=== PATIENT | female | born 1945 | race Caucasian/White ===

== ENCOUNTER 2023-12-11 10:04 | Emergency (ER) | payer OTHER, SELFPAY ==
--- NOTE | ~2023-12-11 | US_ITS ---
EXAMINATION: US ABDOMEN LIMITED CLINICAL INFORMATION: Right upper quadrant pain. COMPARISON: None available. TECHNIQUE: Real-time imaging of the gallbladder and common bile duct only. FINDINGS: GALLBLADDER: Multiple small layering stones are present in the gallbladder. The gallbladder is physiologically distended without wall thickening or pericholecystic fluid. Ramey's sign is positive. COMMON BILE DUCT: Not seen with absolute certainty but could measures 0.3 cm in diameter. US/US abdomen limited IMPRESSION: Cholelithiasis with positive Ramey's sign. No other evidence of cholecystitis is seen.
--- NOTE | ~2023-12-11 | CT_ITS ---
EXAMINATION: CT ABDOMEN AND PELVIS WITH CONTRAST CLINICAL INFORMATION: Right upper quadrant pain COMPARISON: Abdominal ultrasound on 12/11/2023 TECHNIQUE: Multidetector volumetric images were obtained from the superior aspect of the liver through the pubic symphysis following administration 85 mL of Omnipaque 350 intravenous contrast. Sagittal and coronal reformatted images were obtained on the technologist's workstation. Oral contrast: No This CT examination was performed using dose optimization techniques as appropriate, variously including the following: *Automated exposure control *Adjustment of mA and/or kV according to patient size (this includes techniques or standardized protocols for targeted exams where dose is matched to indication/reason for exam; i.e. extremities or head) *Use of iterative reconstruction technique DLP: 644 mGy-cm FINDINGS: LUNG BASES: The visualized lung bases are unremarkable. LIVER, GALLBLADDER, AND BILIARY TREE: The liver is normal in size, shape, and attenuation. No focal hepatic lesion or biliary ductal dilatation is present. The gallbladder is unremarkable with no evidence of gallbladder wall thickening, or obvious pericholecystic inflammatory changes. Cholelithiasis. PANCREAS: Unremarkable. SPLEEN: Unremarkable. ADRENAL GLANDS: Unremarkable. KIDNEYS AND URETERS: The kidneys are normal in size, shape, and attenuation. No hydronephrosis, hydroureter, or calculi seen. No perinephric stranding. BLADDER: Unremarkable. GASTROINTESTINAL TRACT: The small and large bowel are unremarkable. The appendix is unremarkable. ABDOMINAL WALL: No significant hernia is appreciated. LYMPH NODES: Normal. VASCULAR: Unremarkable. PELVIC VISCERA: Unremarkable. OSSEOUS STRUCTURES: Unremarkable. CT/CT abdomen pelvis w IV con IMPRESSION: Cholelithiasis. No evidence of acute cholecystitis. Fleischner guidelines were followed.
--- NOTE | 2023-12-11 10:14 | ECG_ITS ---
Test Reason : ABDOMINAL PAIN Blood Pressure : / mmHG Vent. Rate : 070 BPM Atrial Rate : 070 BPM P-R Int : 150 ms QRS Dur : 074 ms QT Int : 414 ms P-R-T Axes : 052 -32 027 degrees QTc Int : 447 ms Normal sinus rhythm Left axis deviation Cannot rule out Anterior infarct , age undetermined Abnormal ECG No previous ECGs available Referred By: Geetha Asif Electronically Signed By:AGATHA PEREZ
[2023-12-11 10:15] VITALS: BP 138/76; PULSE 70; PULSE 71; RESP 22; TEMP 36.6; O2SAT 100; O2SAT 98; BMI 41.1
--- NOTE | 2023-12-11 10:34 | ED_ITS ---
HPI - General Adult General Chief complaint: Abdominal Pain Stated complaint: RUQ PAIN FROM SNF PER EMS Time Seen by Provider: 12/11/23 10:13 Source: patient Mode of arrival: ambulatory Limitations: no limitations History of Present Illness ED Provider: Geetha Asif PA-C HPI narrative: This is a 78 yo female pmh COPD presenting via EMS from [facility] for RUQ pain radiating to midline and nausea starting last night and worsening this morning. Patient rates the pain a 10/10, constant, and states movement worsens the pain. Also reports mild SOB but states she has a hx of COPD. Patient last ate last night and last bowel movement was this morning. Patient denies fever chills, chest pain, vomiting, diarrhea, constipation, urinary symptoms, headache, weakness, numbness, tingling. No recent travel or sick contacts. Related Data Previous Rx's ?Medication ?Instructions ?Recorded acetaminophen 325 mg capsule 650 mg (2 x 325 mg) PO Q4H PRN 12/11/23 (Tylenol) pain #30 caps Allergies Allergy/AdvReac Type Severity Reaction Status Date / Time adalimumab [From Humira] Allergy Palpitation Verified 12/11/23 10:22 s etanercept [From Enbrel] Allergy Palpitation Verified 12/11/23 10:22 s Review of Systems 2 Review of Systems: Yes all other systems are reviewed and are negative [facility] Past Medical History Attestation statement: The following information was validated with the patient. Source: old records reviewed and nursing notes reviewed Social History Social History Smoked in Last 30 Days: No Use of substances other than those prescribed or required for medical reasons: No Advance Directives: No Physical Exam ED Vital Signs: Vital Signs - 24 hr 12/11/23 10:15 12/11/23 14:47 Temperature 97.9 F 97.2 F Pulse Rate 71 73 Respiratory Rate 22 H 18 Blood Pressure 138/76 121/62 Pulse Oximetry 98 98 Oxygen Delivery Method Room Air Room Air BMI result Body Mass Index 41.1 vss. Appearance: Alert.? Oriented X3.? No acute distress.?Appers uncomfortable on exam table. Head: Normocephalic, atraumatic, no step-offs or deformities Eyes: Pupils equal, round and reactive to light.? Neck: Normal inspection.? Neck supple.? CVS: Normal heart rate and rhythm.? Pulses normal.? Respiratory: No respiratory distress.? Breath sounds normal.? Abdomen: +Extremely tender to palpation in RUQ, +murphys sign, normo-active bowel sounds in all four quadrants? Skin: Skin warm and dry.? Normal skin color.? Normal skin turgor.? Extremities: No lower extremity edema.? No calf ttp. 5/5 strength to bilateral upper and lower extremities Neuro: Oriented X 3.? No motor deficit.? No sensory deficit. CN 2-12 intact Course Reevaluation(s) Reevaluation #1: CBC unremarkable. Chemistry w/ no electrolyte abnormalities needing intervention AST (110) and ALT (64) elevated. A this point, an obstructing stone is suspected. US results still pending. Patient still in pain dilauded ordered. Time: 12:00 Reevaluation #2: Abdominal ultrasound cholelithiasis with positive Ramey sign no other evidence of cholecystitis seen. Abdominal CT cholelithiasis no evidence of acute cholecystitis. Surgery did evaluate this patient who offered for her to stay overnight for observation however patient does not want to stay. Dr. Greenwood recommended she follow up outpatient and return with any new or worsening symptoms. At this time patient to be discharged with Tylenol. Educated patient on diagnosis and treatment plan, answered all question, patient verbalizes understanding. At this time patient will be discharged home, advised to return with new or worsening symptoms. Educated on worrisome signs and symptoms and when to return. At this time I feel comfortable discharge home. She is well-appearing and tolerating p.o. at time of discharge Time: 16:30 Medications Administered Discontinued Medications Generic Name Dose Route Start Last Admin Trade Name Jorge PRN Reason Stop Dose Admin Hydromorphone HCl 0.5 mg 12/11/23 11:52 12/11/23 12:09 Hydromorphone Hcl 0.5 Mg/0.5 Ml Syringe IVPUSH 12/11/23 11:53 0.5 mg ONCE ONE Administration Protocol Iohexol 100 ml 12/11/23 14:27 12/11/23 14:28 Iohexol 350 Mg/Ml 100 Ml Infus..Btl IV 12/11/23 14:28 85 ml ONCE ONE Administration Morphine Sulfate 4 mg 12/11/23 10:32 12/11/23 10:41 Morphine Sulfate 4 Mg/Ml Cartridge IVPUSH 12/11/23 10:33 4 mg ONCE ONE Administration Protocol Medical Decision Making Medical Decision Making [facility] Narrative: 1030 78 yo female pmh COPD presenting via EMS with RUQ abdominal pain and nausea since last night, worsening this morning. PE: Abdomen: +Extremely tender to palpation in RUQ, +murphys sign, normo-active bowel sounds in all four quadrants? Differential: Cholecystitis vs cholelithiasis vs pancreatitis. Unlikely cholangitis, acute abdomen, malignancy, appendicitis, sepsis. Will rule out electrolye abnormalities. No signs of trauma to the area. No bruising. Unlikely shinges. Plan: Labs. imaging, pain control Differential Diagnosis Differential Diagnoses: The differential diagnosis associated with the presentation includes Cholecystitis vs cholelithiasis vs pancreatitis. Unlikely cholangitis, acute abdomen, malignancy, appendicitis, sepsis. Will rule out electrolye abnormalities. No signs of trauma to the area. No bruising. Unlikely shinges. Admission/Observation Consideration of admission/observation: Escalation of care including admission/observation considered possible Lab Data [facility] Lab Attestation statement: I reviewed the patient's lab results. 12/11/23 11:23 12/11/23 11:23 Labs: Lab Results 12/11/23 12/11/23 Range/Units 11:23 11:55 WBC 6.7 (4.8-10.8) X10*3/uL RBC 4.68 (4.20-5.50) X10*6/uL Hgb 13.2 (12.0-16.0) g/dl Hct 38.9 (37.0-47.0) % MCV 83.1 (80.0-98.0) fL MCH 28.2 (27.0-33.0) pg MCHC 33.9 (31.0-35.0) g/dl RDW 15.3 (11.0-16.0) % Plt Count 188 (160-400) X10*3/uL MPV 10.2 (9.4-12.3) fL Immature Gran % (Auto) 0.3 (0.0-0.4) % Neut % (Auto) 67.1 (45-73) % Lymph % (Auto) 21.3 (20-40) % [place] % (Auto) 8.0 (2-11) % Eos % (Auto) 2.4 (0-4) % Baso % (Auto) 0.9 (0-2) % Lymph # (Auto) 1.4 (1.2-4.9) X10*3/uL [place] # (Auto) 0.5 (0.1-1.2) X10*3/uL Eos # (Auto) 0.2 (0.0-0.4) X10*3/uL Baso # (Auto) 0.1 (0.0-0.2) X10*3/uL Abs Immat Gran (auto) 0.02 (0.00-0.03) X10*3/uL Absolute Neuts (auto) 4.5 (2.0-8.3) x10*3/uL Absolute Nucleated RBC 0.000 (0.0-0.012) X10*3/uL Nucleated RBC % (auto) 0.0 (0.0-0.2) /100WBC Sodium 138 (135-145) mmol/L Potassium 3.7 (3.3-5.1) mmol/L Chloride 102 (96-108) mmol/L Carbon Dioxide 27 (22-29) mmol/L Anion Gap 13 (12-20) BUN 20 H (9-16) mg/dL Creatinine 0.97 (0.5-1.4) mg/dL Estim Creat Clear Calc 44.9 Estimated GFR 56 Random Glucose 96 (60-115) mg/dL Calcium 10.0 (8.4-10.2) mg/dL Magnesium 2.3 (1.6-2.6) mg/dL Total Bilirubin 1.0 (0.0-1.0) mg/dL AST 110 H (5-31) U/L ALT 64 H (0-31) U/L Alkaline Phosphatase 96 (39-117) U/L Troponin I High Sens < 2.7 (<3.5-17.0) ng/L Total Protein 7.4 (6.5-8.0) g/dL Albumin 4.0 (3.5-5.0) g/dL Lipase 69 (8-78) U/L Urine Color Yellow Urine Appearance Clear Urine pH >= 9.0 (5.0-9.0) Ur Specific [place] <= 1.005 (1.005-1.025) Urine Protein Negative (Neg-Trace) mg/dL Urine Glucose (UA) Negative (Negative) mg/dL Urine Ketones Negative (Negative) mg/dL Urine Blood Negative (Negative) Urine Nitrite Negative (Negative) Ur Leukocyte Esterase Negative (Negative) Independent Interpretation I performed an independent interpretation of an: EKG (Vent. Rate : 070 BPM Atrial Rate : 070 BPM P-R Int : 150 ms QRS Dur : 074 ms QT Int : 414 ms P-R-T Axes : 052 -32 027 degrees QTc Int : 447 ms Normal sinus rhythm Left axis deviation Cannot rule out Anterior infarct , age undetermined Abnormal ECG No previous ECGs avai) and Ultrasound Radiology Impression Discussion of test interpretation with radiology: I have reviewed the radiologist's reading. Prescription Management I considered prescription management with: Pain Medication (Morphine) Chronic Conditions Patient?s care impacted by: Other (COPD) Critical Care Time Critical Care Time Critical Care Time: Yes Total Critical Care Time: 35 Attestation: I attest to this time spent taking care of the patient, obtaining history, physical, reviewing labs, imaging, speaking to my attending, specialist or hospitalist. Discharge Plan Discharge Clinical Impression: Abdominal pain, RUQ, Gallstones Patient Disposition: Home, Self-Care Instructions: Gallstones (ED), Abdominal Pain (ED) Additional Instructions: Take your medications as prescribed. If you were prescribed antibiotics today, it is important that you take your medication to their entirety, do not skip any doses, do not finish them early. Follow-up with your primary care provider this week. Return to the emergency department with new or worsening symptoms. Such as fevers, chills, chest pain, shortness of breath, nausea, vomiting, dizziness, headache, vision changes, lethargy In case of emergency call 911 Please follow-up with general surgery as soon as possible. Call Saturday to schedule an appointment. Please come back to the emergency department if symptoms worsen or if you develop fever, changes in skin color, nausea, vomiting or inability to tolerate food. CT/CT abdomen pelvis w IV con IMPRESSION: Cholelithiasis. No evidence of acute cholecystitis. Fleischner guidelines were followed. US/US abdomen limited IMPRESSION: Cholelithiasis with positive Ramey's sign. No other evidence of cholecystitis is seen. Prescriptions: New acetaminophen [Tylenol] 325 mg capsule 650 mg PO Q4H PRN (Reason: pain) Qty: 30 0RF Referrals: [facility] [place] [facility] Surgeons [Provider Group] - 1 day Print Language: Canadian
[2023-12-11] MEDS: Morphine Sulfate 4 MG/ML CARTRIDGE IVPUSH (10:41)
[2023-12-11 11:29] LABS: MANUAL DIFF FLAG NO
[2023-12-11 11:30] LABS: Basophils Absolute Auto 0.1 X10*3/uL (0.0-0.2); Basophils Percent Auto 0.9 % (0-2); Eosinophils Absolute Auto 0.2 X10*3/uL (0.0-0.4); Eosinophils Percent Auto 2.4 % (0-4); Hematocrit 38.9 % (37.0-47.0); Hemoglobin 13.2 g/dl (12.0-16.0); Imm Gran Abs Auto 0.02 X10*3/uL (0.00-0.03); Imm Gran Pct Auto 0.3 % (0.0-0.4); Lymphocytes Absolute Auto 1.4 X10*3/uL (1.2-4.9); Lymphocytes Percent Auto 21.3 % (20-40); Mean Corpuscular HGB Conc 33.9 g/dl (31.0-35.0); Mean Corpuscular Hemoglobin 28.2 pg (27.0-33.0); Mean Corpuscular Volume 83.1 fL (80.0-98.0); Mean Platelet Volume 10.2 fL (9.4-12.3); Monocytes Absolute Auto 0.5 X10*3/uL (0.1-1.2); Neutrophils Absolute Auto 4.5 x10*3/uL (2.0-8.3); Neutrophils Percent Auto 67.1 % (45-73); Platelet Count 188 X10*3/uL (160-400); Red Blood Count 4.68 X10*6/uL (4.20-5.50); Red Cell Distribution Width 15.3 % (11.0-16.0); White Blood Count 6.7 X10*3/uL (4.8-10.8)
[2023-12-11 11:47] LABS: Alanine Aminotransferase 64 U/L (0-31); Alkaline Phosphatase 96 U/L (39-117); Anion Gap 13 (12-20); Aspartate Amino Transferase 110 U/L (5-31); Blood Urea Nitrogen 20 mg/dL (9-16); Carbon Dioxide 27 mmol/L (22-29); Chloride 102 mmol/L (96-108); Creatinine Clr Calc Pharmacy 44.9; Estimated Glomerular Filt Rate 56; Glucose Random 96 mg/dL (60-115); Lipase 69 U/L (8-78); Magnesium 2.3 mg/dL (1.6-2.6); Potassium 3.7 mmol/L (3.3-5.1); Sodium 138 mmol/L (135-145); Total Protein 7.4 g/dL (6.5-8.0)
[2023-12-11 11:54] LABS: Troponin-I High Sensitivity < 2.7 ng/L (<3.5-17.0)
[2023-12-11 12:03] LABS: Appearance Urine Clear; Color Urine Yellow; Glucose Urine UA Negative (Negative); Leukocyte Esterase Urine Negative (Negative); Nitrite Urine Negative (Negative); PH >= 9.0 (5.0-9.0); Specific Gravity - Urine <= 1.005 (1.005-1.025); Urine Blood Negative (Negative); Urine Ketones Negative (Negative); Urine Protein Negative (Neg-Trace)
[2023-12-11] MEDS: HYDROmorphone HCl 0.5 MG/0.5 ML SYRINGE IVPUSH (12:09)
[2023-12-11] MEDS: iohexoL 350 MG/ML 100 ML INFUS..BTL IV (14:28)
[2023-12-11 14:47] VITALS: BP 121/62; PULSE 73; RESP 18; TEMP 36.2; O2SAT 98
[2023-12-11 17:11] VITALS: BP 121/62; PULSE 73; RESP 18; TEMP 36.2; O2SAT 98
== END 2023-12-11 17:12 | disposition home or self-care (01) ==
PROVIDERS: Physician Assistant; Emergency Provider Emergency Medicine Emergency Medical Services; PCP Internal Medicine
DX: K80.20 Calculus of gallbladder without cholecystitis without obstruction (principal); R10.11 Right upper quadrant pain; R11.0 Nausea; J44.9 Chronic obstructive pulmonary disease, unspecified
CPT/HCPCS: 36415; 74177; 76705; 80053; 81003; 83690; 83735; 84484; 85025; 93005; 96374; 96375; 99284; J1170; J2270; Q9967

== ENCOUNTER → 2023-12-11 10:14 | Outpatient (BNV) | payer OTHER, SELFPAY | PROVIDERS: Emergency Provider Emergency Medicine Emergency Medical Services; PCP Internal Medicine; Visit Provider Internal Medicine | DX: R10.9 Unspecified abdominal pain (principal); R94.31 Abnormal electrocardiogram [ECG] [EKG] | CPT/HCPCS: 93010 ==

== ENCOUNTER 2023-12-26 12:44 | Inpatient (IN) | payer OTHER, SELFPAY ==
--- NOTE | ~2023-12-26 | US_ITS ---
EXAMINATION: US ABDOMEN LIMITED CLINICAL INFORMATION: Right upper quadrant pain. COMPARISON: None available. TECHNIQUE: Real-time imaging of the right upper quadrant abdominal viscera. FINDINGS: GALLBLADDER: The gallbladder is distended. Multiple stones are seen in the gallbladder. The gallbladder wall is not thickened measuring 2 mm. Ramey's sign is positive no pericholecystic inflammatory change seen. COMMON BILE DUCT: Normal in caliber measuring 0.4 cm in diameter. US/US abdomen limited IMPRESSION: Cholelithiasis with positive Ramey's sign. No gallbladder wall thickening or pericholecystic inflammatory change is seen.
[2023-12-26 13:05] VITALS: BP 146/80; PULSE 75; PULSE 80; RESP 17; TEMP 36.7; O2SAT 98; BMI 31.8
--- NOTE | 2023-12-26 13:10 | ECG_ITS ---
Test Reason : ABDONIMAL PAIN Blood Pressure : / mmHG Vent. Rate : 076 BPM Atrial Rate : 076 BPM P-R Int : 142 ms QRS Dur : 068 ms QT Int : 428 ms P-R-T Axes : 083 -44 031 degrees QTc Int : 481 ms Normal sinus rhythm with sinus arrhythmia Left axis deviation Pulmonary disease pattern Abnormal ECG When compared with ECG of 11-DEC-2023 10:18, No significant change was found Referred By: Felipa Carlos Electronically Signed By:ABHILASH GARCIA MD
--- NOTE | 2023-12-26 13:19 | ED_ITS ---
HPI - Abdominal Pain General Chief Complaint: Abdominal Pain Stated Complaint: RUQ PAIN FROM [facility] PER EMS Time Seen by Provider: 12/26/23 13:00 Source: patient, EMS and old records reviewed Mode of arrival: EMS Limitations: no limitations History of Present Illness ED Provider: SANTIAGO FERRER narrative: 78 yo female with PMH of COPD, pulm HTN, HTN, CHF, VIVIANA, asthma, RA, depression, esophageal stenosis s/p dilations in past not on blood thinners just seen here 12/10 dx with gallstones and sent back to [facility] comes in today with c/o RUQ pain severe with nausea. She notes she didn't eat much for breakfast today but might have had ice cream last night. No fevers reported. MD elicited complaint: abdominal pain Pertinent past history: other (biliary colic) Onset (ago): hour(s) (few) Pain Consistency: constant Location: RUQ Severity: moderate Quality: aching Radiation: none Migration to: no migration Exacerbating factors: eating and movement Relieving factors: nothing Context: history of similar episodes Associated symptoms: nausea Related Data Home Medications ?Medication ?Instructions ?Recorded ?Confirmed acetaminophen 500 mg tablet 1,000 mg PO Q6H PRN Pain 12/26/23 12/26/23 albuterol sulfate 90 mcg/actuation 2 inh inhalation Q4H PRN cough or 12/26/23 12/26/23 aerosol inhaler wheezing dextromethorphan-guaifenesin 10 10 ml PO DAILY PRN Cough 12/26/23 12/26/23 mg-100 mg/5 mL oral syrup esomeprazole magnesium 40 mg 40 mg PO DAILY PRN Acid Reflux 12/26/23 12/26/23 capsule,delayed release fluticasone 500 mcg-salmeterol 50 1 inh inhalation BID 12/26/23 12/26/23 mcg/dose blistr powdr for inhalation hydroxyzine HCl 10 mg tablet 10 mg PO BID 12/26/23 12/26/23 ipratropium 0.5 mg-albuterol 3 mg 3 ml inhalation Q4H PRN SOB 12/26/23 12/26/23 (2.5 mg base)/3 mL nebulization soln magnesium hydroxide 400 mg/5 mL 30 ml PO DAILY PRN Constipation 12/26/23 12/26/23 oral suspension (Milk of Magnesia) multivitamin with folic acid 400 1 tab PO DAILY 12/26/23 12/26/23 mcg tablet (Tab-A-Anitha) naproxen 375 mg tablet 375 mg PO BID 12/26/23 12/26/23 spironolactone 50 mg tablet 50 mg PO DAILY 12/26/23 12/26/23 torsemide 20 mg tablet 100 mg PO DAILY 12/26/23 12/26/23 Allergies Allergy/AdvReac Type Severity Reaction Status Date / Time adalimumab [From Humira] Allergy Palpitation Verified 12/26/23 13:10 s etanercept [From Enbrel] Allergy Palpitation Verified 12/26/23 13:10 s Review of Systems Review of Systems Constitutional : No Weight loss, No Fever, No Chills ENT/Mouth : No sore throat, No Rhinorrhea Eyes: No Swelling, No Redness Cardiovascular : No Chest Pain, No SOB, NoEdema Respiratory : No Cough, No Sputum, No Wheezing Gastrointestinal : Positive Nausea, no Vomiting, no Diarrhea, positive abdominal Pain, No Hematochezia, No Melena Genitourinary : No Dysuria, No Urinary Frequency, No Hematuria, No Urgency Musculoskeletal : No joint pain, No Myalgias, No Joint Swelling Skin : No Skin Lesions, No rash Neuro : No Weakness, No Numbness, No Dizziness, No Headache Psych : No Anxiety/Panic, No Depression Heme/Lymph: No Bruising, No Lymphadenopathy Endocrine : No Polyuria, No Polydipsia All other systems reviewed and are negative. [facility] Past Medical History Attestation statement: The following information was validated with the patient. Source: old records reviewed Medical History Paroxysmal A-fib Lymphedema Rheumatoid arthritis Diastolic CHF Pulmonary HTN COPD (chronic obstructive pulmonary disease) HTN (hypertension) Social History Social History (Updated 12/26/23 @ 13:27 by Felipa Carlos DO) Patient Tobacco Use Status: Never used Tobacco Advance Directives: Yes Advance Directives Information Provided: Yes Advance Directives on File: No Physical Exam ED Vital Signs: Vital Signs - 24 hr 12/26/23 13:05 12/26/23 14:00 Temperature 98.0 F 97.8 F Pulse Rate 80 69 Respiratory Rate 17 12 Blood Pressure 124/46 L Pulse Oximetry 98 94 Oxygen Delivery Method Room Air Room Air BMI result Body Mass Index 31.8 Appearance: Alert. Oriented X3. No acute distress. Eyes: Pupils equal, round and reactive to light. ENT: Pharynx normal. Neck: Normal inspection. Neck supple. CVS: Normal heart rate and rhythm. Pulses normal. Respiratory: No respiratory distress. Breath sounds normal. Abdomen: Soft and moderate RUQ vol guarding no rebound + humphrey's sign. Skin: Skin warm and dry. Normal skin color. Normal skin turgor. Extremities: bilateral nonpitting lower extremity edema. No calf ttp Neuro: Oriented X 3. No motor deficit. No sensory deficit. Medical Decision Making Medical Decision Making [facility] Narrative: 78 yo female with PMH of COPD, pulm HTN, HTN, CHF, VIVIANA, asthma, RA, depression, esophageal stenosis s/p dilations here with c/o recurrent RUQ pain just seen for biliary colic at this time will need basic labs, US to evaluate gallbladder, IV morphine for pain. Possible cholelithiasis, choledocholithiasis, biliary colic Differential Diagnosis Differential Diagnoses: The differential diagnosis associated with the presentation includes biliary colic, cholelithiasis, choledocholithiasis. Admission/Observation Consideration of admission/observation: Escalation of care including admission/observation considered repeat IV pain medications, will consult surgery Consult Healthcare Provider Management of the patient was discussed with: Timber Management Technician (Dr. Greenwood notified) Lab Data [facility] Lab Attestation statement: I reviewed the patient's lab results. 12/26/23 13:28 12/26/23 13:28 Labs: Lab Results 12/26/23 Range/Units 13:28 WBC 8.0 (4.8-10.8) X10*3/uL RBC 4.40 (4.20-5.50) X10*6/uL Hgb 12.5 (12.0-16.0) g/dl Hct 36.5 L (37.0-47.0) % MCV 83.0 (80.0-98.0) fL MCH 28.4 (27.0-33.0) pg MCHC 34.2 (31.0-35.0) g/dl RDW 15.3 (11.0-16.0) % Plt Count 217 (160-400) X10*3/uL MPV 9.8 (9.4-12.3) fL Immature Gran % (Auto) 0.4 (0.0-0.4) % Neut % (Auto) 64.3 (45-73) % Lymph % (Auto) 23.6 (20-40) % [place] % (Auto) 8.3 (2-11) % Eos % (Auto) 2.4 (0-4) % Baso % (Auto) 1.0 (0-2) % Lymph # (Auto) 1.9 (1.2-4.9) X10*3/uL [place] # (Auto) 0.7 (0.1-1.2) X10*3/uL Eos # (Auto) 0.2 (0.0-0.4) X10*3/uL Baso # (Auto) 0.1 (0.0-0.2) X10*3/uL Abs Immat Gran (auto) 0.03 (0.00-0.03) X10*3/uL Absolute Neuts (auto) 5.1 (2.0-8.3) x10*3/uL Absolute Nucleated RBC 0.000 (0.0-0.012) X10*3/uL Nucleated RBC % (auto) 0.0 (0.0-0.2) /100WBC Sodium 138 (135-145) mmol/L Potassium 3.7 (3.3-5.1) mmol/L Chloride 97 (96-108) mmol/L Carbon Dioxide 28 (22-29) mmol/L Anion Gap 17 (12-20) BUN 21 H (9-16) mg/dL Creatinine 1.09 (0.5-1.4) mg/dL Estim Creat Clear Calc 44.4 Estimated GFR 49 Random Glucose 103 (60-115) mg/dL Lactic Acid 1.3 (0.5-2.0) mmol/L Calcium 10.2 (8.4-10.2) mg/dL Magnesium 2.4 (1.6-2.6) mg/dL Total Bilirubin 1.1 H (0.0-1.0) mg/dL Direct Bilirubin 0.7 H (0.0-0.5) mg/dL AST 89 H (5-31) U/L ALT 63 H (0-31) U/L Alkaline Phosphatase 119 H (39-117) U/L Troponin I High Sens < 2.7 (<3.5-17.0) ng/L Total Protein 8.1 H (6.5-8.0) g/dL Albumin 4.3 (3.5-5.0) g/dL Lipase 51 (8-78) U/L Independent Interpretation I performed an independent interpretation of an: EKG and Ultrasound (biliary colic) Interpretation: Rate: 76 Rhythm: NSR [place]: left Normal P waves. Normal [place]. Normal QRS complex. ST T wave : inverted t waves V1 and V2, no KATTY qTC: 481 prior studies: no acute ischemia The study has been interpreted contemporaneously by me. . Radiology Impression Discussion of test interpretation with radiology: I have reviewed the radiologist's reading. Independent Historian Clinical information obtained from an independent historian. History obtained from or confirmed by: EMS External Record Review External record reviewed: Inpatient record and Outpatient record Medications Administered Discontinued Medications Generic Name Dose Route Start Last Admin Trade Name Freq PRN Reason Stop Dose Admin Morphine Sulfate 4 mg 12/26/23 13:10 12/26/23 13:51 Morphine Sulfate 4 Mg/Ml Cartridge IVPUSH 12/26/23 13:11 4 mg ONCE ONE Administration Protocol Ondansetron HCl 4 mg 12/26/23 13:10 12/26/23 13:51 Ondansetron Hcl 4 Mg/2 Ml Vial IVPUSH 12/26/23 13:11 4 mg ONCE ONE Administration Critical Care Time Critical Care Time Critical Care Time: Yes Total Critical Care Time: 45 Attestation: review of records, repeat IV pain medications with some relief, medical consult I attest to this time spent taking care of the patient Discharge Plan Discharge Clinical Impression: Abdominal pain, Biliary colic Patient Disposition: Admitted As Inpatient Prescriptions: No Action naproxen 375 mg tablet 375 mg PO BID ipratropium-albuterol 0.5 mg-3 mg(2.5 mg base)/3 mL solution for nebulization 3 ml inhalation Q4H PRN (Reason: SOB) torsemide 20 mg tablet 100 mg PO DAILY dextromethorphan-guaifenesin 10-100 mg/5 mL syrup 10 ml PO DAILY PRN (Reason: Cough) acetaminophen 500 mg Tablet 1,000 mg PO Q6H PRN (Reason: Pain) magnesium hydroxide [Milk of Magnesia] 400 mg/5 mL Suspension 30 ml PO DAILY PRN (Reason: Constipation) esomeprazole magnesium 40 mg capsule,delayed release(DR/EC) 40 mg PO DAILY PRN (Reason: Acid Reflux) fluticasone propion-salmeterol 500-50 mcg/dose blister with device 1 inh INHALATION BID albuterol sulfate 90 mcg/actuation HFA aerosol inhaler 2 inh inhalation Q4H PRN (Reason: cough or wheezing) hydroxyzine HCl 10 mg tablet 10 mg PO BID spironolactone 50 mg tablet 50 mg PO DAILY multivitamin with folic acid [Tab-A-Anitha] 400 mcg tablet 1 tab PO DAILY Print Language: Divehi
[2023-12-26] MEDS: Morphine Sulfate 4 MG/ML CARTRIDGE IVPUSH ×2 (13:51→20:05)
[2023-12-26] MEDS: ondansetron HCL 4 MG/2 ML VIAL IVPUSH (13:51)
[2023-12-26 13:56] LABS: MANUAL DIFF FLAG NO
[2023-12-26 13:57] LABS: Basophils Absolute Auto 0.1 X10*3/uL (0.0-0.2); Eosinophils Absolute Auto 0.2 X10*3/uL (0.0-0.4); Eosinophils Percent Auto 2.4 % (0-4); Hematocrit 36.5 % (37.0-47.0); Hemoglobin 12.5 g/dl (12.0-16.0); Imm Gran Abs Auto 0.03 X10*3/uL (0.00-0.03); Imm Gran Pct Auto 0.4 % (0.0-0.4); Lymphocytes Absolute Auto 1.9 X10*3/uL (1.2-4.9); Lymphocytes Percent Auto 23.6 % (20-40); Mean Corpuscular HGB Conc 34.2 g/dl (31.0-35.0); Mean Corpuscular Hemoglobin 28.4 pg (27.0-33.0); Mean Platelet Volume 9.8 fL (9.4-12.3); Monocytes Absolute Auto 0.7 X10*3/uL (0.1-1.2); Monocytes Percent Auto 8.3 % (2-11); Neutrophils Absolute Auto 5.1 x10*3/uL (2.0-8.3); Neutrophils Percent Auto 64.3 % (45-73); Platelet Count 217 X10*3/uL (160-400); Red Cell Distribution Width 15.3 % (11.0-16.0)
[2023-12-26 14:00] VITALS: BP 124/46; PULSE 69; RESP 12; TEMP 36.6; O2SAT 94
[2023-12-26 14:04] LABS: Lactic Acid 1.3 mmol/L (0.5-2.0)
--- NOTE | 2023-12-26 14:11 | PHA.MEDREC ---
Pharmacy Consult ? Medication Reconciliation Pharmacy has completed the medication reconciliation, pt came in with list from [facility], list matched all claims hx.
[2023-12-26 14:20] LABS: Troponin-I High Sensitivity < 2.7 ng/L (<3.5-17.0)
[2023-12-26 15:12] LABS: Alanine Aminotransferase 63 U/L (0-31); Albumin Level 4.3 g/dL (3.5-5.0); Alkaline Phosphatase 119 U/L (39-117); Anion Gap 17 (12-20); Aspartate Amino Transferase 89 U/L (5-31); Bilirubin Direct 0.7 mg/dL (0.0-0.5); Bilirubin Total 1.1 mg/dL (0.0-1.0); Blood Urea Nitrogen 21 mg/dL (9-16); Calcium 10.2 mg/dL (8.4-10.2); Carbon Dioxide 28 mmol/L (22-29); Chloride 97 mmol/L (96-108); Creatinine Clr Calc Pharmacy 44.4; Estimated Glomerular Filt Rate 49; Glucose Random 103 mg/dL (60-115); Lipase 51 U/L (8-78); Magnesium 2.4 mg/dL (1.6-2.6); Potassium 3.7 mmol/L (3.3-5.1); Sodium 138 mmol/L (135-145); Total Protein 8.1 g/dL (6.5-8.0)
[2023-12-26] MEDS: HYDROmorphone HCl 0.5 MG/0.5 ML SYRINGE IVPUSH (15:50)
--- NOTE | 2023-12-26 16:20 | PM.HPGS ---
History of Present Illness History of Present Illness Date of Service: 12/26/23 Chief complaint: Acute cholecystitis Narrative: Radha Johns is a 78 year old female presenting with complaints of abdominal pain in the right upper quadrant starting this morning. Her appetite has been poor and diet restricted prior to this and she had prior visits to the ED for similar complaints. She was diagnosed with symptomatic cholelithaisis and was due to see a surgeon next week. Workup today revealed a slight bump in her LFTs and ultrasound confirms stones within the gallbladder without wall thickening or pericholecystic fluid. She is admitted to the surgical service for management of the acute cholecystitis. Review of Systems Review of Systems: Yes Unobtainable due to mental condition PMFSH Past Medical History Medical History Paroxysmal A-fib Lymphedema Rheumatoid arthritis Diastolic CHF Pulmonary HTN COPD (chronic obstructive pulmonary disease) HTN (hypertension) Social History Social History (Updated 12/26/23 @ 13:27 by Felipa Carlos DO) Patient Tobacco Use Status: Never used Tobacco Advance Directives: Yes Advance Directives Information Provided: Yes Advance Directives on File: No Meds Allergies Allergy/AdvReac Type Severity Reaction Status Date / Time adalimumab [From Humira] Allergy Palpitation Verified 12/26/23 13:10 s etanercept [From Enbrel] Allergy Palpitation Verified 12/26/23 13:10 s Active Medications: Current Medications Calcium Carbonate (Calcium Carbonate 750 Mg Tab.Chew) 750 mg PO Q4H PRN PRN Reason: Heartburn Lactated Ringer's (Lr) 1,000 mls @ 100 mls/hr IVCONT .Q10H [facility] Magnesium Hydroxide (Milk Of Magnesia 30 Ml Oral.Susp) 30 ml PO DAILY PRN PRN Reason: Constipation Melatonin (Melatonin 3 Mg Tablet) 6 mg PO BEDTIME PRN PRN Reason: Insomnia Morphine Sulfate (Morphine Sulfate 4 Mg/Ml Cartridge) 4 mg IVPUSH Q4H PRN; Protocol PRN Reason: Pain, Severe (Pain Scale 7-10) Ondansetron HCl (Ondansetron Hcl 4 Mg/2 Ml Vial) 4 mg IVPUSH QID PRN PRN Reason: Nausea Sodium Chloride (0.9 % Sodium Chloride Flush 3 Ml Syringe) 3 ml IVFLUSH QSHIFT [facility] Home Medications ?Medication ?Instructions ?Recorded ?Confirmed ?Last Taken ?Type acetaminophen 500 mg tablet 1,000 mg PO Q6H PRN Pain 12/26/23 12/26/23 Unknown History albuterol sulfate 90 mcg/actuation 2 inh inhalation Q4H PRN cough or 12/26/23 12/26/23 Unknown History aerosol inhaler wheezing dextromethorphan-guaifenesin 10 10 ml PO DAILY PRN Cough 12/26/23 12/26/23 Unknown History mg-100 mg/5 mL oral syrup esomeprazole magnesium 40 mg 40 mg PO DAILY PRN Acid Reflux 12/26/23 12/26/23 Unknown History capsule,delayed release fluticasone 500 mcg-salmeterol 50 1 inh inhalation BID 12/26/23 12/26/23 Unknown History mcg/dose blistr powdr for inhalation hydroxyzine HCl 10 mg tablet 10 mg PO BID 12/26/23 12/26/23 Unknown History ipratropium 0.5 mg-albuterol 3 mg 3 ml inhalation Q4H PRN SOB 12/26/23 12/26/23 Unknown History (2.5 mg base)/3 mL nebulization soln magnesium hydroxide 400 mg/5 mL 30 ml PO DAILY PRN Constipation 12/26/23 12/26/23 Unknown History oral suspension (Milk of Magnesia) multivitamin with folic acid 400 1 tab PO DAILY 12/26/23 12/26/23 Unknown History mcg tablet (Tab-A-Anitha) naproxen 375 mg tablet 375 mg PO BID 12/26/23 12/26/23 Unknown History spironolactone 50 mg tablet 50 mg PO DAILY 12/26/23 12/26/23 Unknown History torsemide 20 mg tablet 100 mg PO DAILY 12/26/23 12/26/23 Unknown History Physical Exam Vital Signs: Vital Signs: Last Vital Signs Temp 97.8 F 12/26/23 14:00 Pulse 69 12/26/23 14:00 Resp 12 12/26/23 14:00 BP 124/46 L 12/26/23 14:00 Pulse Ox 94 12/26/23 14:00 O2 Del Method Room Air 12/26/23 14:00 BMI result Body Mass Index 31.8 Const: General: cooperative and no acute distress Nutritional Appearance: well nourished Orientation/consciousness: patient oriented x3 Limitations: no limitations HEENT: Head: Yes normocephalic and Yes atraumatic Ears: hearing grossly normal bilaterally Resp: Effort & Inspection: normal respiratory effort, no audible wheezes, no cough and no respiratory distress Cardio: Jugular venous distension: no JVD GI: Inspection: Yes normal to inspection Palpation (GI): Soft to palpation, Tenderness to palpation present (GI) in the RUQ and Ramey's sign positive; with no rebound tenderness and no masses Percussion: Yes normal to percussion Auscultation: normal bowel sounds Rectal Exam - Female: deferred Skin: Other: Warm, dry, no rash Neuro: General: patient oriented x3 Extrem: General: Yes no clubbing, cyanosis or edema Results Results Labs: Short CBC 12/26/23 Range/Units 13:28 WBC 8.0 (4.8-10.8) X10*3/uL Hgb 12.5 (12.0-16.0) g/dl Hct 36.5 L (37.0-47.0) % Plt Count 217 (160-400) X10*3/uL BMP 12/26/23 13:28 Sodium 138 Potassium 3.7 Chloride 97 Carbon Dioxide 28 BUN 21 H Creatinine 1.09 Calcium 10.2 Liver Function 12/26/23 Range/Units 13:28 Total Bilirubin 1.1 H (0.0-1.0) mg/dL Direct Bilirubin 0.7 H (0.0-0.5) mg/dL AST 89 H (5-31) U/L ALT 63 H (0-31) U/L Alkaline Phosphatase 119 H (39-117) U/L Albumin 4.3 (3.5-5.0) g/dL Assessment and Plan (1) Acute cholecystitis due to biliary calculus: Status: Acute Plan Admit to surgery for lap or possible open cholecystectomy Hospitalist consultation for preop eval Zosyn IV Pain management I discussed admission and laparoscopic cholecystectomy/possible open with the patient's son (Wilfrido) and he agrees to the admission and surgery. Quality Stroke Does the patient have a stroke diagnosis?: No VTE Prior VTE?: No VTE Risk Level:: Surgical - moderate VTE Device Contraindication: N/A - Device Ordered VTE Drug Contraindication: Treatment Not Indicated Procedures Date of Service Date of Service: 12/26/23
[2023-12-26] MEDS: Lactated Ringers 1,000 ML 100 ML IVCONT (17:21)
[2023-12-26] MEDS: Piperacillin Sodium/Tazobactam 3.375 GM in 0.9 % Sodium Chloride 50 ML IV ×2 (18:05→23:26)
--- NOTE | 2023-12-26 18:24 | P.CONHOSP_ITS ---
History of Present Illness Data of Consult Service Date: 12/26/23 Primary Care Provider: Jeo Smith MD [facility] Reason for consult: Pre-op risk assessment Patient is a 78-year-old female with a PMH significant for HTN, CHF, COPD, pulmonary hypertension, VIVIANA, asthma, RA, CAD with PA s/p stenting, and esophageal stenosis s/p dilations who presented to the ED from [facility] complaining of RUQ abdominal pain since this morning. Workup in the ED showed elevated LFTs and ultrasound showed cholelithiasis with positive Ramey's sign. Patient was admitted to general surgery services for management of acute cholecystitis with likely cholecystectomy in the morning. Hospitalist consult for pre-op risk assessment. Pt reports abdominal pain well controlled with current analgesic regimine. Currently no nausea and last vomiting earlier in the day. Chronic SOB around baseline. Pt otherwise has not acute medical complaints. Pt does report a significant cardiac past medical history, including PA s/p stenting 2-3 years ago and CHF last hospitalized around a year ago. Pt also has had an abdominal blood clot and esophageal stenosis with last dilation 1.5 years ago. Review of Systems 2 Review of Systems: RUQ abdominal pain N/V earlier in the day Chronic SOB around baseline No chest pain or pressure Denies lower leg edema No fever, chills PMFSH Medical History Paroxysmal A-fib Lymphedema Rheumatoid arthritis Diastolic CHF Pulmonary HTN COPD (chronic obstructive pulmonary disease) HTN (hypertension) Social History Household Members: None Patient Tobacco Use Status: Never used Tobacco Advance Directives Date on File: 12/26/23 Meds Allergies Allergy/AdvReac Type Severity Reaction Status Date / Time adalimumab [From Humira] Allergy Palpitation Verified 12/26/23 13:10 s etanercept [From Enbrel] Allergy Palpitation Verified 12/26/23 13:10 s Active Medications: Current Medications Calcium Carbonate (Calcium Carbonate 750 Mg Tab.Chew) 750 mg PO Q4H PRN PRN Reason: Heartburn Lactated Ringer's (Lr) 1,000 mls @ 100 mls/hr IVCONT .Q10H [facility] Last Admin: 12/26/23 17:21 Dose: 100 mls/hr Piperacillin Sod/Tazobactam (Sod 3.375 gm/ Sodium Chloride) 50 mls @ 100 mls/hr IV Q6H [facility] Last Admin: 12/26/23 18:05 Dose: 100 mls/hr Magnesium Hydroxide (Milk Of Magnesia 30 Ml Oral.Susp) 30 ml PO DAILY PRN PRN Reason: Constipation Melatonin (Melatonin 3 Mg Tablet) 6 mg PO BEDTIME PRN PRN Reason: Insomnia Morphine Sulfate (Morphine Sulfate 4 Mg/Ml Cartridge) 4 mg IVPUSH Q4H PRN; Protocol PRN Reason: Pain, Severe (Pain Scale 7-10) Ondansetron HCl (Ondansetron Hcl 4 Mg/2 Ml Vial) 4 mg IVPUSH QID PRN PRN Reason: Nausea Sodium Chloride (0.9 % Sodium Chloride Flush 3 Ml Syringe) 3 ml IVFLUSH QSHIFT [facility] Home Medications ?Medication ?Instructions ?Recorded ?Confirmed ?Last Taken ?Type acetaminophen 500 mg tablet 1,000 mg PO Q6H PRN Pain 12/26/23 12/26/23 Unknown History albuterol sulfate 90 mcg/actuation 2 inh inhalation Q4H PRN cough or 12/26/23 12/26/23 Unknown History aerosol inhaler wheezing dextromethorphan-guaifenesin 10 10 ml PO DAILY PRN Cough 12/26/23 12/26/23 Unknown History mg-100 mg/5 mL oral syrup esomeprazole magnesium 40 mg 40 mg PO DAILY PRN Acid Reflux 12/26/23 12/26/23 Unknown History capsule,delayed release fluticasone 500 mcg-salmeterol 50 1 inh inhalation BID 12/26/23 12/26/23 Unknown History mcg/dose blistr powdr for inhalation hydroxyzine HCl 10 mg tablet 10 mg PO BID 12/26/23 12/26/23 Unknown History ipratropium 0.5 mg-albuterol 3 mg 3 ml inhalation Q4H PRN SOB 12/26/23 12/26/23 Unknown History (2.5 mg base)/3 mL nebulization soln magnesium hydroxide 400 mg/5 mL 30 ml PO DAILY PRN Constipation 12/26/23 12/26/23 Unknown History oral suspension (Milk of Magnesia) multivitamin with folic acid 400 1 tab PO DAILY 12/26/23 12/26/23 Unknown History mcg tablet (Tab-A-Anitha) naproxen 375 mg tablet 375 mg PO BIDWM 12/26/23 12/26/23 Unknown History spironolactone 50 mg tablet 50 mg PO DAILY 12/26/23 12/26/23 Unknown History torsemide 20 mg tablet 100 mg PO DAILY 12/26/23 12/26/23 Unknown History Physical Exam 2 Vital Signs and Narrative: Vital Signs: Last Vital Signs Temp 97.8 F 12/26/23 14:00 Pulse 69 12/26/23 14:00 Resp 12 12/26/23 14:00 BP 124/46 L 12/26/23 14:00 Pulse Ox 94 12/26/23 14:00 O2 Del Method Room Air 12/26/23 14:00 BMI result Body Mass Index 31.8 Results Labs 12/26/23 13:28 12/26/23 13:28 Labs: Laboratory Results - last 24 hr 12/26/23 13:28 MCV 83.0 MCH 28.4 MCHC 34.2 RDW 15.3 Plt Count 217 MPV 9.8 Immature Gran % (Auto) 0.4 Neut % (Auto) 64.3 Lymph % (Auto) 23.6 [place] % (Auto) 8.3 Eos % (Auto) 2.4 Baso % (Auto) 1.0 Lymph # (Auto) 1.9 [place] # (Auto) 0.7 Eos # (Auto) 0.2 Baso # (Auto) 0.1 Abs Immat Gran (auto) 0.03 Absolute Neuts (auto) 5.1 Absolute Nucleated RBC 0.000 Nucleated RBC % (auto) 0.0 Anion Gap 17 Estim Creat Clear Calc 44.4 Estimated GFR 49 Random Glucose 103 Lactic Acid 1.3 Calcium 10.2 Magnesium 2.4 Total Bilirubin 1.1 H Direct Bilirubin 0.7 H AST 89 H ALT 63 H Alkaline Phosphatase 119 H Troponin I High Sens < 2.7 Total Protein 8.1 H Albumin 4.3 Lipase 51 Imaging Radiologist's Impressions: Impressions Abdomen Ultrasound 12/26/23 14:10 IMPRESSION: Cholelithiasis with positive Ramey's sign. No gallbladder wall thickening or pericholecystic inflammatory change is seen. Assessment and Plan (1) Acute cholecystitis: Status: Acute Plan Patient is a 78-year-old female with a PMH significant for HTN, CHF, COPD, pulmonary hypertension, VIVIANA, asthma, RA, CAD with PA s/p stenting, and esophageal stenosis s/p dilations who presented to the ED from [facility] complaining of RUQ abdominal pain since this morning. Workup in the ED showed elevated LFTs and ultrasound showed cholelithiasis with positive Ramey's sign. Patient was admitted to general surgery services for management of acute cholecystitis with likely cholecystectomy in the morning. Hospitalist consult for pre-op risk assessment. Acute cholecystitis Plan as per general surgery Pre-op risk assessment Pt with significant cardiac history, including CHF, PA/CAD s/p stenting Given pt's history and comorbidities, she will be a high risk patient: RCRI score of 3, class IV risk However, currently asymptomatic and at baseline for SOB BNP mildly elevated at 119, no pleural effusions on CT EKG without significant ischemic changes No further cardiac workup indicated at this time CHF Unspecified, though likely diastolic given hx of pulmonary hypertension Not in acute exacerabtion Hold diuretics due to soft BP Resume as indicated Hx of esophageal stenosis Last dilation around 1 year ago Pt should have a ground/mechanically altered diet once diet advanced COPD Not in acute exacerbation Continue home inhalers VIVIANA On 2L NC at night Thank you for allowing us to participate in the care of this patient. Will continue following along with you for now.
[2023-12-26 19:18] LABS: B Type Natriuretic Peptide 119 pg/mL (<100)
[2023-12-26 19:35] VITALS: BMI 31.6
[2023-12-26 20:00] VITALS: BP 97/58; PULSE 80; RESP 18; TEMP 36.3; O2SAT 99
[2023-12-27] VITALS (23 sets, daily range): BP systolic 101–138; BP diastolic 52–69; PULSE 60–75; RESP 12–21; TEMP 36.1–37.2; O2SAT 94–100
[2023-12-27] MEDS: Lactated Ringers 1,000 ML 100 ML IVCONT (02:49)
[2023-12-27] MEDS: Morphine Sulfate 4 MG/ML CARTRIDGE IVPUSH (05:40)
[2023-12-27] MEDS: Piperacillin Sodium/Tazobactam 3.375 GM in 0.9 % Sodium Chloride 50 ML IV ×3 (05:46→19:15)
[2023-12-27] MEDS: hydrOXYzine HCL 10 MG TABLET PO ×2 (08:02→20:39)
--- NOTE | 2023-12-27 08:42 | PM.PNGS ---
Subjective Subjective Date of Service: 12/27/23 Interval history: Patient continues to report abdominal pain mainly in the right upper quadrant. She denies any nausea or vomiting. She is ready for surgery today. Physical Exam Vital Signs: Vital Signs: Last Vital Signs Temp 96.9 F 12/27/23 08:00 Pulse 72 12/27/23 08:00 Resp 18 12/27/23 08:00 BP 128/67 12/27/23 08:00 Pulse Ox 99 12/27/23 08:00 O2 Del Method Room Air 12/27/23 08:00 BMI result Body Mass Index 31.6 Const: General: no acute distress Nutritional Appearance: well nourished Resp: Effort & Inspection: normal respiratory effort GI: Palpation (GI): Soft to palpation, Tenderness to palpation present (GI) in the RUQ and Ramey's sign positive, no guarding and not rigid Percussion: Yes normal to percussion Auscultation: normal bowel sounds Rectal Exam - Female: deferred Skin: General skin exam: no rashes or lesions noted Objective Data Active Medications Albuterol Sulfate (Albuterol Sulfate 90 Mcg 8 Gm Inhaler) 2 puff INHALE Q4H PRN PRN Reason: cough or wheezing Albuterol/Ipratropium (Albuterol/Iprat 2.5/0.5mg 3 Ml Ampul.Neb) 3 ml INHALE Q4H PRN PRN Reason: Shortness of Breath Calcium Carbonate (Calcium Carbonate 750 Mg Tab.Chew) 750 mg PO Q4H PRN PRN Reason: Heartburn Fluticasone/Vilanterol (Fluticasone/Vilanterol 200/25 Blst.W.Dev) 1 puff INHALE DAILY [facility] Guaifenesin/Dextromethorphan (Guaifenesin Dm 100/10/5 Ml 5 Ml Syrup) 10 ml PO DAILY PRN PRN Reason: Cough Hydroxyzine HCl (Hydroxyzine Hcl 10 Mg Tablet) 10 mg PO BID [facility] Last Admin: 12/27/23 08:02 Dose: 10 mg Documented By: SALINAS Lactated Ringer's (Lr) 1,000 mls @ 100 mls/hr IVCONT .Q10H [facility] Last Admin: 12/27/23 02:49 Dose: 100 mls/hr Documented By: GIOVANNA Piperacillin Sod/Tazobactam (Sod 3.375 gm/ Sodium Chloride) 50 mls @ 100 mls/hr IV Q6H [facility] Last Infusion: 12/27/23 06:21 Dose: Infused Documented By: GIOVANNA Magnesium Hydroxide (Milk Of Magnesia 30 Ml Oral.Susp) 30 ml PO DAILY PRN PRN Reason: Constipation Melatonin (Melatonin 3 Mg Tablet) 6 mg PO BEDTIME PRN PRN Reason: Insomnia Morphine Sulfate (Morphine Sulfate 4 Mg/Ml Cartridge) 4 mg IVPUSH Q4H PRN; Protocol PRN Reason: Pain, Severe (Pain Scale 7-10) Last Admin: 12/27/23 05:40 Dose: 4 mg Documented By: GIOVANNA Multivitamins/Vitamin C (Multivitamin Tablet) 1 tab PO DAILY [facility] Last Admin: 12/27/23 08:02 Dose: Not Given Documented By: SALINAS Non-Admin Reason: NPO Omeprazole (Omeprazole 20 Mg Capsule.Dr) 20 mg PO DAILY PRN PRN Reason: Acid Reflux Ondansetron HCl (Ondansetron Hcl 4 Mg/2 Ml Vial) 4 mg IVPUSH QID PRN PRN Reason: Nausea Sodium Chloride (0.9 % Sodium Chloride Flush 3 Ml Syringe) 3 ml IVFLUSH QSHIFT [facility] Last Admin: 12/27/23 08:02 Dose: Not Given Documented By: SALINAS Non-Admin Reason: Headache Labs 12/26/23 13:28 12/26/23 13:28 Labs: Laboratory Results - last 24 hr 12/26/23 12/26/23 13:28 18:51 MCV 83.0 MCH 28.4 MCHC 34.2 RDW 15.3 Plt Count 217 MPV 9.8 Immature Gran % (Auto) 0.4 Neut % (Auto) 64.3 Lymph % (Auto) 23.6 [place]ayer % (Auto) 8.3 Eos % (Auto) 2.4 Baso % (Auto) 1.0 Lymph # (Auto) 1.9 [place]ayer # (Auto) 0.7 Eos # (Auto) 0.2 Baso # (Auto) 0.1 Abs Immat Gran (auto) 0.03 Absolute Neuts (auto) 5.1 Absolute Nucleated RBC 0.000 Nucleated RBC % (auto) 0.0 Anion Gap 17 Estim Creat Clear Calc 44.4 Estimated GFR 49 Random Glucose 103 Lactic Acid 1.3 Calcium 10.2 Magnesium 2.4 Total Bilirubin 1.1 H Direct Bilirubin 0.7 H AST 89 H ALT 63 H Alkaline Phosphatase 119 H Troponin I High Sens < 2.7 B-Natriuretic Peptide 119 H Total Protein 8.1 H Albumin 4.3 Lipase 51 Procedures Date of Service Date of Service: 12/27/23 Progress Note: A&P Assessment and plan (1) Acute cholecystitis due to biliary calculus: Status: Acute Plan 78-year-old female patient with complaints of right upper quadrant abdominal pain found to have cholecystitis with cholelithiasis. Patient on schedule for today for laparoscopic or possible open cholecystectomy. Discussed the procedure with the patient and her son (Wilfrido), and they consent to laparoscopic or possible open cholecystectomy. Time Spent With Patient Time: Total time managing care of this patient today ____ minutes. Quality Stroke Does the patient have a stroke diagnosis?: No VTE Prior VTE?: No VTE Risk Level:: Surgical - moderate VTE Device Contraindication: N/A - Device Ordered VTE Drug Contraindication: Treatment Not Indicated
--- NOTE | 2023-12-27 09:34 | MHC.CM.PN ---
This assembly instructions writer met with patient for CM assessment. A&O x3 able to answer all questions. IMM delivered. Lives @ [facility] for about 1 year. Has nursing services via [facility]. PCP verified. Reports having HCP- this assembly instructions writer requested copy from [facility]. Patient goal for d/c is to return to [facility]. [facility] to transport.
[2023-12-27] MEDS: oxyCODONE HCl Immed Release 5 MG TABLET PO ×2 (09:55→17:56)
[2023-12-27] MEDS: Fluticasone/Vilanterol 200/25 BLST.W.DEV 1 PUFF INHALE (09:56)
[2023-12-27] MEDS: Lactated Ringers 1,000 ML 80 ML IVCONT ×2 (12:21→20:33)
--- NOTE | 2023-12-27 12:51 | MHC.SHP ---
Pre-Procedural Eval Section A - 24 Hr Update-Section A only Date of Service: 12/27/23 The patient is an INPATIENT: Yes Changes since office visit: No Cold of Flu in the past 2 weeks, No New Medical Problems, No Changes in Medication and No Patient answered all questions The patient has been examined within 24 hours of the surgical procedure. The History & Physical has been completed within 30 days and I have reviewed it.: Yes Section B - Complete if H&P > 30 days Chief Complaint: Acute cholecystitis Allergies: Allergies Allergy/AdvReac Type Severity Reaction Status Date / Time adalimumab [From Humira] Allergy Palpitation Verified 12/26/23 13:10 s etanercept [From Enbrel] Allergy Palpitation Verified 12/26/23 13:10 s Plan I have reviewed the history and physical and performed a pertinent physical examination on my patient. No changes have occurred unless specified. Time Spent With Patient Time: Total time managing care of this patient today ____ minutes.
--- NOTE | 2023-12-27 14:00 | P.CONAN_ITS ---
[facility] Active Problems Active Problems: All Active Problems Acute cholecystitis (Acute) Acute cholecystitis due to biliary calculus (Acute) Biliary colic (Acute) Abdominal pain (Acute) Past Medical History Medical History Paroxysmal A-fib Lymphedema Rheumatoid arthritis Diastolic CHF Pulmonary HTN COPD (chronic obstructive pulmonary disease) HTN (hypertension) Family History Family history of problems with anesthesia: No Surgical History History of Problems with Anesthesia: No Social History Social History Household Members: None Patient Tobacco Use Status: Never used Tobacco Second Hand Smoke Exposure: No Advance Directives Date on File: 12/26/23 service: No Meds Allergies Allergy/AdvReac Type Severity Reaction Status Date / Time adalimumab [From Humira] Allergy Palpitation Verified 12/26/23 13:10 s etanercept [From Enbrel] Allergy Palpitation Verified 12/26/23 13:10 s Active Medications: Current Medications Albuterol Sulfate (Albuterol Sulfate 90 Mcg 8 Gm Inhaler) 2 puff INHALE Q4H PRN PRN Reason: cough or wheezing Albuterol/Ipratropium (Albuterol/Iprat 2.5/0.5mg 3 Ml Ampul.Neb) 3 ml INHALE Q4H PRN PRN Reason: Shortness of Breath Calcium Carbonate (Calcium Carbonate 750 Mg Tab.Chew) 750 mg PO Q4H PRN PRN Reason: Heartburn Fluticasone/Vilanterol (Fluticasone/Vilanterol 200/25 Blst.W.Dev) 1 puff INHALE DAILY [facility] Last Admin: 12/27/23 09:56 Dose: 1 puff Guaifenesin/Dextromethorphan (Guaifenesin Dm 100/10/5 Ml 5 Ml Syrup) 10 ml PO DAILY PRN PRN Reason: Cough Hydroxyzine HCl (Hydroxyzine Hcl 10 Mg Tablet) 10 mg PO BID [facility] Last Admin: 12/27/23 08:02 Dose: 10 mg Lactated Ringer's (Lr) 1,000 mls @ 100 mls/hr IVCONT .Q10H [facility] Last Admin: 12/27/23 02:49 Dose: 100 mls/hr Piperacillin Sod/Tazobactam (Sod 3.375 gm/ Sodium Chloride) 50 mls @ 100 mls/hr IV Q6H [facility] Last Infusion: 12/27/23 12:28 Dose: Infused Lactated Ringer's (Lr) 1,000 mls @ 80 mls/hr IVCONT .[id number] [facility] Last Admin: 12/27/23 12:21 Dose: 80 mls/hr Magnesium Hydroxide (Milk Of Magnesia 30 Ml Oral.Susp) 30 ml PO DAILY PRN PRN Reason: Constipation Melatonin (Melatonin 3 Mg Tablet) 6 mg PO BEDTIME PRN PRN Reason: Insomnia Morphine Sulfate (Morphine Sulfate 4 Mg/Ml Cartridge) 4 mg IVPUSH Q4H PRN; Protocol PRN Reason: Pain, Severe (Pain Scale 7-10) Last Admin: 12/27/23 05:40 Dose: 4 mg Multivitamins/Vitamin C (Multivitamin Tablet) 1 tab PO DAILY [facility] Last Admin: 12/27/23 08:02 Dose: Not Given Omeprazole (Omeprazole 20 Mg Capsule.Dr) 20 mg PO DAILY PRN PRN Reason: Acid Reflux Ondansetron HCl (Ondansetron Hcl 4 Mg/2 Ml Vial) 4 mg IVPUSH QID PRN PRN Reason: Nausea Oxycodone HCl (Oxycodone Hcl Immed Release 5 Mg Tablet) 5 mg PO Q4H PRN PRN Reason: Pain, Moderate(Pain Scale 4-6) Last Admin: 12/27/23 09:55 Dose: 5 mg Sodium Chloride (0.9 % Sodium Chloride Flush 3 Ml Syringe) 3 ml IVFLUSH QSHIFT [facility] Last Admin: 12/27/23 08:02 Dose: Not Given Home Medications ?Medication ?Instructions ?Recorded ?Confirmed ?Last Taken ?Type acetaminophen 500 mg tablet 1,000 mg PO Q6H PRN Pain 12/26/23 12/26/23 Unknown History albuterol sulfate 90 mcg/actuation 2 inh inhalation Q4H PRN cough or 12/26/23 12/26/23 Unknown History aerosol inhaler wheezing dextromethorphan-guaifenesin 10 10 ml PO DAILY PRN Cough 12/26/23 12/26/23 Unknown History mg-100 mg/5 mL oral syrup esomeprazole magnesium 40 mg 40 mg PO DAILY PRN Acid Reflux 12/26/23 12/26/23 Unknown History capsule,delayed release fluticasone 500 mcg-salmeterol 50 1 inh inhalation BID 12/26/23 12/26/23 Unknown History mcg/dose blistr powdr for inhalation hydroxyzine HCl 10 mg tablet 10 mg PO BID 12/26/23 12/26/23 Unknown History ipratropium 0.5 mg-albuterol 3 mg 3 ml inhalation Q4H PRN SOB 12/26/23 12/26/23 Unknown History (2.5 mg base)/3 mL nebulization soln magnesium hydroxide 400 mg/5 mL 30 ml PO DAILY PRN Constipation 12/26/23 12/26/23 Unknown History oral suspension (Milk of Magnesia) multivitamin with folic acid 400 1 tab PO DAILY 12/26/23 12/26/23 Unknown History mcg tablet (Tab-A-Anitha) naproxen 375 mg tablet 375 mg PO BIDWM 12/26/23 12/26/23 Unknown History spironolactone 50 mg tablet 50 mg PO DAILY 12/26/23 12/26/23 Unknown History torsemide 20 mg tablet 100 mg PO DAILY 12/26/23 12/26/23 Unknown History Exam Height,Weight and Vital Signs: Height 5 ft 3 in Weight 80.9 kg Last Vital Signs Temp 98.2 F 12/27/23 12:15 Pulse 71 12/27/23 12:15 Resp 16 12/27/23 12:15 BP 103/54 L 12/27/23 12:15 Pulse Ox 95 12/27/23 12:15 O2 Del Method Room Air 12/27/23 12:15 Pertinent Lab Results Pertinent Lab Results: Laboratory Tests 12/26/23 12/26/23 13:28 18:51 WBC 8.0 RBC 4.40 Hgb 12.5 Hct 36.5 L MCV 83.0 MCH 28.4 MCHC 34.2 RDW 15.3 Plt Count 217 MPV 9.8 Immature Gran % (Auto) 0.4 Neut % (Auto) 64.3 Lymph % (Auto) 23.6 [place] % (Auto) 8.3 Eos % (Auto) 2.4 Baso % (Auto) 1.0 Lymph # (Auto) 1.9 [place] # (Auto) 0.7 Eos # (Auto) 0.2 Baso # (Auto) 0.1 Abs Immat Gran (auto) 0.03 Absolute Neuts (auto) 5.1 Absolute Nucleated RBC 0.000 Nucleated RBC % (auto) 0.0 Sodium 138 Potassium 3.7 Chloride 97 Carbon Dioxide 28 Anion Gap 17 BUN 21 H Creatinine 1.09 Estim Creat Clear Calc 44.4 Estimated GFR 49 Random Glucose 103 Lactic Acid 1.3 Calcium 10.2 Magnesium 2.4 Total Bilirubin 1.1 H Direct Bilirubin 0.7 H AST 89 H ALT 63 H Alkaline Phosphatase 119 H Troponin I High Sens < 2.7 B-Natriuretic Peptide 119 H Total Protein 8.1 H Albumin 4.3 Lipase 51 Airway Mallampati Class: III TM Dist: >3cm Neck ROM: Limited Loose/Missing/Broken Teeth: Lower Assessment and Plan Assessment Anesthesia Assessment: Anesthesia Plan Discussed and Chart Reviewed Final Anesthetic Review Family History of Problems with Anesthesia: No History of Problems with Anesthesia: No NPO: Yes ASA Class: III and Emergency Final Preanesthetic Review: No Changes in Pt Med Stat, Meds/Allgs Chart Reviewed, Consent Obtained/Reviewed and Anes Risks/Benef Reviewed Patient Risk: Intermediate Procedure Risk: Intermediate Anesthetic Plan Anesthetic Plan: GA Disposition: Standard PACU
--- NOTE | 2023-12-27 16:05 | HO.PM.IMPN ---
Subjective Subjective Date of Service: 12/27/23 Interval History: seen and evaluated pain better controlled no overnight events Review of Systems Review of Systems: Yes all other systems are reviewed and are negative Physical Exam Vital Signs: Vital Signs: Last Vital Signs Temp 98.2 F 12/27/23 12:15 Pulse 71 12/27/23 12:15 Resp 16 12/27/23 12:15 BP 103/54 L 12/27/23 12:15 Pulse Ox 95 12/27/23 12:15 O2 Del Method Room Air 12/27/23 12:15 BMI result Body Mass Index 31.6 Const: Other: Constitutional : Awake, interactive, not in distress Neck : Normal inspection, Supple Cardiovascular : RRR, no JVP, no lower extremity edema Respiratory : good bilateral air entry, no crackles, wheezes or rhonchi Gastrointestinal: soft, lax, Normal bowel sounds, RUQ mild tenderness Skin : Warm, Dry Neurological : Alert & oriented x3, No focal deficit Objective Data Active Medications Albuterol Sulfate (Albuterol Sulfate 90 Mcg 8 Gm Inhaler) 2 puff INHALE Q4H PRN PRN Reason: cough or wheezing Albuterol/Ipratropium (Albuterol/Iprat 2.5/0.5mg 3 Ml Ampul.Neb) 3 ml INHALE Q4H PRN PRN Reason: Shortness of Breath Calcium Carbonate (Calcium Carbonate 750 Mg Tab.Chew) 750 mg PO Q4H PRN PRN Reason: Heartburn Fentanyl (Fentanyl Citrate/Pf 100 Mcg/2 Ml Vial) 50 mcg IVPUSH Q5M PRN PRN Reason: Pain, Severe (Pain Scale 7-10) Stop: 12/27/23 20:02 Fluticasone/Vilanterol (Fluticasone/Vilanterol 200/25 Blst.W.Dev) 1 puff INHALE DAILY [facility] Last Admin: 12/27/23 09:56 Dose: 1 puff Documented By: SALINAS Guaifenesin/Dextromethorphan (Guaifenesin Dm 100/10/5 Ml 5 Ml Syrup) 10 ml PO DAILY PRN PRN Reason: Cough Hydroxyzine HCl (Hydroxyzine Hcl 10 Mg Tablet) 10 mg PO BID [facility] Last Admin: 12/27/23 08:02 Dose: 10 mg Documented By: SALINAS Lactated Ringer's (Lr) 1,000 mls @ 100 mls/hr IVCONT .Q10H [facility] Last Admin: 12/27/23 02:49 Dose: 100 mls/hr Documented By: GIOVANNA Piperacillin Sod/Tazobactam (Sod 3.375 gm/ Sodium Chloride) 50 mls @ 100 mls/hr IV Q6H [facility] Last Infusion: 12/27/23 12:28 Dose: Infused Documented By: SALINAS Lactated Ringer's (Lr) 1,000 mls @ 80 mls/hr IVCONT .[id number] [facility] Last Admin: 12/27/23 12:21 Dose: 80 mls/hr Documented By: JASPER Magnesium Hydroxide (Milk Of Magnesia 30 Ml Oral.Susp) 30 ml PO DAILY PRN PRN Reason: Constipation Melatonin (Melatonin 3 Mg Tablet) 6 mg PO BEDTIME PRN PRN Reason: Insomnia Morphine Sulfate (Morphine Sulfate 4 Mg/Ml Cartridge) 4 mg IVPUSH Q4H PRN; Protocol PRN Reason: Pain, Severe (Pain Scale 7-10) Last Admin: 12/27/23 05:40 Dose: 4 mg Documented By: GIOVANNA Multivitamins/Vitamin C (Multivitamin Tablet) 1 tab PO DAILY [facility] Last Admin: 12/27/23 08:02 Dose: Not Given Documented By: SALINAS Non-Admin Reason: NPO Omeprazole (Omeprazole 20 Mg Capsule.Dr) 20 mg PO DAILY PRN PRN Reason: Acid Reflux Ondansetron HCl (Ondansetron Hcl 4 Mg/2 Ml Vial) 4 mg IVPUSH QID PRN PRN Reason: Nausea Ondansetron HCl (Ondansetron Hcl 4 Mg/2 Ml Vial) 4 mg IVPUSH ONCE PRN PRN Reason: Nausea and Vomiting Stop: 12/27/23 20:02 Oxycodone HCl (Oxycodone Hcl Immed Release 5 Mg Tablet) 5 mg PO Q4H PRN PRN Reason: Pain, Moderate(Pain Scale 4-6) Last Admin: 12/27/23 09:55 Dose: 5 mg Documented By: SALINAS Sodium Chloride (0.9 % Sodium Chloride Flush 3 Ml Syringe) 3 ml IVFLUSH QSHIFT [facility] Last Admin: 12/27/23 08:02 Dose: Not Given Documented By: SALINAS Non-Admin Reason: Headache Labs 12/26/23 13:28 12/26/23 13:28 Labs: Laboratory Results - last 24 hr 12/26/23 18:51 B-Natriuretic Peptide 119 H Microbiology Microbiology Results: Microbiology 12/26/23 13:41 Blood Culture - Preliminary Blood - Venous No growth after 24 hours. 12/26/23 13:28 Blood Culture - Preliminary Blood - Venous No growth after 24 hours. Assessment and Plan (1) Acute cholecystitis: Status: Acute Plan Patient is a 78-year-old female with a PMH significant for HTN, CHF, COPD, pulmonary hypertension, VIVIANA, asthma, RA, CAD with NM s/p stenting, and esophageal stenosis s/p dilations who presented to the ED from [facility] complaining of RUQ abdominal pain since this morning. Workup in the ED showed elevated LFTs and ultrasound showed cholelithiasis with positive Ramey's sign. Patient was admitted to general surgery services for management of acute cholecystitis with likely cholecystectomy in the morning. Hospitalist consult for pre-op risk assessment. Acute cholecystitis Plan for laprascopic CCY surgery following CHF, Unspecified Not in acute exacerabtion Hold BP meds and diuretics due to soft BP Hx of esophageal stenosis Last dilation around 1 year ago Pt should have a ground/mechanically altered diet once diet advanced COPD Not in acute exacerbation Continue home inhalers VIVIANA On 2L NC at night Thank you for allowing us to participate in the care of this patient. Will continue following along with you for now. Quality Stroke Does the patient have a stroke diagnosis?: No VTE Prior VTE?: No VTE Risk Level:: Surgical - moderate VTE Device Contraindication: N/A - Device Ordered VTE Drug Contraindication: Treatment Not Indicated
--- NOTE | 2023-12-27 16:59 | P.OP_ITS ---
Operative Note Operative Note Date of Service: 12/27/23 Narrative: Preoperative diagnosis: [] Acute cholecystitis Postop diagnosis: [] The same Procedure [] laparoscopic cholecystectomy Surgeon: [] Supa Coating Supervisor: [] Flaco Type of Anesthesia: [] General Indication for surgery: [] Markedly edematous turgid gallbladder with omental adhesions to it. Omental adhesions to the periumbilical area secondary to patient's prior lower abdominal surgery in the distant past Findings: [] Patient brought to the operating room, placed on operative table in supine position, after an adequate level of general anesthesia was induced, the patient's abdomen which was moderately corpulent was prepped and draped in usual sterile fashion. Using a supraumbilical curvilinear incision, Romeo technique was used to insufflate abdominal cavity to 15 mm of CO2. Upper midline and right subcostal ports were placed under direct laparoscopic view, and the patient placed in reverse Trendelenburg position, and tilted to the left. Findings were as noted above. The markedly turgid gallbladder was decompressed with an aspirating device and then grasped using laparoscopic graspers, and retracted superiorly and laterally. Omental adhesions swept off the gallbladder with the hilum was approached. Common bile duct was identified and preserved throughout the procedure. Cystic artery and cystic duct were each identified, circumferentially skeletonized, traced directly into the gallb ladder, and critical view obtained. Each was clipped proximally x2, distally x1, and transected. Gallbladder which was moderately intrahepatic was then cauterized from the gallbladder fossa using Bovie. Specimen was placed in an Endo-Catch bag, a retrieved through the umbilical port. Abdominal cavity was copiously irrigated, and secured hemostasis. All ports removed under direct laparoscopic view. Wounds were closed in the following manner; umbilical wound is fascia reapproximated using interrupted 0 Vicryl sutures. Skin wounds were closed using subcuticular 4-0 Vicryl sutures followed by Steri-Strips and sterile dressings. Wounds were infiltrated 0.5% Marcaine at completion. Sponge, needle, and instrument counts reported correct. Patient tolerated the procedure well and emerged from anesthesia stable condition. EBL minimal
[2023-12-27] MEDS: fentaNYL citrate/PF 100 MCG/2 ML VIAL 50 MCG IVPUSH ×4 (17:10→17:55)
[2023-12-27] MEDS: Ketorolac Tromethamine 30 MG/ML VIAL IVPUSH (18:16)
[2023-12-27] MEDS: HYDROmorphone HCl 0.5 MG/0.5 ML SYRINGE IVPUSH (19:07)
[2023-12-27] MEDS: Melatonin 3 MG TABLET 6 MG PO (20:43)
[2023-12-27] MEDS: 0.9 % Sodium Chloride Flush 3 ML SYRINGE IVFLUSH (20:44)
[2023-12-28] VITALS (7 sets, daily range): BP systolic 104–113; BP diastolic 50–62; PULSE 66–84; RESP 14–18; TEMP 36–36.6; O2SAT 96–99
[2023-12-28 06:29] LABS: Hematocrit 34.2 % (37.0-47.0); Hemoglobin 11.3 g/dl (12.0-16.0); Mean Corpuscular Hemoglobin 28.6 pg (27.0-33.0); Mean Corpuscular Volume 86.6 fL (80.0-98.0); Mean Platelet Volume 9.8 fL (9.4-12.3); Platelet Count 186 X10*3/uL (160-400); Red Blood Count 3.95 X10*6/uL (4.20-5.50); Red Cell Distribution Width 15.7 % (11.0-16.0); White Blood Count 6.8 X10*3/uL (4.8-10.8)
[2023-12-28 06:40] LABS: Anion Gap 14 (12-20); Blood Urea Nitrogen 17 mg/dL (9-16); Calcium 9.1 mg/dL (8.4-10.2); Carbon Dioxide 27 mmol/L (22-29); Chloride 103 mmol/L (96-108); Creatinine Clr Calc Pharmacy 45.9; Estimated Glomerular Filt Rate 51; Glucose Random 114 mg/dL (60-115); Potassium 4.4 mmol/L (3.3-5.1); Sodium 140 mmol/L (135-145)
[2023-12-28] MEDS: Multivitamin TABLET 1 TAB PO (08:25)
[2023-12-28] MEDS: Torsemide 20 MG TABLET 40 MG PO (08:25)
[2023-12-28] MEDS: Spironolactone 25 MG TABLET PO (08:25)
[2023-12-28] MEDS: hydrOXYzine HCL 10 MG TABLET PO ×2 (08:25→20:33)
--- NOTE | 2023-12-28 09:57 | HO.POSTANES ---
Post Anesthesia Evaluation Post Anesthesia Evaluation Date of Service: 12/28/23 Vital Signs: Vital Signs Temp Pulse Resp BP Pulse Ox O2 Del Method O2 Flow Rate 12/28/23 08:25 108/57 L 12/28/23 08:25 108/57 L 12/28/23 07:07 96.8 F 66 16 113/53 L 98 Room Air 12/28/23 06:47 97 Room Air 12/28/23 03:34 97.6 F 69 16 113/62 99 Nasal Cannula 2.5 12/27/23 23:54 97.3 F 63 16 111/56 L 99 Nasal Cannula 2.5 Anesthesia: General Endotracheal-GETA Mental Status: Awake Pain Control: Satisfactory (tolerant to opioids) Nausea/Vomiting: None Hydration: Adequate Anesthesia-Related Issues: No Anes. Related Issues
--- NOTE | 2023-12-28 11:24 | P.PNIM_ITS ---
Subjective Subjective Date of Service: 12/28/23 Interval History: seen and evaluated pain better controlled post op tolerating diet no overnight events Physical Exam 2 Vital Signs: Vital Signs: Last Vital Signs Temp 96.8 F 12/28/23 07:07 Pulse 66 12/28/23 07:07 Resp 16 12/28/23 07:07 BP 108/57 L 12/28/23 08:25 Pulse Ox 98 12/28/23 07:07 O2 Del Method Room Air 12/28/23 07:07 O2 Flow Rate 2.5 12/28/23 03:34 BMI result Body Mass Index 31.6 Const: Other: Constitutional : Awake, interactive, not in distress Neck : Normal inspection, Supple Cardiovascular : RRR, no JVP, no lower extremity edema Respiratory : good bilateral air entry, no crackles, wheezes or rhonchi Gastrointestinal: soft, lax, Normal bowel sounds, n o tenderness Skin : Warm, Dry Neurological : Alert & oriented x3, No focal deficit Objective Data Active Medications Acetaminophen (Acetaminophen 325 Mg Tablet) 650 mg PO Q6H PRN PRN Reason: fever, pain Albuterol Sulfate (Albuterol Sulfate 90 Mcg 8 Gm Inhaler) 2 puff INHALE Q4H PRN PRN Reason: cough or wheezing Albuterol/Ipratropium (Albuterol/Iprat 2.5/0.5mg 3 Ml Ampul.Neb) 3 ml INHALE Q4H PRN PRN Reason: Shortness of Breath Calcium Carbonate (Calcium Carbonate 750 Mg Tab.Chew) 750 mg PO Q4H PRN PRN Reason: Heartburn Fluticasone/Vilanterol (Fluticasone/Vilanterol 200/25 Blst.W.Dev) 1 puff INHALE DAILY [facility] Last Admin: 12/28/23 10:39 Dose: Not Given Documented By: MARYAM Non-Admin Reason: not given respiratory. Guaifenesin/Dextromethorphan (Guaifenesin Dm 100/10/5 Ml 5 Ml Syrup) 10 ml PO DAILY PRN PRN Reason: Cough Hydroxyzine HCl (Hydroxyzine Hcl 10 Mg Tablet) 10 mg PO BID [facility] Last Admin: 12/28/23 08:25 Dose: 10 mg Documented By: MARYAM Magnesium Hydroxide (Milk Of Magnesia 30 Ml Oral.Susp) 30 ml PO DAILY PRN PRN Reason: Constipation Melatonin (Melatonin 3 Mg Tablet) 6 mg PO BEDTIME PRN PRN Reason: Insomnia Last Admin: 12/27/23 20:43 Dose: 6 mg Documented By: GIOVANNA Morphine Sulfate (Morphine Sulfate 4 Mg/Ml Cartridge) 4 mg IVPUSH Q4H PRN; Protocol PRN Reason: Pain, Severe (Pain Scale 7-10) Last Admin: 12/27/23 05:40 Dose: 4 mg Documented By: GIOVANNA Multivitamins/Vitamin C (Multivitamin Tablet) 1 tab PO DAILY [facility] Last Admin: 12/28/23 08:25 Dose: 1 tab Documented By: MARYAM Omeprazole (Omeprazole 20 Mg Capsule.Dr) 20 mg PO DAILY PRN PRN Reason: Acid Reflux Ondansetron HCl (Ondansetron Hcl 4 Mg/2 Ml Vial) 4 mg IVPUSH QID PRN PRN Reason: Nausea Oxycodone HCl (Oxycodone Hcl Immed Release 5 Mg Tablet) 5 mg PO Q4H PRN PRN Reason: Pain, Moderate(Pain Scale 4-6) Last Admin: 12/27/23 17:56 Dose: 5 mg Documented By: DANGELL Sodium Chloride (0.9 % Sodium Chloride Flush 3 Ml Syringe) [facility] Last Admin: 12/28/23 07:09 Dose: Not Given Documented By: MARYAM Non-Admin Reason: IV Running Spironolactone (Spironolactone 25 Mg Tablet) 25 mg PO DAILY [facility]; Protocol Last Admin: 12/28/23 08:25 Dose: 25 mg Documented By: MARYAM Torsemide (Torsemide 20 Mg Tablet) 40 mg PO DAILY [facility]; Protocol Last Admin: 12/28/23 08:25 Dose: 40 mg Documented By: MARYAM Labs 12/28/23 05:36 12/28/23 05:36 Labs: Laboratory Results - last 24 hr 12/28/23 05:36 MCV 86.6 MCH 28.6 MCHC 33.0 RDW 15.7 Plt Count 186 MPV 9.8 Absolute Nucleated RBC 0.000 Nucleated RBC % (auto) 0.0 Anion Gap 14 Estim Creat Clear Calc 45.9 Estimated GFR 51 Random Glucose 114 Calcium 9.1 D Microbiology Microbiology Results: Microbiology 12/26/23 13:41 Blood Culture - Preliminary Blood - Venous Prelim: GPC Gram Stain only 12/26/23 13:28 Blood Culture - Preliminary Blood - Venous No growth after 24 hours. Assessment and Plan (1) Diastolic CHF: Status: Acute Plan Patient is a 78-year-old female with a PMH significant for HTN, CHF, COPD, pulmonary hypertension, VIVIANA, asthma, RA, CAD with [place] s/p stenting, and esophageal stenosis s/p dilations who presented to the ED from [facility] complaining of RUQ abdominal pain since this morning. Workup in the ED showed elevated LFTs and ultrasound showed cholelithiasis with positive Ramey's sign. Patient was admitted to general surgery services for management of acute cholecystitis with likely cholecystectomy in the morning. Hospitalist consult for pre-op risk assessment. Acute cholecystitis POD 1 post laprascopic CCY surgery following CHF, Unspecified, not in acute exacerabtion restart Torsemide and Spironolactone for now Hx of esophageal stenosis Last dilation around 1 year ago ground/mechanically altered diet COPD Not in acute exacerbation Continue home inhalers VIVIANA On 2L NC at night Thank you for allowing us to participate in the care of this patient. Will continue following along with you for now. Quality Stroke Does the patient have a stroke diagnosis?: No VTE Prior VTE?: No VTE Risk Level:: Surgical - moderate VTE Device Contraindication: N/A - Device Ordered VTE Drug Contraindication: Treatment Not Indicated
--- NOTE | 2023-12-28 14:34 | PM.PNGS ---
Subjective Subjective Date of Service: 12/28/23 Interval history: Patient is doing very well. She has tolerating a diet. SHe is ambulating. She has minimal incisional discomfort. Patient wishes to be discharged home. Blood culture results noted Physical Exam Vital Signs: Vital Signs: Last Vital Signs Temp 97.2 F 12/28/23 12:00 Pulse 77 12/28/23 12:00 Resp 14 12/28/23 12:00 BP 111/53 L 12/28/23 12:00 Pulse Ox 97 12/28/23 12:00 O2 Del Method Room Air 12/28/23 12:00 O2 Flow Rate 2.5 12/28/23 03:34 BMI result Body Mass Index 31.6 GI: Other: Abdomen is soft, moderately corpulent. All dressings clean dry and intact Objective Data Active Medications Acetaminophen (Acetaminophen 325 Mg Tablet) 650 mg PO Q6H PRN PRN Reason: fever, pain Albuterol Sulfate (Albuterol Sulfate 90 Mcg 8 Gm Inhaler) 2 puff INHALE Q4H PRN PRN Reason: cough or wheezing Albuterol/Ipratropium (Albuterol/Iprat 2.5/0.5mg 3 Ml Ampul.Neb) 3 ml INHALE Q4H PRN PRN Reason: Shortness of Breath Calcium Carbonate (Calcium Carbonate 750 Mg Tab.Chew) 750 mg PO Q4H PRN PRN Reason: Heartburn Fluticasone/Vilanterol (Fluticasone/Vilanterol 200/25 Blst.W.Dev) 1 puff INHALE DAILY [facility] Last Admin: 12/28/23 10:39 Dose: Not Given Documented By: MARYAM Non-Admin Reason: not given respiratory. Guaifenesin/Dextromethorphan (Guaifenesin Dm 100/10/5 Ml 5 Ml Syrup) 10 ml PO DAILY PRN PRN Reason: Cough Hydroxyzine HCl (Hydroxyzine Hcl 10 Mg Tablet) 10 mg PO BID [facility] Last Admin: 12/28/23 08:25 Dose: 10 mg Documented By: MARYAM Magnesium Hydroxide (Milk Of Magnesia 30 Ml Oral.Susp) 30 ml PO DAILY PRN PRN Reason: Constipation Melatonin (Melatonin 3 Mg Tablet) 6 mg PO BEDTIME PRN PRN Reason: Insomnia Last Admin: 12/27/23 20:43 Dose: 6 mg Documented By: GIOVANNA Morphine Sulfate (Morphine Sulfate 4 Mg/Ml Cartridge) 4 mg IVPUSH Q4H PRN; Protocol PRN Reason: Pain, Severe (Pain Scale 7-10) Last Admin: 12/27/23 05:40 Dose: 4 mg Documented By: GIOVANNA Multivitamins/Vitamin C (Multivitamin Tablet) 1 tab PO DAILY [facility] Last Admin: 12/28/23 08:25 Dose: 1 tab Documented By: MARYAM Omeprazole (Omeprazole 20 Mg Capsule.Dr) 20 mg PO DAILY PRN PRN Reason: Acid Reflux Ondansetron HCl (Ondansetron Hcl 4 Mg/2 Ml Vial) 4 mg IVPUSH QID PRN PRN Reason: Nausea Oxycodone HCl (Oxycodone Hcl Immed Release 5 Mg Tablet) 5 mg PO Q4H PRN PRN Reason: Pain, Moderate(Pain Scale 4-6) Last Admin: 12/27/23 17:56 Dose: 5 mg Documented By: DANGELTaye Sodium Chloride (0.9 % Sodium Chloride Flush 3 Ml Syringe) [facility] Last Admin: 12/28/23 07:09 Dose: Not Given Documented By: MARYAM Non-Admin Reason: IV Running Spironolactone (Spironolactone 25 Mg Tablet) 25 mg PO DAILY [facility]; Protocol Last Admin: 12/28/23 08:25 Dose: 25 mg Documented By: MARYAM Torsemide (Torsemide 20 Mg Tablet) 40 mg PO DAILY [facility]; Protocol Last Admin: 12/28/23 08:25 Dose: 40 mg Documented By: MARYAM Labs 12/28/23 05:36 12/28/23 05:36 Labs: Laboratory Results - last 24 hr 12/28/23 05:36 MCV 86.6 MCH 28.6 MCHC 33.0 RDW 15.7 Plt Count 186 MPV 9.8 Absolute Nucleated RBC 0.000 Nucleated RBC % (auto) 0.0 Anion Gap 14 Estim Creat Clear Calc 45.9 Estimated GFR 51 Random Glucose 114 Calcium 9.1 D Microbiology Microbiology Results: Microbiology 12/26/23 13:41 Blood Culture - Preliminary Blood - Venous Prelim: GPC Gram Stain only 12/26/23 13:28 Blood Culture - Preliminary Blood - Venous No growth after 24 hours. Procedures Date of Service Date of Service: 12/28/23 Progress Note: A&P Assessment and plan (1) Postop check: Status: Acute Plan Patient's focus of infection has been excised (gallbladder) . She is doing very well. Patient wishes to be discharged to her ECF. Arrangements were made for this. All questions answered. Local wound care will be provided in discharge instructions addendum; I have just been informed that the patient can not return to her ECF until Saturday. We will hold discharge until then Time Spent With Patient Time: Total time managing care of this patient today ____ minutes. Quality Stroke Does the patient have a stroke diagnosis?: No VTE Prior VTE?: No VTE Risk Level:: Surgical - moderate VTE Device Contraindication: N/A - Device Ordered VTE Drug Contraindication: Treatment Not Indicated
[2023-12-28] MEDS: 0.9 % Sodium Chloride Flush 3 ML SYRINGE IVFLUSH ×2 (15:03→20:33)
[2023-12-28] MEDS: oxyCODONE HCl Immed Release 5 MG TABLET PO (20:35)
[2023-12-29 04:00] VITALS: BP 111/59; PULSE 73; RESP 16; TEMP 36.7; O2SAT 95
[2023-12-29] MEDS: oxyCODONE HCl Immed Release 5 MG TABLET PO ×3 (06:08→20:18)
[2023-12-29 07:07] VITALS: BP 118/60; PULSE 74; RESP 16; TEMP 36; O2SAT 98
[2023-12-29] MEDS: Torsemide 20 MG TABLET 40 MG PO (07:42)
[2023-12-29] MEDS: Spironolactone 25 MG TABLET PO (07:42)
[2023-12-29] MEDS: Multivitamin TABLET 1 TAB PO (07:42)
[2023-12-29] MEDS: hydrOXYzine HCL 10 MG TABLET PO ×2 (07:42→20:18)
[2023-12-29] MEDS: 0.9 % Sodium Chloride Flush 3 ML SYRINGE IVFLUSH ×3 (07:44→20:19)
[2023-12-29 12:00] VITALS: BP 122/67; PULSE 80; RESP 16; TEMP 36.2; O2SAT 96
--- NOTE | 2023-12-29 13:24 | P.PNGS_ITS ---
Subjective Subjective Date of Service: 12/29/23 Interval history: Patient was doing well. Tolerating a diet. Ambulating. Minimal incisional discomfort. Physical Exam 2 Vital Signs: Vital Signs: Last Vital Signs Temp 97.1 F 12/29/23 12:00 Pulse 80 12/29/23 12:00 Resp 16 12/29/23 12:00 BP 122/67 12/29/23 12:00 Pulse Ox 96 12/29/23 12:00 O2 Del Method Room Air 12/29/23 12:00 O2 Flow Rate 2.5 12/28/23 03:34 BMI result Body Mass Index 31.6 Eyes: Other: Anicteric GI: Other: Abdomen is soft. All wounds clean dry and intact Objective Data Active Medications Acetaminophen (Acetaminophen 325 Mg Tablet) 650 mg PO Q6H PRN PRN Reason: fever, pain Albuterol Sulfate (Albuterol Sulfate 90 Mcg 8 Gm Inhaler) 2 puff INHALE Q4H PRN PRN Reason: cough or wheezing Albuterol/Ipratropium (Albuterol/Iprat 2.5/0.5mg 3 Ml Ampul.Neb) 3 ml INHALE Q4H PRN PRN Reason: Shortness of Breath Calcium Carbonate (Calcium Carbonate 750 Mg Tab.Chew) 750 mg PO Q4H PRN PRN Reason: Heartburn Fluticasone/Vilanterol (Fluticasone/Vilanterol 200/25 Blst.W.Dev) 1 puff INHALE DAILY [facility] Last Admin: 12/29/23 09:50 Dose: Not Given Documented By: MARYAM Non-Admin Reason: not given by respiratory Guaifenesin/Dextromethorphan (Guaifenesin Dm 100/10/5 Ml 5 Ml Syrup) 10 ml PO DAILY PRN PRN Reason: Cough Hydroxyzine HCl (Hydroxyzine Hcl 10 Mg Tablet) 10 mg PO BID [facility] Last Admin: 12/29/23 07:42 Dose: 10 mg Documented By: MARYAM Magnesium Hydroxide (Milk Of Magnesia 30 Ml Oral.Susp) 30 ml PO DAILY PRN PRN Reason: Constipation Melatonin (Melatonin 3 Mg Tablet) 6 mg PO BEDTIME PRN PRN Reason: Insomnia Last Admin: 12/27/23 20:43 Dose: 6 mg Documented By: GIOVANNA Morphine Sulfate (Morphine Sulfate 4 Mg/Ml Cartridge) 4 mg IVPUSH Q4H PRN; Protocol PRN Reason: Pain, Severe (Pain Scale 7-10) Last Admin: 12/27/23 05:40 Dose: 4 mg Documented By: GIOVANNA Multivitamins/Vitamin C (Multivitamin Tablet) 1 tab PO DAILY [facility] Last Admin: 12/29/23 07:42 Dose: 1 tab Documented By: MARYAM Omeprazole (Omeprazole 20 Mg Capsule.Dr) 20 mg PO DAILY PRN PRN Reason: Acid Reflux Ondansetron HCl (Ondansetron Hcl 4 Mg/2 Ml Vial) 4 mg IVPUSH QID PRN PRN Reason: Nausea Oxycodone HCl (Oxycodone Hcl Immed Release 5 Mg Tablet) 5 mg PO Q4H PRN PRN Reason: Pain, Moderate(Pain Scale 4-6) Last Admin: 12/29/23 06:08 Dose: 5 mg Documented By: GIOVANNA Sodium Chloride (0.9 % Sodium Chloride Flush 3 Ml Syringe) [facility] Last Admin: 12/29/23 07:44 Dose: 3 ml Documented By: MARYAM Spironolactone (Spironolactone 25 Mg Tablet) 25 mg PO DAILY [facility]; Protocol Last Admin: 12/29/23 07:42 Dose: 25 mg Documented By: MARYAM Torsemide (Torsemide 20 Mg Tablet) 40 mg PO DAILY [facility]; Protocol Last Admin: 12/29/23 07:42 Dose: 40 mg Documented By: MARYAM Labs 12/28/23 05:36 12/28/23 05:36 Microbiology Microbiology Results: Microbiology 12/26/23 13:41 Blood Culture - Final Blood - Venous Coag negative Staphylococcus 12/26/23 13:28 Blood Culture - Preliminary Blood - Venous No growth after 48 hours. Procedures Date of Service Date of Service: 12/29/23 Progress Note: A&P Assessment and plan (1) Postop check: Status: Acute (2) Status post laparoscopic cholecystectomy: Status: Acute Plan Patient is doing well. Unfortunately, her ECF states that she can not return there until Saturday. Continue current plan. Time Spent With Patient Time: Total time managing care of this patient today ____ minutes. Quality Stroke Does the patient have a stroke diagnosis?: No VTE Prior VTE?: No VTE Risk Level:: Surgical - moderate VTE Device Contraindication: N/A - Device Ordered VTE Drug Contraindication: Treatment Not Indicated
[2023-12-29 15:09] VITALS: BP 130/57; PULSE 81; RESP 16; TEMP 36.2; O2SAT 98
[2023-12-29 19:04] VITALS: BP 102/60; PULSE 75; RESP 16; TEMP 36.3; O2SAT 96
[2023-12-30] VITALS: RESP 16
[2023-12-30 03:38] VITALS: BP 114/56; PULSE 75; RESP 16; TEMP 36.2; O2SAT 94
[2023-12-30] MEDS: oxyCODONE HCl Immed Release 5 MG TABLET PO ×2 (04:32→09:14)
[2023-12-30 08:00] VITALS: BP 118/58; PULSE 73; RESP 18; TEMP 36.2; O2SAT 93
[2023-12-30] MEDS: hydrOXYzine HCL 10 MG TABLET PO (08:40)
[2023-12-30] MEDS: Multivitamin TABLET 1 TAB PO (08:40)
[2023-12-30] MEDS: Torsemide 20 MG TABLET 40 MG PO (08:40)
[2023-12-30] MEDS: Spironolactone 25 MG TABLET PO (08:40)
[2023-12-30] MEDS: 0.9 % Sodium Chloride Flush 3 ML SYRINGE IVFLUSH (08:41)
--- NOTE | 2023-12-30 08:43 | MHC.CM.PN ---
Addendum entered by Marija Tavarez RN 12/30/23 09:10: [facility] nurse requesting that rx be sent to [facility]. Surg PA & RN aware. Original Note: EMR reviewed. Patient medically cleared to return to [facility]. No additional services. BLS scheduled for 929. RN aware. IMM delivered.
--- NOTE | 2023-12-30 09:17 | HO.PM.IMPN ---
Subjective Subjective Date of Service: 12/30/23 Interval History: seen and evaluated BP runs soft , drinking plenty of fluids and going all the time to the bathroom tolerating diet no overnight events Review of Systems Review of Systems: Yes all other systems are reviewed and are negative Physical Exam Vital Signs: Vital Signs: Last Vital Signs Temp 97.2 F 12/30/23 08:00 Pulse 73 12/30/23 08:00 Resp 18 12/30/23 08:00 BP 118/58 L 12/30/23 08:00 Pulse Ox 93 12/30/23 08:00 O2 Del Method Room Air 12/30/23 08:00 O2 Flow Rate 2.5 12/28/23 03:34 BMI result Body Mass Index 31.6 Const: Other: Constitutional : Awake, interactive, not in distress Neck : Normal inspection, Supple Cardiovascular : RRR, no JVP, no lower extremity edema Respiratory : good bilateral air entry, no crackles, wheezes or rhonchi Gastrointestinal: soft, lax, Normal bowel sounds, no tenderness Skin : Warm, Dry Neurological : Alert & oriented x3, No focal deficit Objective Data Active Medications Acetaminophen (Acetaminophen 325 Mg Tablet) 650 mg PO Q6H PRN PRN Reason: fever, pain Albuterol Sulfate (Albuterol Sulfate 90 Mcg 8 Gm Inhaler) 2 puff INHALE Q4H PRN PRN Reason: cough or wheezing Albuterol/Ipratropium (Albuterol/Iprat 2.5/0.5mg 3 Ml Ampul.Neb) 3 ml INHALE Q4H PRN PRN Reason: Shortness of Breath Calcium Carbonate (Calcium Carbonate 750 Mg Tab.Chew) 750 mg PO Q4H PRN PRN Reason: Heartburn Fluticasone/Vilanterol (Fluticasone/Vilanterol 200/25 Blst.W.Dev) 1 puff INHALE DAILY [facility] Last Admin: 12/29/23 09:50 Dose: Not Given Documented By: MARYAM Non-Admin Reason: not given by respiratory Guaifenesin/Dextromethorphan (Guaifenesin Dm 100/10/5 Ml 5 Ml Syrup) 10 ml PO DAILY PRN PRN Reason: Cough Hydroxyzine HCl (Hydroxyzine Hcl 10 Mg Tablet) 10 mg PO BID [facility] Last Admin: 12/30/23 08:40 Dose: 10 mg Documented By: MARQUEZ Magnesium Hydroxide (Milk Of Magnesia 30 Ml Oral.Susp) 30 ml PO DAILY PRN PRN Reason: Constipation Melatonin (Melatonin 3 Mg Tablet) 6 mg PO BEDTIME PRN PRN Reason: Insomnia Last Admin: 12/27/23 20:43 Dose: 6 mg Documented By: GIOVANNA Morphine Sulfate (Morphine Sulfate 4 Mg/Ml Cartridge) 4 mg IVPUSH Q4H PRN; Protocol PRN Reason: Pain, Severe (Pain Scale 7-10) Last Admin: 12/27/23 05:40 Dose: 4 mg Documented By: GIOVANNA Multivitamins/Vitamin C (Multivitamin Tablet) 1 tab PO DAILY [facility] Last Admin: 12/30/23 08:40 Dose: 1 tab Documented By: MARQUEZ Omeprazole (Omeprazole 20 Mg Capsule.Dr) 20 mg PO DAILY PRN PRN Reason: Acid Reflux Ondansetron HCl (Ondansetron Hcl 4 Mg/2 Ml Vial) 4 mg IVPUSH QID PRN PRN Reason: Nausea Oxycodone HCl (Oxycodone Hcl Immed Release 5 Mg Tablet) 5 mg PO Q4H PRN PRN Reason: Pain, Moderate(Pain Scale 4-6) Last Admin: 12/30/23 09:14 Dose: 5 mg Documented By: KENDRICK Sodium Chloride (0.9 % Sodium Chloride Flush 3 Ml Syringe) [facility] Last Admin: 12/30/23 08:41 Dose: 3 ml Documented By: MARQUEZ Spironolactone (Spironolactone 25 Mg Tablet) 25 mg PO DAILY [facility]; Protocol Last Admin: 12/30/23 08:40 Dose: 25 mg Documented By: MARQUEZ Torsemide (Torsemide 20 Mg Tablet) 40 mg PO DAILY [facility]; Protocol Last Admin: 12/30/23 08:40 Dose: 40 mg Documented By: MARQUEZ Labs 12/28/23 05:36 12/28/23 05:36 Microbiology Microbiology Results: Microbiology 12/26/23 13:41 Blood Culture - Final Blood - Venous Coag negative Staphylococcus Assessment and Plan (1) Diastolic CHF: Status: Acute Plan Patient is a 78-year-old female with a PMH significant for HTN, CHF, COPD, pulmonary hypertension, VIVIANA, asthma, RA, CAD with [place] s/p stenting, and esophageal stenosis s/p dilations who presented to the ED from [facility] complaining of RUQ abdominal pain since this morning. Workup in the ED showed elevated LFTs and ultrasound showed cholelithiasis with positive Ramey's sign. Patient was admitted to general surgery services for management of acute cholecystitis with likely cholecystectomy in the morning. Hospitalist consult for pre-op risk assessment. CHF, Unspecified, not in acute exacerabtion restart Torsemide 40 and Spironolactone 25 mg at lower doses on discharge. to follow with PCP after discharge. VIVIANA On 2L NC at night Thank you for allowing us to participate in the care of this patient. Will continue following along with you for now. Quality Stroke Does the patient have a stroke diagnosis?: No VTE Prior VTE?: No VTE Risk Level:: Surgical - moderate VTE Device Contraindication: N/A - Device Ordered VTE Drug Contraindication: Treatment Not Indicated
--- NOTE | 2023-12-30 09:43 | PM.DS ---
DS: Providers Provider Date of Service: 12/30/23 Date of admission: 12/26/23 16:14 Date of discharge: 12/30/23 Primary care physician: Joe Smith MD Attending physician on admission: Wilfrido Greenwood Consults: 12/26/23 16:17 Consult to Hospitalist Routine Comment: Consulting Provider: Hospitalist Reason For Exam: acute cholecystitis, preop risk evaluation Attending physician on discharge: Justice Cowart DS: Diagnosis Discharge Diagnosis (1) Diastolic CHF: Status: Acute DS: Summary Hospital Course Hospital Course: HPI AT ADMISSION: Radha Johns is a 78 year old female presenting with complaints of abdominal pain in the right upper quadrant starting this morning. Her appetite has been poor and diet restricted prior to this and she had prior visits to the ED for similar complaints. She was diagnosed with symptomatic cholelithaisis and was due to see a surgeon next week. Workup today revealed a slight bump in her LFTs and ultrasound confirms stones within the gallbladder without wall thickening or pericholecystic fluid. HOSPITAL COURSE: She is admitted to the surgical service for management of the acute cholecystitis. It was recommended to proceed with lap or possible open cholecystectomy. She was started on IV zosyn. Hospitalist consult was obtained for pre op evaluation. On 12/27/23, a laparoscopic cholecystectomy was performed by Dr. Cowart without complication. The patient tolerated the procedure well. She had an uncomplicated recovery course. On POD #1, she was tolerating a solid. Her pain was well controlled. She was ambulated. Her abdomen was benign with clean incisions. Her BP was soft post operatively and therefore torsemide and spironolactone were held. These were resumed at lower doses and can continue Torsemide 40 and Spironolactone 25 mg on discharge with follow up with PCP after discharge regarding further management. Her discharge was held until her LTC facility accepted her back on 12/30/23. She was transferred to back to [facility] on 12/30/23 in stable condition. She can follow up in the office in 1 week. Status at Discharge Overall status at discharge: patient is progressing back to baseline Time Attestation Discharge Coordination Time (in mins): 40 Quality: Safe Use of Opioids Does Pt have an Active Cancer Diagnosis on the Problem List?: No Quality: Stroke Does the patient have a stroke diagnosis?: No Physical Exam Vital Signs: Vital Signs: Last Vital Signs Temp 97.2 F 12/30/23 08:00 Pulse 73 12/30/23 08:00 Resp 18 12/30/23 08:00 BP 118/58 L 12/30/23 08:00 Pulse Ox 93 12/30/23 08:00 O2 Del Method Room Air 12/30/23 08:00 O2 Flow Rate 2.5 12/28/23 03:34 BMI result Body Mass Index 31.6 Const: General: comfortable, no acute distress and alert Resp: Effort & Inspection: normal respiratory effort GI: Inspection: No distended and Yes incision (clean, small amt of surrounding ecchymosis, steris intact) Palpation (GI): Soft to palpation, Tenderness to palpation present (GI) (mild incisional) and no guarding Skin: General skin exam: no rashes or lesions noted and no jaundice DS: Data Data Completed and Pending Pending studies at discharge: Pending at discharge 12/27/23 17:15 Surgical [PTH] Routine Labs on day of discharge: Preliminary micro results at discharge 12/26/23 13:28 Blood Culture - Preliminary Blood - Venous No growth after 48 hours. Discharge Plan Discharge Anticipated Discharge Date/Time: 12/28/23 14:36 Patient Disposition: Home, Self-Care Discharge Diagnosis: acute cholecystitis Referrals: Joe Smith MD [Primary Care Provider] - 1 Week Justice Cowart MD [Physician] - 1 Week Discharge Medications: New oxycodone 5 mg tablet 5 mg PO Q4H PRN (Reason: pain (scale score 7-10)) Qty: 20 0RF Rx Instructions: Partial Fill upon patient request. docusate sodium [Colace] 100 mg capsule 100 mg PO BID Qty: 30 0RF Continued naproxen 375 mg tablet 375 mg PO BIDWM ipratropium-albuterol 0.5 mg-3 mg(2.5 mg base)/3 mL solution for nebulization 3 ml inhalation Q4H PRN (Reason: SOB) dextromethorphan-guaifenesin 10-100 mg/5 mL syrup 10 ml PO DAILY PRN (Reason: Cough) acetaminophen 500 mg Tablet 1,000 mg PO Q6H PRN (Reason: Pain) magnesium hydroxide [Milk of Magnesia] 400 mg/5 mL Suspension 30 ml PO DAILY PRN (Reason: Constipation) esomeprazole magnesium 40 mg capsule,delayed release(DR/EC) 40 mg PO DAILY PRN (Reason: Acid Reflux) fluticasone propion-salmeterol 500-50 mcg/dose blister with device 1 inh INHALATION BID albuterol sulfate 90 mcg/actuation HFA aerosol inhaler 2 inh inhalation Q4H PRN (Reason: cough or wheezing) hydroxyzine HCl 10 mg tablet 10 mg PO BID multivitamin with folic acid [Tab-A-Anitha] 400 mcg tablet 1 tab PO DAILY Changed torsemide 20 mg tablet 40 mg PO DAILY Qty: 60 0RF spironolactone 50 mg tablet 25 mg PO DAILY Qty: 30 0RF Discharge Orders: Discharge Order (Routine); Ordered 12/30/23 Ordered By: Deneen Sam Diet: Advance to usual diet Activity on Discharge: No heavy lifting Stand Alone Forms: Patient Portal Discharge page Print Language: Mosotho Activity Restrictions/Additional Instructions: Apply an ice pack for short intervals (20 minutes on, followed by at least 20 minutes off) for the first 2 days. Do not apply heat. Do not use creams, lotions, or topical antibiotics. These can cause infection or allergic reaction. Ok to shower 48 hours after your surgery. Remove dressings in 2 days and replace as needed. You have steri strips (small white cloth strips) covering your incision- these will fall off ~1 week. Follow up in office with Dr. Cowart in 1 week. ([phone]) No heavy lifting (>10lbs) or strenuous activity! Call Your Doctor If: -Your temperature exceeds 101.5? F -You experience excessive pain or swelling -You have an unexpected reaction to medication -You have excessive bleeding -You experience continued vomiting/nausea -Your incision begins to separate -Your incision shows signs of infection such as increased redness, swelling, excessive pain, drainage (light blood or clear fluid is normal) or heat Care Plan Goals: Decrease Spironolactone to 25 mg daily Decrease Torsemide to 40 mg daily MOnitor weight at home and report to PCP in 1-2 weeks for further adjustment Return to baseline health and resume normal activities following recovery period. Health Concerns: acute cholecystitis Plan of Treatment: s/p laparoscopic cholecystitis f/u in office in 1 week Assessment: doing well post op Discharge Date/Time: 12/30/23 09:42
--- NOTE | 2023-12-30 09:45 | P.PNGS_ITS ---
Subjective Subjective Date of Service: 12/30/23 Interval history: No new complaints. Pain minimal. Tolerating solid diet. Feels ready for discharge. Physical Exam 2 Vital Signs: Vital Signs: Last Vital Signs Temp 97.2 F 12/30/23 08:00 Pulse 73 12/30/23 08:00 Resp 18 12/30/23 08:00 BP 118/58 L 12/30/23 08:00 Pulse Ox 93 12/30/23 08:00 O2 Del Method Room Air 12/30/23 08:00 O2 Flow Rate 2.5 12/28/23 03:34 BMI result Body Mass Index 31.6 Const: General: comfortable, no acute distress and alert Resp: Effort & Inspection: normal respiratory effort GI: Inspection: No distended and Yes incision (clean) Palpation (GI): Soft to palpation, Tenderness to palpation present (GI) (mild incisional) and no guarding Skin: General skin exam: no rashes or lesions noted Objective Data Labs 12/28/23 05:36 12/28/23 05:36 Microbiology Microbiology Results: Microbiology 12/26/23 13:41 Blood Culture - Final Blood - Venous Coag negative Staphylococcus Procedures Date of Service Date of Service: 12/30/23 Progress Note: A&P Assessment and plan (1) Acute cholecystitis: Status: Acute (2) Status post laparoscopic cholecystectomy: Status: Acute Plan Doing well post op. Tolerating solid diet, pain well controlled. Abd benign. Ready for transfer back to facility. F/u in office in 1 week. F/u with PCP regarding BP. Time Spent With Patient Time: Total time managing care of this patient today ____ minutes. Quality Stroke Does the patient have a stroke diagnosis?: No VTE Prior VTE?: No VTE Risk Level:: Surgical - moderate VTE Device Contraindication: N/A - Device Ordered VTE Drug Contraindication: Treatment Not Indicated
== END 2023-12-30 09:42 | disposition home or self-care (01) | DRG 418 ==
LOC: HO.ED 15:38 → HO.EDOVER 16:25 → HO.S3 17:12
PROVIDERS: Student in an Organized Health Care Education/Training Program; Surgery; Admitting Provider Surgery; Emergency Provider Emergency Medicine; PCP Internal Medicine; Visit Provider Surgery
PROC: 0FT44ZZ Resection of Gallbladder, Percutaneous Endoscopic Approach (ICD-10-PCS; CPT 47562; principal; 2023-12-27 14:00)
DX: K80.00 Calculus of gallbladder with acute cholecystitis without obstruction (principal); I50.32 Chronic diastolic (congestive) heart failure; J44.9 Chronic obstructive pulmonary disease, unspecified; K82.8 Other specified diseases of gallbladder; I11.0 Hypertensive heart disease with heart failure; M06.9 Rheumatoid arthritis, unspecified; G47.33 Obstructive sleep apnea (adult) (pediatric); I27.20 Pulmonary hypertension, unspecified; I25.10 Atherosclerotic heart disease of native coronary artery without angina pectoris; Z95.5 Presence of coronary angioplasty implant and graft; I25.2 Old myocardial infarction; Z79.51 Long term (current) use of inhaled steroids; Z79.899 Other long term (current) drug therapy
CPT/HCPCS: 36415; 76705; 80048; 80076; 83605; 83690; 83735; 83880; 84484; 85025; 85027; 87040; 87147; 87205; 88304; 93005; 99285; J0131; J1100; J1170; J1885; J2270; J2405; J2543; J2704; J2795; J3010; J7120

== ENCOUNTER → 2023-12-26 13:10 | Outpatient (BNV) | payer OTHER, SELFPAY | PROVIDERS: Admitting Provider Surgery; Emergency Provider Emergency Medicine; PCP Internal Medicine; Visit Provider Internal Medicine Cardiovascular Disease | DX: I49.9 Cardiac arrhythmia, unspecified (principal) | CPT/HCPCS: 93010 ==

== ENCOUNTER → 2023-12-26 16:14 | Outpatient (BNV) | payer OTHER, SELFPAY | PROVIDERS: Admitting Provider Surgery; Emergency Provider Emergency Medicine; PCP Internal Medicine; Visit Provider Surgery | DX: K81.0 Acute cholecystitis (principal); Z90.49 Acquired absence of other specified parts of digestive tract; I50.30 Unspecified diastolic (congestive) heart failure | CPT/HCPCS: 47562; 99024; 99222 ==

== ENCOUNTER → 2023-12-26 16:14 | Outpatient (BNV) | payer OTHER, SELFPAY | PROVIDERS: Admitting Provider Surgery; Emergency Provider Emergency Medicine; PCP Internal Medicine; Visit Provider Student in an Organized Health Care Education/Training Program | DX: I50.30 Unspecified diastolic (congestive) heart failure (principal) | CPT/HCPCS: 99222; 99231 ==

== ENCOUNTER 2024-01-07 09:22 | Outpatient (AMB) | payer OTHER, SELFPAY ==
--- NOTE | 2024-01-07 09:31 | MHC.OFFVIS ---
Intake Visit Reasons: s/p cholecystectomy Intake Note: Patient here s/p lap jalen. Reports incisions healing well. Patient c/o: no concerns. SX: 12-27-2023. Analytics Director Required: No Accompanied by: Self / Same As Patient Allergies adalimumab [From Humira] Allergy (Verified 01/07/24 09:31) Palpitations etanercept [From Enbrel] Allergy (Verified 01/07/24 09:31) Palpitations HPI Comments Details: Patient presents for follow-up. She is doing very well. She has tolerating a diet. She is having regular bowel habits although she did have a bout of constipation. She has minimal incisional discomfort. She is slowly but steadily increasing her activity level. [facility] Medical History Paroxysmal A-fib Lymphedema Rheumatoid arthritis Diastolic CHF Pulmonary HTN COPD (chronic obstructive pulmonary disease) HTN (hypertension) Surgical History History of laparoscopic cholecystectomy (12/27/23) Social History Household Members: None Patient Tobacco Use Status: Never used Tobacco Second Hand Smoke Exposure: No Advance Directives Date on File: 12/26/23 service: No Physical Exam Eyes Other: Anicteric GI Other: Abdomen is soft and benign. All wounds clean dry and intact. Some resolving ecchymosis at the umbilical site Assessment & Plan Assessment & Plan (1) Status post laparoscopic cholecystectomy: Code(s): Z90.49 - Acquired absence of other specified parts of digestive tract Category: Surgical (2) Postop check: Code(s): Z09 - Encounter for follow-up examination after completed treatment for conditions other than malignant neoplasm Category: Surgical Plan Patient and [facility] facility have been given local instructions, the patient otherwise follow-up p.r.n.. All questions answered. Medications: Discontinued oxycodone Partial Fill upon patient request. Discontinued Reason: Patient no longer taking 5 mg PO Q4H PRN 20 tabs 0RF pain (scale score 7-10) Coding Level of Care Code Global (53671) Diagnoses Status post laparoscopic cholecystectomy Z90.49 Postop check Z09
== END 2024-01-07 09:34 | disposition home or self-care (01) ==
PROVIDERS: PCP Internal Medicine; Visit Provider Surgery
DX: Z90.49 Acquired absence of other specified parts of digestive tract (principal); Z09 Encounter for follow-up examination after completed treatment for conditions other than malignant neoplasm
CPT/HCPCS: 99024

== ENCOUNTER → 2024-01-07 09:22 | Outpatient (BNVA) | payer OTHER, SELFPAY | PROVIDERS: PCP Internal Medicine; Visit Provider Surgery | DX: Z09 Encounter for follow-up examination after completed treatment for conditions other than malignant neoplasm (principal); Z90.49 Acquired absence of other specified parts of digestive tract | CPT/HCPCS: 99212 ==

== ENCOUNTER 2025-01-08 16:18 | Emergency (ER) | payer OTHER, SELFPAY ==
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
[2025-01-08 16:26] VITALS: BP 116/65; BP 172/54; PULSE 81; PULSE 88; RESP 16; TEMP 36.7; O2SAT 97; O2SAT 98; BMI 34.8
[2025-01-08 16:34] VITALS: BP 116/65; PULSE 81; RESP 16; TEMP 36.7; O2SAT 98
[2025-01-08 16:45] LABS: MANUAL DIFF FLAG NO
[2025-01-08 16:47] LABS: Hematocrit 33.7 % (37.0-47.0); Hemoglobin 12.2 g/dl (12.0-16.0); Imm Gran Abs Auto 0.02 X10*3/uL (0.00-0.03); Imm Gran Pct Auto 0.3 % (0.0-0.4); Lymphocytes Absolute Auto 1.9 X10*3/uL (1.2-4.9); Mean Corpuscular HGB Conc 36.2 g/dl (31.0-35.0); Mean Corpuscular Hemoglobin 30.8 pg (27.0-33.0); Mean Corpuscular Volume 85.1 fL (80.0-98.0); NRBC Abs Auto 0.000 X10*3/uL (0.0-0.012); NRBC Pct Auto 0.0 /100WBC (0.0-0.2); Platelet Count 180 X10*3/uL (160-400); Red Blood Count 3.96 X10*6/uL (4.20-5.50); White Blood Count 7.0 X10*3/uL (4.8-10.8)
[2025-01-08 17:01] LABS: Anion Gap 15 (12-20); Blood Urea Nitrogen 31 mg/dL (9-16); Calcium 9.2 mg/dL (8.4-10.2); Carbon Dioxide 25 mmol/L (22-29); Chloride 102 mmol/L (96-108); Creatinine Clr Calc Pharmacy 38.3; Estimated Glomerular Filt Rate 48; Magnesium 2.1 mg/dL (1.6-2.6); Potassium 3.2 mmol/L (3.3-5.1); Sodium 139 mmol/L (135-145)
[2025-01-08 17:58] LABS: Appearance Urine Clear; Glucose Urine UA Negative (Negative); PH 7.0 (5.0-9.0); Specific Gravity - Urine <= 1.005 (1.005-1.025)
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
[2025-01-08 18:37] VITALS: BP 110/56; PULSE 68; RESP 17; TEMP 36.8; O2SAT 99
[2025-01-08] MEDS: Potassium Chloride ER 20 MEQ TAB.ER.PRT 40 MEQ PO (18:37)
--- NOTE | 2025-01-08 18:49 | PC.NURSE ---
Patient stated My friend Jeana is coming to pick me up Patient needs to be seen by care team. Attempted to contact Jeana left voicemail to call back
[2025-01-08 19:02] LABS: Cannabinoid Screen Urine Not Detected (Not Detect)
[2025-01-08 19:07] LABS: Acetaminophen LAB < 3 mcg/mL (<30); Salicylate < 5.0 mg/dL (15-30)
--- NOTE | 2025-01-08 19:14 | PC.NURSE ---
patient changed over into ligature free attire d/t pending crisis eval. belongings placed in ashly port shelf #3. belongings list created/placed in pt's chart. albuterol inhaler noted to be in patient's dress pocket. inhaler obtained/brought to pharmacy. inventory count located in chart.
[2025-01-08 20:05] VITALS: BP 105/49; PULSE 66; TEMP 36.8; O2SAT 98
[2025-01-08 22:21] VITALS: BP 110/50; PULSE 65; TEMP 36.4; O2SAT 97
--- NOTE | 2025-01-08 23:08 | PC.NURSE ---
verified pts home medications with pt medication record sent by facility.
[2025-01-09] VITALS (7 sets, daily range): BP systolic 95–107; BP diastolic 45–55; PULSE 55–65; RESP 15–18; TEMP 36.4–36.8; O2SAT 95–98
--- NOTE | 2025-01-09 10:31 | PHA.MEDREC ---
Pharmacy Consult ? Medication Reconciliation Pharmacy has completed the medication reconciliation. Reviewed med rec done by nursing using list from snf. Found several errors. Provider notified and incident report will be filed.
[2025-01-09] MEDS: Albuterol/Iprat 2.5/0.5MG 3 ML AMPUL.NEB INHALE (21:23)
[2025-01-10] VITALS (8 sets, daily range): BP systolic 97–107; BP diastolic 38–54; PULSE 60–104; RESP 12–18; TEMP 36.6–37.3; O2SAT 96–99
[2025-01-10] MEDS: Albuterol/Iprat 2.5/0.5MG 3 ML AMPUL.NEB INHALE ×2 (07:38→20:49)
[2025-01-10] MEDS: Fluticasone/Vilanterol 200/25 BLST.W.DEV 1 PUFF INHALE (11:02)
--- NOTE | 2025-01-10 11:51 | PC.NURSE ---
pt calm, pleasant. no behavioral issues. ate breakfast well. uses call huerta appropriately, walks to the bathroom with cane and stand by for safety. walks well. agreeable to plan.
--- NOTE | 2025-01-10 12:35 | PC.NURSE ---
pt reported to the RN that she was having burning with urination. checked UA from 2 days ago and no signs of infection. new order placed and specimine sent to lab
[2025-01-10 12:39] LABS: Appearance Urine Clear; Glucose Urine UA Negative (Negative); PH 7.0 (5.0-9.0); Specific Gravity - Urine <= 1.005 (1.005-1.025)
--- NOTE | 2025-01-10 16:33 | PC.NURSE ---
This RN spoke with Paz from [facility], she is the site safety representative, update given about plan of care, and patients behavior while here. Paz cell # is [phone], she stated that staff can call her at anytime with questions or to discuss plan of care changes
--- NOTE | 2025-01-10 19:11 | PC.NURSE ---
assumed care of pt at this time. pt awake and alert doing a crossword puzzle in hospital bed. pt in no notable distress at this time. sitter in place. call huerta within reach, plan of care ongoing.
[2025-01-10] MEDS: guaiFENesin 100 MG/5 ML 5 ML LIQUID 10 ML PO (20:50)
[2025-01-10] MEDS: Albuterol Sulfate 90 MCG 8 GM INHALER 2 PUFF INHALE (22:32)
[2025-01-11 06:00] VITALS: BP 102/54; PULSE 72; RESP 16; TEMP 36.6; O2SAT 95
[2025-01-11] MEDS: Fluticasone/Vilanterol 200/25 BLST.W.DEV 1 PUFF INHALE (08:18)
[2025-01-11] MEDS: Albuterol/Iprat 2.5/0.5MG 3 ML AMPUL.NEB INHALE (08:18)
[2025-01-11 08:19] VITALS: PULSE 65; RESP 16; O2SAT 98
[2025-01-11 10:12] VITALS: BP 102/54
[2025-01-11 10:15] VITALS: BP 102/54
[2025-01-11] MEDS: Albuterol Sulfate 90 MCG 8 GM INHALER 2 PUFF INHALE (10:19)
--- NOTE | 2025-01-11 11:53 | ECG_ITS ---
Test Reason : check qtc Blood Pressure : */* mmHG Vent. Rate : 80 BPM Atrial Rate : 80 BPM P-R Int : 136 ms QRS Dur : 66 ms QT Int : 382 ms P-R-T Axes : 22 -33 12 degrees QTcB Int : 440 ms Sinus rhythm with occasional Premature ventricular complexes Left axis deviation Abnormal ECG When compared with ECG of 26-Dec-2023 13:37, No significant changes seen Referred By: Emmy Orozco Electronically Signed By: AGATHA PEREZ
--- NOTE | 2025-01-11 13:42 | PC.NURSE ---
Pt ambulated to and from BR twice on my shift so far, Tolerating po bkfst and lunch well. A&O X4 VSS NAD No complaints.
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
[2025-01-11 16:04] VITALS: BP 111/56; PULSE 84; RESP 18; TEMP 36.6; O2SAT 97
--- NOTE | 2025-01-11 16:23 | MHC.CARE ---
Patient reassessed by the CARE Team, she does not require an inpatient psychiatric admission at this time. Facility aware that she is returning and in agreement with plan.
[2025-01-11 18:10] VITALS: BP 111/56; PULSE 84; RESP 18; TEMP 36.6; O2SAT 97
--- NOTE | 2025-01-14 12:06 | MHC.CM.ED ---
Received telephone call from patient's [id number], Jeana. Jeana states she brought patient's glasses to her while patient was here and glasses did not return home with patient. Incident report completed.
== END 2025-01-11 18:11 | disposition home or self-care (01) ==
PROVIDERS: Physician Assistant Medical; Emergency Provider Emergency Medicine
DX: R45.1 Restlessness and agitation (principal); I11.0 Hypertensive heart disease with heart failure; I50.30 Unspecified diastolic (congestive) heart failure; J44.9 Chronic obstructive pulmonary disease, unspecified; I48.0 Paroxysmal atrial fibrillation; Z90.49 Acquired absence of other specified parts of digestive tract; Z79.899 Other long term (current) drug therapy
CPT/HCPCS: 36415; 80048; 80143; 80179; 80307; 81001; 81003; 83735; 85025; 93005; 94640; 99285; S9485

== ENCOUNTER → 2025-01-11 11:53 | Outpatient (BNV) | payer OTHER, SELFPAY | PROVIDERS: Emergency Provider Emergency Medicine; Visit Provider Internal Medicine | DX: R94.31 Abnormal electrocardiogram [ECG] [EKG] (principal) | CPT/HCPCS: 93010 ==

== ENCOUNTER 2025-05-10 11:38 | Inpatient (IN) | payer OTHER, SELFPAY ==
[2025-05-10] VITALS (11 sets, daily range): BP systolic 80–136; BP diastolic 41–82; PULSE 78–120; RESP 18–26; TEMP 36.5–36.7; O2SAT 97–100; BMI 32.5; BMI 31.2
--- NOTE | 2025-05-10 | ECG_ITS ---
Test Reason : rubble placer Blood Pressure : */* mmHG Vent. Rate : 79 BPM Atrial Rate : 79 BPM P-R Int : 146 ms QRS Dur : 68 ms QT Int : 394 ms P-R-T Axes : 54 -41 27 degrees QTcB Int : 451 ms Normal sinus rhythm Left axis deviation Abnormal ECG When compared with ECG of 10-May-2025 12:01, No significant change was found Referred By: Luisa Cross Electronically Signed By: ABHILASH GARCIA MD
--- NOTE | ~2025-05-10 | XR_ITS ---
CLINICAL HISTORY: Shorntess of breath 1 view chest x-ray Comparison: CR/SR - XR CHEST 1 VIEW - 05/10/25 12:22 EST Findings: The lungs are clear. Heart size is normal. No acute fracture. IMPRESSION: No acute cardiopulmonary abnormality. This document has been electronically signed by: Preet Rodriguez on 05/13/2025 05:43:42
--- NOTE | ~2025-05-10 | XR_ITS ---
EXAMINATION: XR HIP, RIGHT CLINICAL INFORMATION: Severe pain, R O fracture COMPARISON: None available. TECHNIQUE: Two views of the right hip. FINDINGS: Mild-moderate right hip arthritis. No visible acute fracture or dislocation. Mild-moderate left hip arthritis. There is bowel gas/stool projected over the pelvis, including the right pubic rami and symphysis pubis, limiting evaluation. In the nonobscured bones, no acute fracture is otherwise identified. Bilateral SI joint arthritis. There is tubing projected over the left femur, inferior to the pelvis. XR/XR hip RT w PEL1V IMPRESSION: * Mild-moderate bilateral hip arthritis. No evidence of acute fracture or dislocation. * Additional findings as above. Electronically signed by: Brent Howell MD 05/12/2025 09:12 AM [facility]
--- NOTE | ~2025-05-10 | XR_ITS ---
EXAMINATION: XR CHEST CLINICAL INFORMATION: SOB COMPARISON: None available. TECHNIQUE: Frontal view of the chest was obtained. FINDINGS: No significant abnormality is noted involving the heart, lungs, mediastinum, bony thorax or soft tissues. XR/XR chest 1V IMPRESSION: No acute disease. Electronically signed by: Eliseo Patel MD 05/10/2025 12:31 PM [facility]
--- NOTE | 2025-05-10 11:52 | ED.GENADULT ---
HPI - General Adult General Chief complaint: GI Bleed Stated complaint: BLOOD/BLACK STOOL,NO ABD [facility] PER EMS History of Present Illness ED Provider: Dr. Suh HPI narrative: 79 y/o F patient; PMH hypothyroidism, COPD, HTN, pulmonary HTN, rheumatoid arthritis, obesity, CHF, atrial fibrillation, cognitive impairment; presents via EMS from home with report of recent dark stools. The patient otherwise denies: fever or chills, cough/congestion, nausea/vomiting, abdominal pain, chest pain. She does report recent increase in shortness of breath with exertion. Related Data Home Medications ?Medication ?Instructions ?Recorded ?Confirmed acetaminophen 500 mg tablet 1,000 mg PO Q6H PRN Pain 12/26/23 01/08/25 albuterol sulfate 90 mcg/actuation 2 inh inhalation Q4H PRN cough or 12/26/23 01/08/25 aerosol inhaler wheezing esomeprazole magnesium 40 mg 40 mg PO DAILY PRN Acid Reflux 12/26/23 01/08/25 capsule,delayed release hydroxyzine HCl 10 mg tablet 10 mg PO BID Anxiety 12/26/23 01/08/25 ipratropium 0.5 mg-albuterol 3 mg 3 ml inhalation Q4H PRN SOB 12/26/23 01/08/25 (2.5 mg base)/3 mL nebulization soln fluticasone propionate 50 2 spray intranasal DAILY 01/09/25 01/09/25 mcg/actuation nasal spray,suspension guaifenesin 100 mg/5 mL oral liquid 200 mg PO DAILY PRN Cough 01/09/25 01/09/25 ipratropium 0.5 mg-albuterol 3 mg 3 ml inhalation BID 01/09/25 01/09/25 (2.5 mg base)/3 mL nebulization soln sertraline 50 mg tablet 50 mg PO DAILY 01/09/25 01/09/25 spironolactone 50 mg tablet 50 mg PO DAILY 01/09/25 01/09/25 torsemide 20 mg tablet 100 mg PO DAILY 01/09/25 01/09/25 apixaban 5 mg tablet (Eliquis) 5 mg PO BID 05/10/25 diltiazem HCl 180 mg 180 mg PO DAILY 05/10/25 capsule,extended release 24 hr fluticasone 500 mcg-salmeterol 50 1 inh inhalation BID 05/10/25 mcg/dose blistr powdr for inhalation (Wixela Inhub) multivitamin with folic acid 400 1 tab PO DAILY 05/10/25 mcg tablet (Daily-Anitha (with folic acid)) Previous Rx's ?Medication ?Instructions ?Recorded docusate sodium 100 mg capsule 100 mg PO BID #30 caps 12/30/23 (Colace) Allergies Allergy/AdvReac Type Severity Reaction Status Date / Time adalimumab (From Humira) Allergy Palpitation Verified 05/10/25 11:49 s etanercept (From Enbrel) Allergy Palpitation Verified 05/10/25 11:49 s Review of Systems Review of Systems: Yes all other systems are reviewed and are negative PMFSH Past Medical History Attestation statement: The following information was validated with the patient. Source: old records reviewed Medical History Paroxysmal A-fib Lymphedema Rheumatoid arthritis Diastolic CHF Pulmonary HTN COPD (chronic obstructive pulmonary disease) HTN (hypertension) Surgical History History of laparoscopic cholecystectomy (12/27/23) Social History Social History Household Members: None Patient Tobacco Use Status: Never used Tobacco Smoked in Last 30 Days: No Second Hand Smoke Exposure: No Use of substances other than those prescribed or required for medical reasons: No Advance Directives: Yes Advance Directives on File: Yes Advance Directives Date on File: 12/26/23 service: No Physical Exam ED Vital Signs: Vital Signs - 24 hr 05/10/25 11:42 05/10/25 11:59 05/10/25 12:17 Temperature 97.9 F Pulse Rate 84 85 78 Respiratory Rate 19 25 H 26 H Blood Pressure 85/41 L 91/46 L 80/47 L Pulse Oximetry 100 100 99 Oxygen Delivery Method Room Air Room Air Room Air 05/10/25 12:33 05/10/25 12:49 Temperature Pulse Rate 90 80 Respiratory Rate 20 24 H Blood Pressure 100/54 L 118/52 L Pulse Oximetry 99 Oxygen Delivery Method Room Air BMI result Body Mass Index 32.5 Patient is afebrile, hypotensive, tachycardic in an irregularly irregular rhythm. Const Other: Pale General: cooperative and no acute distress HENMT Head: Yes normal to inspection and Yes atraumatic Eyes Conjunctivae: other (Pale conjunctiva) Pupils: Equal, round and reactive pupils present EOM: EOMs intact bilaterally Neck Neck: Yes normal visual inspection, Yes supple and No tender Chest Chest palpation & inspection: normal inspection of the chest and normal palpation of entire chest wall Resp Effort & Inspection: normal respiratory effort, able to speak in complete sentences and no cough Auscultation: clear to auscultation bilaterally Cardio Other: 2+ bilateral lower extremity non-pitting edema Rate: regular rate Rhythm: regular rhythm Peripheral pulses: Peripheral pulses 2+ throughout GI Inspection: No Abdominal wall edema and No distended Palpation (GI): Soft to palpation, not firm, nontender, no guarding and not rigid Percussion: Yes normal to percussion Back/Spine/Pelvis Back: No back tenderness Neuro Cranial nerves: Yes Equal, round and reactive pupils present Course Course Course Narrative: Requested to see patient immediately due to high risk of life threatening deterioration in condition. Patient is hypotensive. She is also quite pale. She denies any complaints. Concern for hemorrhagic shock. Providing 1L IVF. Ordered for labs, EKG. Labs reviewed. Hgb 10.2, this is a 2 point drop from 12.2 in 12/2024. LA is 2.2. CXR is unremarkable. Rectal exam performed. Minimal stool in vault. What is present is dark black. Hypotension responsive to IVF. Will likely require GI consultation while admitted. Plan: Admit to medicine Conditon: Stable Medications Administered Discontinued Medications Generic Name Dose Route Start Last Admin Trade Name Biggq PRN Reason Stop Dose Admin Sodium Chloride 1,000 mls @ 999 mls/hr 05/10/25 12:15 05/10/25 13:21 Ns IV 05/10/25 13:15 Infused .Q1H1M ALVARO Infusion Medical Decision Making Lab Data 05/10/25 12:12 05/10/25 12:12 Labs: Lab Results 05/10/25 05/10/25 Range/Units 12:12 12:16 WBC 7.3 (4.8-10.8) X10*3/uL RBC 3.40 L (4.20-5.50) X10*6/uL Hgb 10.2 L (12.0-16.0) g/dl Hct 30.1 L (37.0-47.0) % MCV 88.5 (80.0-98.0) fL MCH 30.0 (27.0-33.0) pg MCHC 33.9 (31.0-35.0) g/dl RDW 12.4 (11.0-16.0) % Plt Count 182 (160-400) X10*3/uL MPV 10.5 (9.4-12.3) fL Immature Gran % (Auto) 0.6 H (0.0-0.4) % Neut % (Auto) 69.8 (45-73) % Lymph % (Auto) 22.5 (20-40) % [place] % (Auto) 5.7 (2-11) % Eos % (Auto) 0.4 (0-4) % Baso % (Auto) 1.0 (0-2) % Lymph # (Auto) 1.6 (1.2-4.9) X10*3/uL [place] # (Auto) 0.4 (0.1-1.2) X10*3/uL Eos # (Auto) 0.0 (0.0-0.4) X10*3/uL Baso # (Auto) 0.1 (0.0-0.2) X10*3/uL Abs Immat Gran (auto) 0.04 H (0.00-0.03) X10*3/uL Absolute Neuts (auto) 5.1 (2.0-8.3) x10*3/uL Absolute Nucleated RBC 0.000 (0.0-0.012) X10*3/uL Nucleated RBC % (auto) 0.0 (0.0-0.2) /100WBC Sodium 138 (135-145) mmol/L Potassium 3.8 (3.3-5.1) mmol/L Chloride 102 (96-108) mmol/L Carbon Dioxide 23 (22-29) mmol/L Anion Gap 17 (12-20) BUN 49 H (9-16) mg/dL Creatinine 1.02 (0.5-1.4) mg/dL Estim Creat Clear Calc 36.7 Estimated GFR 53 Random Glucose 89 (60-115) mg/dL Lactic Acid 2.2 H* (0.5-2.0) mmol/L Calcium 9.5 (8.4-10.2) mg/dL Total Bilirubin 0.3 (0.0-1.0) mg/dL Direct Bilirubin 0.1 (0.0-0.5) mg/dL AST 21 (5-31) U/L ALT 13 (0-31) U/L Alkaline Phosphatase 72 (39-117) U/L Troponin I High Sens < 2.7 (<3.5-17.0) ng/L Total Protein 7.2 (6.5-8.0) g/dL Albumin 4.1 (3.5-5.0) g/dL Lipase 21 (8-78) U/L Blood Type A Negative Antibody Screen NEGATIVE Independent Interpretation I performed an independent interpretation of an: EKG Interpretation: EKG independently interpreted by myself as NSR 77BPM without ischemic changes Radiology Impression Discussion of test interpretation with radiology: I have reviewed the radiologist's reading. Radiologist Impression: EXAMINATION: XR CHEST CLINICAL INFORMATION: SOB COMPARISON: None available. TECHNIQUE: Frontal view of the chest was obtained. FINDINGS: No significant abnormality is noted involving the heart, lungs, mediastinum, bony thorax or soft tissues. XR/XR chest 1V IMPRESSION: No acute disease. Electronically signed by: Eliseo Patel MD 05/10/2025 12:31 PM [facility] Discharge Plan Discharge Clinical Impression: Hemorrhagic shock, Melena Patient Disposition: Admitted As Inpatient
--- NOTE | 2025-05-10 12:01 | ECG_ITS ---
Test Reason : SOB/TACHY Blood Pressure : */* mmHG Vent. Rate : 77 BPM Atrial Rate : 77 BPM P-R Int : 144 ms QRS Dur : 72 ms QT Int : 380 ms P-R-T Axes : 35 -29 26 degrees QTcB Int : 430 ms Normal sinus rhythm Normal ECG When compared with ECG of 11-Jan-2025 11:57, Premature ventricular complexes are no longer Present Referred By: Cuca Suh Electronically Signed By: ABHILASH GARCIA MD
[2025-05-10 12:16] LABS: MANUAL DIFF FLAG NO
[2025-05-10 12:21] LABS: Hematocrit 30.1 % (37.0-47.0); Hemoglobin 10.2 g/dl (12.0-16.0); Imm Gran Abs Auto 0.04 X10*3/uL (0.00-0.03); Imm Gran Pct Auto 0.6 % (0.0-0.4); Lymphocytes Absolute Auto 1.6 X10*3/uL (1.2-4.9); Mean Corpuscular HGB Conc 33.9 g/dl (31.0-35.0); Mean Corpuscular Hemoglobin 30.0 pg (27.0-33.0); Mean Corpuscular Volume 88.5 fL (80.0-98.0); NRBC Abs Auto 0.000 X10*3/uL (0.0-0.012); NRBC Pct Auto 0.0 /100WBC (0.0-0.2); Platelet Count 182 X10*3/uL (160-400); Red Blood Count 3.40 X10*6/uL (4.20-5.50); White Blood Count 7.3 X10*3/uL (4.8-10.8)
[2025-05-10 12:35] LABS: Alanine Aminotransferase 13 U/L (0-31); Albumin Level 4.1 g/dL (3.5-5.0); Alkaline Phosphatase 72 U/L (39-117); Anion Gap 17 (12-20); Aspartate Amino Transferase 21 U/L (5-31); Blood Urea Nitrogen 49 mg/dL (9-16); Calcium 9.5 mg/dL (8.4-10.2); Carbon Dioxide 23 mmol/L (22-29); Chloride 102 mmol/L (96-108); Creatinine Clr Calc Pharmacy 36.7; Estimated Glomerular Filt Rate 53; Lipase 21 U/L (8-78); Potassium 3.8 mmol/L (3.3-5.1); Sodium 138 mmol/L (135-145); Total Protein 7.2 g/dL (6.5-8.0)
[2025-05-10 12:44] LABS: Troponin-I High Sensitivity < 2.7 ng/L (<3.5-17.0)
--- NOTE | 2025-05-10 13:05 | PM.IMHP ---
History of Present Illness Date of Service: 05/10/25 Attending physician on admission: Marian Holcomb Chief Complaint: Dark colored stools Pt is a 79-year-old female with a PMH significant forHTN, CHF, COPD, pulmonary hypertension, VIVIANA, asthma, RA, CAD with IL s/p stenting, and esophageal stenosis s/p dilations?who presents to the ED with?after reporting some black and dark bloody stools earlier this morning. Pt believes that this is due to eating strawberries as food often changes color of her stool. Pt initially seen and evaluated in the ED where she reported that she felt ?great? and had no acute medical complaints. Denied lightheadedness or dizziness. No nausea, vomiting, diarrhea, or abdominal pain. Pt does reports she has a hx of hemorrhoids and often uses hemorrhoidal cream. Denies shortness or breath or difficulty breathing. Of note, rapid response was called in the overflow when pt attempted to transfer herself to a hospital bed. pt became lightheaded, dizzy, and ashen colored. Pt did not syncopized or falls of the floor. Pt was placed back on her bed where she slowly felt better. Pt reports felt lightheaded and dizzy. No chest pain or pressure. We will get repeat labs including EKG, CBC, BNP, and orthostatics. Will bolus pt gently with 500 cc as she has a hx of CHF. Pt will be transferred to telemetry. In the ED pt's vitals were significant for tachypnea of 24 and hypotension as low as 80/47. Labs were significant for bedside stool being positive for occult blood, H&H 10.2/30.1 (previously 12.2/33.7) and lactic acid 2.2. Labs otherwise stable and WNL. CXR showing no acute disease. Pt was treated in the ED with IVF. Pt is admitted to the hospital for treatment and further evaluation of acute blood loss anemia concerning for upper GI bleed. Review of Systems Review of Systems: Yes all other systems are reviewed and are negative [facility] Medical History Paroxysmal A-fib Lymphedema Rheumatoid arthritis Diastolic CHF Pulmonary HTN COPD (chronic obstructive pulmonary disease) HTN (hypertension) Surgical History History of laparoscopic cholecystectomy (12/27/23) Social History Household Members: None Patient Tobacco Use Status: Never used Tobacco Smoked in Last 30 Days: No Second Hand Smoke Exposure: No Use of substances other than those prescribed or required for medical reasons: No Advance Directives: Yes Advance Directives on File: Yes Advance Directives Date on File: 12/26/23 service: No Meds Allergies Allergy/AdvReac Type Severity Reaction Status Date / Time adalimumab (From Humira) Allergy Palpitation Verified 05/10/25 11:49 s etanercept (From Enbrel) Allergy Palpitation Verified 05/10/25 11:49 s Active Medications: Current Medications Sodium Chloride (Ns) 1,000 mls @ 999 mls/hr IV .Q1H1M ALVARO Stop: 05/10/25 13:15 Last Admin: 05/10/25 12:17 Dose: 999 mls/hr Home Medications ?Medication ?Instructions ?Recorded ?Confirmed ?Last Taken ?Type acetaminophen 500 mg tablet 1,000 mg PO Q6H PRN Pain 12/26/23 01/08/25 Unknown History albuterol sulfate 90 mcg/actuation 2 inh inhalation Q4H PRN cough or 12/26/23 01/08/25 Unknown History aerosol inhaler wheezing esomeprazole magnesium 40 mg 40 mg PO DAILY PRN Acid Reflux 12/26/23 01/08/25 Unknown History capsule,delayed release hydroxyzine HCl 10 mg tablet 10 mg PO BID Anxiety 12/26/23 01/08/25 Unknown History ipratropium 0.5 mg-albuterol 3 mg 3 ml inhalation Q4H PRN SOB 12/26/23 01/08/25 Unknown History (2.5 mg base)/3 mL nebulization soln fluticasone propionate 50 2 spray intranasal DAILY 01/09/25 01/09/25 Unknown History mcg/actuation nasal spray,suspension guaifenesin 100 mg/5 mL oral liquid 200 mg PO DAILY PRN Cough 01/09/25 01/09/25 Unknown History ipratropium 0.5 mg-albuterol 3 mg 3 ml inhalation BID 01/09/25 01/09/25 Unknown History (2.5 mg base)/3 mL nebulization soln sertraline 50 mg tablet 50 mg PO DAILY 01/09/25 01/09/25 Unknown History spironolactone 50 mg tablet 50 mg PO DAILY 01/09/25 01/09/25 Unknown History torsemide 20 mg tablet 100 mg PO DAILY 01/09/25 01/09/25 Unknown History apixaban 5 mg tablet (Eliquis) 5 mg PO BID 05/10/25 Unknown History diltiazem HCl 180 mg 180 mg PO DAILY 05/10/25 Unknown History capsule,extended release 24 hr fluticasone 500 mcg-salmeterol 50 1 inh inhalation BID 05/10/25 Unknown History mcg/dose blistr powdr for inhalation (Wixela Inhub) multivitamin with folic acid 400 1 tab PO DAILY 05/10/25 Unknown History mcg tablet (Daily-Anitha (with folic acid)) Physical Exam Vital Signs and Narrative: Vital Signs: Last Vital Signs Temp 97.9 F 05/10/25 11:42 Pulse 80 05/10/25 12:49 Resp 24 H 05/10/25 12:49 BP 118/52 L 05/10/25 12:49 Pulse Ox 99 05/10/25 12:33 O2 Del Method Room Air 05/10/25 12:33 BMI result Body Mass Index 32.5 General: AOx3, no acute distress Resp: CTA bilaterally CVS: S1, S2, RRR GI: +BS, NT, no distention Skin: Warm, dry Neuro: Cranial nerves II-XII grossly intact bilaterally. Motor grossly intact bilaterally Extremities: No edema Psych: Appropriate affect Results Labs 05/10/25 12:12 05/10/25 12:12 Labs: Laboratory Results - last 24 hr 05/10/25 12:12 MCV 88.5 MCH 30.0 MCHC 33.9 RDW 12.4 Plt Count 182 MPV 10.5 Immature Gran % (Auto) 0.6 H Neut % (Auto) 69.8 Lymph % (Auto) 22.5 [place] % (Auto) 5.7 Eos % (Auto) 0.4 Baso % (Auto) 1.0 Lymph # (Auto) 1.6 [place] # (Auto) 0.4 Eos # (Auto) 0.0 Baso # (Auto) 0.1 Abs Immat Gran (auto) 0.04 H Absolute Neuts (auto) 5.1 Absolute Nucleated RBC 0.000 Nucleated RBC % (auto) 0.0 Anion Gap 17 Estim Creat Clear Calc 36.7 Estimated GFR 53 Random Glucose 89 Lactic Acid 2.2 H* Calcium 9.5 Total Bilirubin 0.3 Direct Bilirubin 0.1 AST 21 ALT 13 Alkaline Phosphatase 72 Troponin I High Sens < 2.7 Total Protein 7.2 Albumin 4.1 Lipase 21 Imaging Radiologist's Impressions: Impressions Chest X-Ray 05/10/25 12:22 IMPRESSION: No acute disease. Electronically signed by: Eliseo Patel MD 05/10/2025 12:31 PM EST RP Assessment and Plan (1) Pre-syncope: Status: Acute Plan Pt is a 79-year-old female with a PMH significant for CHF, COPD, pulmonary hypertension, VIVIANA, asthma, RA, CAD with IL s/p stenting, and esophageal stenosis s/p dilations?who presents to the ED with?after reporting some black and dark bloody stools earlier this morning. Pt is admitted to the hospital for treatment and further evaluation of acute blood loss anemia concerning for upper GI bleed. Dark colored stools Concerning for GIB Hgb 1.2-->10.2 Bedside stool heme+; will send labs Protonix IV b.i.d. Hold Eliquis GI consult Monitor H&H Presyncopal episode Patient's BP has been noted to be soft during stay, though pt has chronic low blood pressure Pt given 1 L IVF in the ED Will gently resuscitate with additional 500 cc as pt has hx of CHF Recheck labs: CBC and BNP Check EKG, orthostatics Monitor on telemetry Acute lactic acidosis Lactic acid 2.2 Secondary to hypovolemia, not sepsis Pt received IVF CHF unspecified Hold diuretics for now due to soft BP Monitor volume status she has received IVF Mood disorder Continue home meds ?hx of AFib Pt appears to be on Eliquis and diltiazem Hold Eliquis if on med rec Full Code Attending:?Dr. Holcomb DVT Prophylaxis: Pneumatic compression due to concerns for GIB Admitted under observation treatment and further evaluation of possible GI bleed, as well as syncopal episode of unclear etiology. Quality Stroke Does the patient have a stroke diagnosis?: No VTE Prior VTE?: No VTE Risk Level:: Medical - moderate - high VTE Device Contraindication: Treatment Not Indicated VTE Drug Contraindication: N/A - Med Ordered
--- NOTE | 2025-05-10 13:50 | PC.NURSE ---
Pt presents to ED via EMS from [facility]. Reporting two episodes of bloody dark stool this morning, reports this has happened in the past. Reported everytime I eat strawberries this happens and I ate strawberries for breakfast . Denying pain, ABD pain, CP, N/V, dizziness. Pt is alert and oriented, breathing noted to be elevated intermittently, pt reporting intermittent SOB. Skin pale. No pain at this time. BP hypotensive, provider aware. IV placed, orders followed. Purewick placed for urine.
[2025-05-10 14:15] LABS: Reflex Lactate? Lactic Acid Added
[2025-05-10 15:12] LABS: ~Lactic Acid-LAB USE ONLY 1.4 mmol/L (0.5-2.0)
--- OUTSIDE RECORDS SUMMARY | 2025-05-10 15:22 | XMS_ITS | Continuity of Care Document ---
Author Organization [facility] Address [address] [place] [address] [address] [place], [place] Phone [phone] Care Team Providers Care Synoptic Meteorologist Name Role Phone John Elizalde MD Care Team Information Neurology Nurse Unavailable Social History Type Date Description Comments Sex Female Sex Unknown
[2025-05-10 15:49] LABS: Cancel Lactic Acid Canceled
--- NOTE | 2025-05-10 16:42 | PC.NURSE ---
Pt arrive from main ED. A/Ox3. States i can walk great with my cane pt sat up on side of stretcher and asissted to standing by this RN and CLEANING SPECIALIST. Pt with syncopal episode upon standing became unresponsive and assisted to ground. Rapid response called and providers to bedside. Pt transferred to 475, report called to Danya
[2025-05-10] MEDS: Lactated Ringers 500 ML 999 ML IV (17:01)
[2025-05-10 17:12] LABS: Glucose, Whole Blood 119 mg/dL (60-115)
--- NOTE | 2025-05-10 18:18 | PM.EVENT ---
Event Note Date of Service: 05/10/25 Event Note: GI Consult-Full note dictated Imp: Apparent UGI bleed, despite the use of a PPI, based on the patient's history, ER rectal exam with black and tarry stool, decreased Hgb and increased BUN:Cr as compared to baseline in 12/2024, history of previous upper endoscopies for esophageal dilations for strictures, and risk factors of the apparent use of Eliquis and a low dose aspirin. She presently appears to be stable without any signs of active bleeding. Her abdominal exam is benign. Diff dx: PUD, esophagitis, gastritis Rec: IV PPI, monitor Hgb,try to obtain GI records from [facility] or [facility]. and EGD tomorrow. Full consent has been obtained from her for this, including risks of bleeding and perforation. I don't think she requires a colonoscopy based on her current history. D/W patient in detail and she is comfortable with this plan. Thanks Time Spent With Patient Time: Total time managing care of this patient today ____ minutes.
--- NOTE | 2025-05-10 18:24 | PHA.MEDREC ---
Pharmacy Consult ? Medication Reconciliation Pharmacy has completed the medication reconciliation.Med rec complete, utilized list from [facility], confirmed by calling facility that patient was still on diltiazem and apixaban even though they were not included on list that was sent
[2025-05-10 18:31] LABS: INTERNATIONAL NORM RATIO 2.1 (0.9-1.1); Prothrombin Time 24.8 SEC (11.2-13.5)
[2025-05-10 18:37] LABS: Anion Gap 12 (12-20); Blood Urea Nitrogen 58 mg/dL (9-16); Carbon Dioxide 25 mmol/L (22-29); Chloride 106 mmol/L (96-108); Creatinine Clr Calc Pharmacy 39.3; Estimated Glomerular Filt Rate 53; Potassium 3.1 mmol/L (3.3-5.1); Sodium 140 mmol/L (135-145)
[2025-05-10 18:42] LABS: Calcium 8.5 mg/dL (8.4-10.2)
[2025-05-10 19:09] LABS: Hematocrit 24.8 % (37.0-47.0); Hemoglobin 8.4 g/dl (12.0-16.0); Mean Corpuscular HGB Conc 33.9 g/dl (31.0-35.0); Mean Corpuscular Hemoglobin 30.7 pg (27.0-33.0); Mean Corpuscular Volume 90.5 fL (80.0-98.0); NRBC Abs Auto 0.000 X10*3/uL (0.0-0.012); NRBC Pct Auto 0.0 /100WBC (0.0-0.2); Platelet Count 161 X10*3/uL (160-400); Red Blood Count 2.74 X10*6/uL (4.20-5.50); White Blood Count 8.3 X10*3/uL (4.8-10.8)
[2025-05-10] MEDS: Potassium Chloride Packet 20 MEQ PACKET 40 MEQ PO (19:21)
[2025-05-10] MEDS: Albuterol/Iprat 2.5/0.5MG 3 ML AMPUL.NEB INHALE (20:23)
[2025-05-10] MEDS: 0.9 % Sodium Chloride Flush 3 ML SYRINGE IVFLUSH (20:29)
[2025-05-11] VITALS (12 sets, daily range): BP systolic 97–121; BP diastolic 46–60; PULSE 69–99; RESP 16–20; TEMP 36.1–38; O2SAT 96–100
--- NOTE | 2025-05-11 04:21 | CONS_ITS ---
DATE OF SERVICE: 05/10/2025 REASON FOR CONSULTATION: Report of melena and anemia. HISTORY OF PRESENT ILLNESS: This has been obtained from the patient, her nurse, and the medical record. The patient is a 79-year-old female transferred to the ER today from the [facility] for evaluation of some reported dark stool and weakness with associated syncope apparently. Her medication list includes Eliquis, esomeprazole, and 81 mg aspirin by her report. She describes some dark stools lately but not clear whether or not this represents actual melena. She describes a diminished appetite and some chronic dysphagia. She does have heartburn, which is presently controlled with her PPI. She does describe previous upper endoscopies for esophageal dilations and colonoscopy either at [facility] or at [facility]. Her presentation in the ER was notable for some hypotension and pallor. A rectal exam revealed some dark black stool. She did have a change in her hemoglobin from 12.2 in December to 10.2 today. Her BUN was also elevated at 49 today, compared to 31 back in December. She denies tobacco or alcohol use. She denies any chronic NSAIDs. MEDICATIONS: List includes acetaminophen, albuterol inhaler, esomeprazole, hydroxyzine, Flonase, guaifenesin, sertraline, spironolactone, torsemide, Eliquis, diltiazem, and vitamins. Her current medications here include IV pantoprazole 40 mg twice a day, Zofran, milk of magnesia, melatonin, Tums, and acetaminophen all p.r.n. PAST SURGICAL HISTORY: She describes surgeries including cholecystectomy, hysterectomy, appendectomy, bilateral hip and knee replacements. MEDICAL PROBLEMS: Include COPD, hypertension, sleep apnea, coronary artery disease with previous coronary artery stent, esophageal stricture with previous dilation and pulmonary hypertension. She denies any history of diabetes or stroke. SOCIAL HISTORY: She lives at the [facility]. She denies tobacco or alcohol use. FAMILY HISTORY: Noncontributory. REVIEW OF SYSTEMS: CONSTITUTIONAL: She has been feeling somewhat weak, which prompted her ER visit today as well. SKIN: No rash, no pruritus. CARDIAC: No chest pain. PULMONARY: No coughing or hemoptysis. GI: As above. URINARY: No dysuria, no hematuria. NEUROLOGIC: No headache or seizures. PHYSICAL EXAMINATION: GENERAL: The patient is a pleasant, alert, somewhat pale female, in no distress. SKIN: Warm and dry. Anicteric sclerae. Moist mucous membranes. NECK: Supple. CARDIAC: Normal S1, S2. ABDOMEN: Soft, nondistended, normal bowel sounds and nontender. LABORATORY DATA: As above. Normal electrolytes. BUN 49, creatinine 1.0. BUN was 31 with a creatinine of 1.1 back in December. Liver profile within normal limits. Lipase 21. White blood cell count 7.3, hemoglobin 10.2, MCV 89, platelets 182,000. Hemoglobin was 12.2 back in December. Chest x-ray on admission is described as negative and without any acute disease. IMPRESSION: Given the patient's clinical history of some weakness, decreased hemoglobin with elevated BUN, and the rectal exam description by the ER provider showing some dark black stool, I would be concerned about a possible upper GI bleed despite her already being on a PPI. She is on Eliquis and possibly low-dose aspirin, which could certainly predispose to this despite the PPI. This may represent ulcer disease or erosive gastritis. She does have a history of reported esophageal strictures and she may have some component of esophagitis as well. At this point, she appears stable. I would recommend continued following of her blood counts. I would check a PT with INR. I would recommend upper endoscopy while here in the hospital for further evaluation. Full consent has been obtained from her for this, including risks of bleeding and perforation. If she shows signs of active bleeding, she may need to be treated with the reversal agent for Eliquis as well, but at this point I would hold off on that since there does not appear to be any signs of active bleeding. Based on the clinical history does not sound like she needs a colonoscopy at this time. I will attempt to obtain records from her previous GI procedures at either [facility] or at [facility]. This has all been reviewed with the patient in detail and she is comfortable with that plan. Thank you for the consultation. MD ALEXA Hodges/ISRAEL / [phone]
[2025-05-11 07:04] LABS: Hematocrit 23.5 % (37.0-47.0); Hemoglobin 7.9 g/dl (12.0-16.0); Mean Corpuscular HGB Conc 33.6 g/dl (31.0-35.0); Mean Corpuscular Hemoglobin 30.9 pg (27.0-33.0); Mean Corpuscular Volume 91.8 fL (80.0-98.0); NRBC Abs Auto 0.000 X10*3/uL (0.0-0.012); NRBC Pct Auto 0.0 /100WBC (0.0-0.2); Platelet Count 144 X10*3/uL (160-400); Red Blood Count 2.56 X10*6/uL (4.20-5.50); White Blood Count 6.2 X10*3/uL (4.8-10.8)
[2025-05-11 07:09] LABS: INTERNATIONAL NORM RATIO 1.5 (0.9-1.1); Prothrombin Time 18.4 SEC (11.2-13.5)
[2025-05-11 07:16] LABS: Anion Gap 11 (12-20); Blood Urea Nitrogen 52 mg/dL (9-16); Calcium 8.5 mg/dL (8.4-10.2); Carbon Dioxide 25 mmol/L (22-29); Chloride 109 mmol/L (96-108); Creatinine Clr Calc Pharmacy 42.6; Estimated Glomerular Filt Rate 58; Potassium 3.2 mmol/L (3.3-5.1); Sodium 142 mmol/L (135-145)
--- NOTE | 2025-05-11 07:16 | HO.PM.IMPN ---
Subjective Subjective Date of Service: 05/11/25 Interval History: Patient underwent EGD- findings as below per GI note:EGD with biopsies 1. Nonbleeding approximately 2cm x 5mm gastric antral ulcer above pylorus with a clean base. Grossly benign, but biopsied margins of the ulcer, and then obtained separate antral biopsies 2. Hiatal hernia, no esophageal stricture. Review of Systems Review of Systems: Yes all other systems are reviewed and are negative Physical Exam Exam: Exam: GENERAL: The patient is a pleasant, alert, somewhat pale female, in no distress. SKIN: Warm and dry. Anicteric sclerae. Moist mucous membranes. NECK: Supple. CARDIAC: Normal S1, S2. ABDOMEN: Soft, nondistended, normal bowel sounds and nontender. Vital Signs: Vital Signs: Last Vital Signs Temp 96.9 F 05/11/25 03:36 Pulse 73 05/11/25 03:36 Resp 16 05/11/25 03:36 BP 100/51 L 05/11/25 03:36 Pulse Ox 96 05/11/25 03:36 O2 Del Method Room Air 05/11/25 03:36 BMI result Body Mass Index 31.2 Objective Data Active Medications Acetaminophen (Acetaminophen 325 Mg Tablet) 650 mg PO Q6H PRN PRN Reason: Pain, Mild 1-3,fever,headache Albuterol/Ipratropium (Albuterol/Iprat 2.5/0.5mg 3 Ml Ampul.Neb) 3 ml INHALE RBID [facility] Last Admin: 05/10/25 20:23 Dose: 3 ml Documented By: YAO Calcium Carbonate (Calcium Carbonate 750 Mg Tab.Chew) 750 mg PO Q4H PRN PRN Reason: Heartburn Docusate Sodium (Docusate Sodium 100 Mg Capsule) 100 mg PO BID [facility] Last Admin: 05/10/25 19:21 Dose: 100 mg Documented By: RIOSTEPHIE Fluticasone Propionate (Fluticasone Propionate Nasal 16 Gm [place]) 2 spray NOSTRIL-B DAILY [facility] Fluticasone/Vilanterol (Fluticasone/Vilanterol 200/25 Blst.W.Dev) 1 puff INHALE RDAILY [facility] Guaifenesin (Guaifenesin 200 Mg/10 Ml 10 Ml Liquid) 10 ml PO DAILY PRN PRN Reason: Cough Hydroxyzine HCl (Hydroxyzine Hcl 10 Mg Tablet) 10 mg PO BID PRN PRN Reason: Anxiety Last Admin: 05/10/25 19:21 Dose: 10 mg Documented By: KELLE Magnesium Hydroxide (Milk Of Magnesia 30 Ml Oral.Susp) 30 ml PO DAILY PRN PRN Reason: Constipation Melatonin (Melatonin 3 Mg Tablet) 6 mg PO BEDTIME PRN PRN Reason: Insomnia Multivitamins/Vitamin C (Multivitamin Tablet) 1 tab PO DAILY [facility] Ondansetron HCl (Ondansetron Hcl 4 Mg/2 Ml Vial) 4 mg IVPUSH Q8H PRN PRN Reason: Nausea and Vomiting Pantoprazole Sodium (Pantoprazole Sodium 40 Mg/10 Ml Vial) 40 mg IVPUSH BID@0630,1630 [facility] Last Admin: 05/11/25 05:40 Dose: 40 mg Documented By: HAKAN Sertraline HCl (Sertraline Hcl 50 Mg Tablet) 50 mg PO DAILY [facility] Sodium Chloride (0.9 % Sodium Chloride Flush 3 Ml Syringe) 3 ml IVFLUSH QSHIFT [facility] Last Admin: 05/10/25 20:29 Dose: 3 ml Documented By: HAKAN Labs 05/11/25 06:46 05/11/25 06:46 Labs: Laboratory Results - last 24 hr 05/10/25 05/10/25 05/10/25 12:12 12:16 14:43 MCV 88.5 MCH 30.0 MCHC 33.9 RDW 12.4 Plt Count 182 MPV 10.5 Immature Gran % (Auto) 0.6 H Neut % (Auto) 69.8 Lymph % (Auto) 22.5 [place] % (Auto) 5.7 Eos % (Auto) 0.4 Baso % (Auto) 1.0 Lymph # (Auto) 1.6 [place] # (Auto) 0.4 Eos # (Auto) 0.0 Baso # (Auto) 0.1 Abs Immat Gran (auto) 0.04 H Absolute Neuts (auto) 5.1 Absolute Nucleated RBC 0.000 Nucleated RBC % (auto) 0.0 PT INR Anion Gap 17 Estim Creat Clear Calc 36.7 Estimated GFR 53 POC Glucose Random Glucose 89 Lactic Acid 2.2 H* Lactic Acid F/U @ 2Hr 1.4 Calcium 9.5 Total Bilirubin 0.3 Direct Bilirubin 0.1 AST 21 ALT 13 Alkaline Phosphatase 72 Troponin I High Sens < 2.7 Total Protein 7.2 Albumin 4.1 Lipase 21 Blood Type A Negative Antibody Screen NEGATIVE 05/10/25 05/10/25 05/11/25 17:00 18:01 06:46 MCV 90.5 91.8 MCH 30.7 30.9 MCHC 33.9 33.6 RDW 12.5 12.8 Plt Count 161 144 L MPV 10.5 10.3 Immature Gran % (Auto) Neut % (Auto) Lymph % (Auto) [place] % (Auto) Eos % (Auto) Baso % (Auto) Lymph # (Auto) [place] # (Auto) Eos # (Auto) Baso # (Auto) Abs Immat Gran (auto) Absolute Neuts (auto) Absolute Nucleated RBC 0.000 0.000 Nucleated RBC % (auto) 0.0 0.0 PT 24.8 H INR 2.1 H Anion Gap 12 Estim Creat Clear Calc 39.3 Estimated GFR 53 POC Glucose 119 H Random Glucose 115 Lactic Acid Lactic Acid F/U @ 2Hr Calcium 8.5 D Total Bilirubin Direct Bilirubin AST ALT Alkaline Phosphatase Troponin I High Sens Total Protein Albumin Lipase Blood Type Antibody Screen Assessment and Plan (1) Diastolic CHF: Status: Acute Plan Pt is a 79-year-old female with a PMH significant for CHF, COPD, pulmonary hypertension, VIVIANA, asthma, RA, CAD with ID s/p stenting, and esophageal stenosis s/p dilations who presents to the ED with after reporting some black and dark bloody stools earlier this morning. Pt is admitted to the hospital for treatment and further evaluation of acute blood loss anemia concerning for upper GI bleed. Dark colored stools likely secondary to EGD proven Nonbleeding approximately 2cm x 5mm gastric antral ulcer above pylorus with a clean base Hiatal hernia without esophageal stricture Patient underwent EGD and was noted to have nonbleeding gastric antral ulcers, biopsies taken We will monitor H&H We will change to PPI b.i.d. Holding all blood thinners to 1-2 weeks high-risk as the patient needs aspirin and anticoagulation We will likely consult with Cardiology Her presyncopal episode on the day of admission was likely in the setting of vasovagal versus hypovolemic as she responded to fluids , we will check orthostatics in the a.m. Chronic hypotension-likely her baseline, however we will continue to hydrate her with NS at 75 cc ID s/p stenting-continue home meds, we will continue to hold aspirin and anticoagulation Acute lactic acidosis was likely in the setting of hypoperfusion as she responded to fluids , less likely secondary to sepsis. Hemodynamically stable afebrile without any further episodes of hypotension or lactic acidosis Patient less likely to have CHF-TTE done on 05/11/2025 suggestive of grade 1 mild diastolic dysfunction. Mood disorder Continue home meds ?hx of AFib Pt appears to be on Eliquis and diltiazem, however she appears to be in sinus rhythm Given risks versus benefits, we will hold Eliquis and consult Cardiology if she really needs to be on Eliquis Risks versus benefits explained to the patient and her son by GI physician Full Code DVT Prophylaxis: SCD boots given UGI be Patient we will likely need 1 more day of hospitalization to monitor her hemodynamic status prior to discharge. This is to ensure/prevent hemorrhagic shock in the setting of acute UGI be causing anemia Quality Stroke Does the patient have a stroke diagnosis?: No VTE Prior VTE?: No VTE Risk Level:: Medical - moderate - high VTE Device Contraindication: N/A - Device Ordered VTE Drug Contraindication: Treatment Not Indicated
[2025-05-11] MEDS: Fluticasone/Vilanterol 200/25 BLST.W.DEV 1 PUFF INHALE (07:39)
[2025-05-11] MEDS: Albuterol/Iprat 2.5/0.5MG 3 ML AMPUL.NEB INHALE ×2 (07:39→19:58)
[2025-05-11] MEDS: 0.9 % Sodium Chloride Flush 3 ML SYRINGE IVFLUSH ×3 (07:49→23:03)
--- NOTE | 2025-05-11 08:11 | P.CONAN_ITS ---
Documented by User: Susan Lee NP 05/11/25 14:47 HPI - Anesthesia Eval Consult details Narrative: 79 yr old female for EGD *INR 1.5; K+ 3.2 05/11/25 No recent illness, chronic intermittent congestion; no CP; + SOB at baseline; uses O2 at night time prn. Hypotension: pt reports BP runs low, arrived to ED with BPs 80s/50s, s/p fluid resuscitation. CAD: H/O NE, s/p stenting, follows [facility] cardiology Diastolic HF, pulmonary HTN: no recent echo obtained, requested stat echo COPD: albuterol use daily; no recent coughing or wheezing. PMFSH Active Problems Active Problems: All Active Problems Pre-syncope (Acute) Melena (Acute) Hemorrhagic shock (Acute) Depression (Acute) History of esophageal stricture (Acute) Hypothyroid (Acute) COPD (chronic obstructive pulmonary disease) (Acute) HTN (hypertension) (Acute) Pulmonary HTN (Acute) Rheumatoid arthritis (Acute) Oxygen dependent (Acute) Obesity (BMI 35.0-39.9 without comorbidity) (Acute) Status post laparoscopic cholecystectomy (Acute) Postop check (Acute) Diastolic CHF (Acute) Past Medical History Medical History Paroxysmal A-fib Lymphedema Rheumatoid arthritis Diastolic CHF Pulmonary HTN COPD (chronic obstructive pulmonary disease) HTN (hypertension) Family History Family history of problems with anesthesia: No Surgical History Surgical History History of laparoscopic cholecystectomy (12/27/23) History of Problems with Anesthesia: No Social History Social History Household Members: None Housing: Assisted Living Facility Do you presently have visiting nurse or other home services: Yes Patient Tobacco Use Status: Never used Tobacco Smoked in Last 30 Days: No Second Hand Smoke Exposure: No Use of substances other than those prescribed or required for medical reasons: No Currently Displaying Signs/Symptoms of Drug Intoxication Withdrawal: No Have you been hit, kicked, punched, or otherwise hurt by someone within the past year? If so, by whom?: No Do you feel safe in your current relationship?: No Current Relationship Is there a partner from a previous relationship who is making you feel unsafe now?: No Are you made to feel afraid or neglected: No Advance Directives: Yes Advance Directives on File: Yes Advance Directives Date on File: 12/26/23 Do you have a plan to hurt others: No Plan Recently lost weight without trying: No Eating poorly because of decreased appetite: No Nutrition Risks: No Nutritional Risk Patient : No : No Poor oral hygiene: No service: No Meds Allergies Allergy/AdvReac Type Severity Reaction Status Date / Time adalimumab (From Humira) Allergy Palpitation Verified 05/10/25 11:49 s etanercept (From Enbrel) Allergy Palpitation Verified 05/10/25 11:49 s Active Medications: Current Medications Acetaminophen (Acetaminophen 325 Mg Tablet) 650 mg PO Q6H PRN PRN Reason: Pain, Mild 1-3,fever,headache Albuterol/Ipratropium (Albuterol/Iprat 2.5/0.5mg 3 Ml Ampul.Neb) 3 ml INHALE RBID [facility] Last Admin: 05/11/25 07:39 Dose: 3 ml Calcium Carbonate (Calcium Carbonate 750 Mg Tab.Chew) 750 mg PO Q4H PRN PRN Reason: Heartburn Docusate Sodium (Docusate Sodium 100 Mg Capsule) 100 mg PO BID [facility] Last Admin: 05/11/25 07:49 Dose: 100 mg Fluticasone Propionate (Fluticasone Propionate Nasal 16 Gm [place]) 2 spray NOSTRIL-B DAILY [facility] Last Admin: 05/11/25 07:49 Dose: 2 spray Fluticasone/Vilanterol (Fluticasone/Vilanterol 200/25 Blst.W.Dev) 1 puff INHALE RDAILY [facility] Last Admin: 05/11/25 07:39 Dose: 1 puff Guaifenesin (Guaifenesin 200 Mg/10 Ml 10 Ml Liquid) 10 ml PO DAILY PRN PRN Reason: Cough Hydroxyzine HCl (Hydroxyzine Hcl 10 Mg Tablet) 10 mg PO BID PRN PRN Reason: Anxiety Last Admin: 05/10/25 19:21 Dose: 10 mg Magnesium Hydroxide (Milk Of Magnesia 30 Ml Oral.Susp) 30 ml PO DAILY PRN PRN Reason: Constipation Melatonin (Melatonin 3 Mg Tablet) 6 mg PO BEDTIME PRN PRN Reason: Insomnia Multivitamins/Vitamin C (Multivitamin Tablet) 1 tab PO DAILY [facility] Last Admin: 05/11/25 07:48 Dose: 1 tab Ondansetron HCl (Ondansetron Hcl 4 Mg/2 Ml Vial) 4 mg IVPUSH Q8H PRN PRN Reason: Nausea and Vomiting Pantoprazole Sodium (Pantoprazole Sodium 40 Mg/10 Ml Vial) 40 mg IVPUSH BID@0630,1630 [facility] Last Admin: 05/11/25 05:40 Dose: 40 mg Sertraline HCl (Sertraline Hcl 50 Mg Tablet) 50 mg PO DAILY [facility] Last Admin: 05/11/25 07:48 Dose: 50 mg Sodium Chloride (0.9 % Sodium Chloride Flush 3 Ml Syringe) 3 ml IVFLUSH QSHIFT [facility] Last Admin: 05/11/25 07:49 Dose: 3 ml Home Medications ?Medication ?Instructions ?Recorded ?Confirmed ?Last Taken ?Type acetaminophen 500 mg tablet 1,000 mg PO Q6H PRN Pain 0 12/26/23 05/10/25 Unknown History albuterol sulfate 90 mcg/actuation 2 inh inhalation Q4 H PRN cough or 12/26/23 05/10/25 Unknown History aerosol inhaler wheezing esomeprazole magnesium 40 mg 40 mg PO DAILY PRN Acid R eflux 12/26/23 05/10/25 Unknown History capsule,delayed release hydroxyzine HCl 10 mg tablet 10 mg PO BID PRN Anxiety 12/26/23 05/10/25 Unknown History ipratropium 0.5 mg-albuterol 3 mg 3 ml inhalation Q4H PRN SOB 12/26/23 05/10/25 Unknown History (2.5 mg base)/3 mL nebulization soln fluticasone propionate 50 2 spray intranasal DAILY 06/2405/10/25 Unknown History mcg/actuation nasal spray,suspension guaifenesin 100 mg/5 mL oral liquid 200 mg PO DAILY [facility] N Cough 01/09/25 05/10/25 Unknown History ipratropium 0.5 mg-albuterol 3 mg 3 ml inhalation BID 01/09/25 05/10/25 Unknown History (2.5 mg base)/3 mL nebulization soln sertraline 50 mg tablet 50 mg PO DAILY 01/09/2505/01 Unknown History spironolactone 50 mg tablet 50 mg PO DAILY 01/09/25 Unknown History torsemide 20 mg tablet 100 mg PO DAILY 01/09/2504/24 Unknown History apixaban 5 mg tablet (Eliquis) 5 mg PO BID 05/10/25 Unknown History diltiazem HCl 180 mg 180 mg PO DAILY 05/10/2504/24 Unknown History capsule,extended release 24 hr fluticasone 500 mcg-salmeterol 50 1 inh inhalation BID 05/10/25 05/10/25 Unknown History mcg/dose blistr powdr for inhalation (Wixela Inhub) multivitamin with folic acid 400 1 tab PO DAILY 05/10/25 Unknown History mcg tablet (Daily-Anitha (with folic acid)) naproxen 375 mg tablet 375 mg PO BID 05/10/2505/10 Unknown History Exam Height,Weight and Vital Signs: Height 4 ft 11 in Weight 70 kg Last Vital Signs Temp 97.4 F 05/11/25 07:18 Pulse 69 05/11/25 07:40 Resp 16 05/11/25 07:40 BP 104/53 L 05/11/25 07:18 Pulse Ox 100 05/11/25 07:18 O2 Del Method Room Air 05/11/25 07:18 Pertinent Lab Results Pertinent Lab Results: Laboratory Tests 05/10/25 05/10/25 05/10/25 12:12 12:16 14:43 WBC 7.3 RBC 3.40 L Hgb 10.2 L Hct 30.1 L MCV 88.5 MCH 30.0 MCHC 33.9 RDW 12.4 Plt Count 182 MPV 10.5 Immature Gran % (Auto) 0.6 H Neut % (Auto) 69.8 Lymph % (Auto) 22.5 [place] % (Auto) 5.7 Eos % (Auto) 0.4 Baso % (Auto) 1.0 Lymph # (Auto) 1.6 [place] # (Auto) 0.4 Eos # (Auto) 0.0 Baso # (Auto) 0.1 Abs Immat Gran (auto) 0.04 H Absolute Neuts (auto) 5.1 Absolute Nucleated RBC 0.000 Nucleated RBC % (auto) 0.0 PT INR Sodium 138 Potassium 3.8 Chloride 102 Carbon Dioxide 23 Anion Gap 17 BUN 49 H Creatinine 1.02 Estim Creat Clear Calc 36.7 Estimated GFR 53 POC Glucose Random Glucose 89 Lactic Acid 2.2 H* Lactic Acid F/U @ 2Hr 1.4 Calcium 9.5 Total Bilirubin 0.3 Direct Bilirubin 0.1 AST 21 ALT 13 Alkaline Phosphatase 72 Troponin I High Sens < 2.7 Total Protein 7.2 Albumin 4.1 Lipase 21 Blood Type A Negative Antibody Screen NEGATIVE 05/10/25 05/10/25 05/11/25 17:00 18:01 06:46 WBC 8.3 6.2 RBC 2.74 L 2.56 L Hgb 8.4 L 7.9 L Hct 24.8 L 23.5 L MCV 90.5 91.8 MCH 30.7 30.9 MCHC 33.9 33.6 RDW 12.5 12.8 Plt Count 161 144 L MPV 10.5 10.3 Immature Gran % (Auto) Neut % (Auto) Lymph % (Auto) [place] % (Auto) Eos % (Auto) Baso % (Auto) Lymph # (Auto) [place] # (Auto) Eos # (Auto) Baso # (Auto) Abs Immat Gran (auto) Absolute Neuts (auto) Absolute Nucleated RBC 0.000 0.000 Nucleated RBC % (auto) 0.0 0.0 PT 24.8 H INR 2.1 H Sodium 140 142 Potassium 3.1 L 3.2 L Chloride 106 109 H Carbon Dioxide 25 25 Anion Gap 12 11 L BUN 58 H 52 H Creatinine 1.02 0.94 Estim Creat Clear Calc 39.3 42.6 Estimated GFR 53 58 POC Glucose 119 H Random Glucose 115 112 Lactic Acid Lactic Acid F/U @ 2Hr Calcium 8.5 D 8.5 Total Bilirubin Direct Bilirubin AST ALT Alkaline Phosphatase Troponin I High Sens Total Protein Albumin Lipase Blood Type Antibody Screen Narrative Narrative: EKG 05/10/25 Vent. Rate : 77 BPM Atrial Rate : 77 BPM P-R Int : 144 ms QRS Dur : 72 ms QT Int : 380 ms P-R-T Axes : 35 -29 26 degrees QTcB Int : 430 ms Normal sinus rhythm Normal ECG When compared with ECG of 11-Jan-2025 11:57, Premature ventricular complexes are no longer Present Airway Mallampati Class: III TM Dist: >3cm Neck ROM: Limited Loose/Missing/Broken Teeth: Yes (poor dental hygiene), Upper and Lower Heart: RRR Lungs: CTAB Assessment and Plan Final Anesthetic Review Family History of Problems with Anesthesia: No History of Problems with Anesthesia: No Documented by User: Pamela Penn MD 05/11/25 16:58 PMFSH Past Medical History Medical History Paroxysmal A-fib Lymphedema Rheumatoid arthritis Diastolic CHF Pulmonary HTN COPD (chronic obstructive pulmonary disease) HTN (hypertension) Surgical History Surgical History History of laparoscopic cholecystectomy (12/27/23) Social History Social History Household Members: None Housing: Assisted Living Facility Do you presently have visiting nurse or other home services: Yes Patient Tobacco Use Status: Never used Tobacco Smoked in Last 30 Days: No Second Hand Smoke Exposure: No Use of substances other than those prescribed or required for medical reasons: No Currently Displaying Signs/Symptoms of Drug Intoxication Withdrawal: No Have you been hit, kicked, punched, or otherwise hurt by someone within the past year? If so, by whom?: No Do you feel safe in your current relationship?: No Current Relationship Is there a partner from a previous relationship who is making you feel unsafe now?: No Are you made to feel afraid or neglected: No Advance Directives: Yes Advance Directives on File: Yes Advance Directives Date on File: 12/26/23 Do you have a plan to hurt others: No Plan Recently lost weight without trying: No Eating poorly because of decreased appetite: No Nutrition Risks: No Nutritional Risk Patient : No : No Poor oral hygiene: No service: No Meds Allergies Allergy/AdvReac Type Severity Reaction Status Date / Time adalimumab (From Humira) Allergy Palpitation Verified 05/10/25 11:49 s etanercept (From Enbrel) Allergy Palpitation Verified 05/10/25 11:49 s Home Medications ?Medication ?Instructions ?Recorded ?Confirmed ?Last Taken ?Type acetaminophen 500 mg tablet 1,000 mg PO Q6H PRN Pain 0 12/26/23 05/10/25 Unknown History albuterol sulfate 90 mcg/actuation 2 inh inhalation Q4 H PRN cough or 12/26/23 05/10/25 Unknown History aerosol inhaler wheezing esomeprazole magnesium 40 mg 40 mg PO DAILY PRN Acid R eflux 12/26/23 05/10/25 Unknown History capsule,delayed release hydroxyzine HCl 10 mg tablet 10 mg PO BID PRN Anxiety 12/26/23 05/10/25 Unknown History ipratropium 0.5 mg-albuterol 3 mg 3 ml inhalation Q4H PRN SOB 12/26/23 05/10/25 Unknown History (2.5 mg base)/3 mL nebulization soln fluticasone propionate 50 2 spray intranasal DAILY 06/2405/10/25 Unknown History mcg/actuation nasal spray,suspension guaifenesin 100 mg/5 mL oral liquid 200 mg PO DAILY NC N Cough 01/09/25 05/10/25 Unknown History ipratropium 0.5 mg-albuterol 3 mg 3 ml inhalation BID 01/09/25 05/10/25 Unknown History (2.5 mg base)/3 mL nebulization soln sertraline 50 mg tablet 50 mg PO DAILY 01/09/2505/01 Unknown History spironolactone 50 mg tablet 50 mg PO DAILY 01/09/25 Unknown History torsemide 20 mg tablet 100 mg PO DAILY 01/09/2504/24 Unknown History apixaban 5 mg tablet (Eliquis) 5 mg PO BID 05/10/25 Unknown History diltiazem HCl 180 mg 180 mg PO DAILY 05/10/2504/24 Unknown History capsule,extended release 24 hr fluticasone 500 mcg-salmeterol 50 1 inh inhalation BID 05/10/25 05/10/25 Unknown History mcg/dose blistr powdr for inhalation (Wixela Inhub) multivitamin with folic acid 400 1 tab PO DAILY 05/10/25 Unknown History mcg tablet (Daily-Anitha (with folic acid)) naproxen 375 mg tablet 375 mg PO BID 05/10/2505/10 Unknown History Exam Airway Mallampati Class: III (globally poor dentition) Assessment and Plan Assessment Anesthesia Assessment: Anesthesia Plan Discussed and Chart Reviewed Final Anesthetic Review ASA Class: III Final Preanesthetic Review: Meds/Allgs Chart Reviewed, Consent Obtained/Reviewed and Anes Risks/Benef Reviewed Patient Risk: Intermediate Procedure Risk: Intermediate Anesthetic Plan Anesthetic Plan: MAC: Disposition: Standard PACU
--- NOTE | 2025-05-11 11:42 | MHC.CM.PN ---
IMM 05/11/25, Pt. lives at [facility]. She is able to complete her own personal care, has stand by assist when she takes a shower. PCP is confirmed: Joe Smith MD. HCP are her 2 sons, Wilfrido and Eliezer. Transport home either by [facility] or [facility]. DCP: home, resume rest home services. CM to follow for DC needs.
--- NOTE | 2025-05-11 12:00 | CA_ITS ---
Transthoracic Echocardiogram Patient (Last, First, Middle): Radha Johns, Gender: F Date of : 1945 Age: 79 Procedure Date: 05/11/2025 Procedure Type: Transthoracic Echocardiogram Location: [facility] [place] Height: 149. cm Weight: 69.85 kg BSA: 1.64 m2 Heart Rate: 79 bpm BP: 104 / 53 mmHg Graduate Assistant Athletic Trainer: SHERRI Seo MD: Marian Holcomb MD Java Developer Analyst: Basil Cortez MD Symptoms: PRE OP Study Quality: Fair ECG Rhythm: Sinus Conclusions: - 1. Hyperdynamic LV EF of greater than 70% with grade 1 diastolic dysfunction 2. Mild aortic stenosis 3. No gross pericardial effusion Findings Left Ventricle Normal left ventricular cavity size. There is normal left ventricular wall thickness. The left ventricular systolic function is hyperdynamic. The visually estimated ejection fraction is >70%. Spectral Doppler is indicative of an impaired relaxation filling pattern. E/E prime ratio is <8, consistent with normal filling pressures. Evidence suggests grade I (mild) diastolic dysfunction. Right Ventricle Normal right ventricular cavity size and systolic function. Atria The left atrium is likely dilated. There is no evidence of interatrial shunt. The right atrium is normal in size. Aortic Valve There is mild calcification of the aortic valve. There is mild aortic valve stenosis. The peak aortic gradient is 14 mmHg.The mean gradient is 7 mmHg. The aortic valve area is 1.73 cm2. There is no aortic valve regurgitation. Mitral Valve There is mild anterior and posterior mitral leaflet thickening. There is trace mitral valve regurgitation. There is no mitral valve stenosis. Pulmonic Valve The pulmonic valve was not well visualized. Tricuspid Valve Likely normal tricuspid valve structure and function. Tricuspid regurgitation envelope is inadequate for calculation of right ventricular systolic pressure. Normal right atrial pressure. Great Vessels The aorta was not well visualized. The pulmonary artery was not well visualized. There is no dilatation of the ascending aorta measuring 3.30 cm. Venous The inferior vena cava is normal in size and collapses greater than 50% with inspiration. Pericardium/Pleural There is no evidence of pericardial effusion. Prior Study Comparison No prior study available for comparison. Measurements 2D Linear Measurements IVSd: 0.95 0.6-0.9/0.6-1.0 cm LVIDd: 4.11 3.9-5.3/4.2-5.9 cm LVIDd Index: 2.51 2.4-3.2/2.2-3.1 cm/m2 LVIDs: 2.44 2.0-3.6 cm LVPWd: 0.88 0.7-1.1 cm LA Diam: 3.50 2.7-3.8/3.0-4.0 cm LAIDs Index: 2.13 1.5-2.3 cm/m2 LV Mass: 145.43 67-162/88-224 g LV Mass Index: 88.68 43-95/49-115 g/m2 LVOT Diam: 1.90 3.0+(-)1.3 cm 2D Systolic Function EF 4C: 68.50 >55% EF 2C: 79.70 >55% EF BiP: 74.60 >55% Mitral Valve MV Pk E: 0.81 MV PK A: 1.00 MV Decel Time: 236.00 E/A: 0.80 E'Lateral: 8.59 E'Medial: 7.29 E/E' Med: 11.10 E/E' Lat: 9.40 PHT: 69.00 MVA PHT: 3.19 Decel [place]: 3.41 Aortic Valve AoV Pk Jermaine: 1.84 AoV Mn Jermaine: 1.25 AoV VTI: 0.40 AoV Pk Grad: 14.00 Aov Mn Grad: 7.00 JOVANNI Cont.VTI: 1.73 LVOT LVOT Pk Jermaine: 1.24 LVOT Mn Jermaine: 0.79 LVOT VTI: 0.24 LVOT Pk Grad: 6.00 LVOT Mn Grad: 3.00 LVOT Diam: 1.90 LVOT Area: 2.84 Diastolic Function MV Pk E: 0.81 MV Pk A: 1.00 E/A: 0.80 E'Medial: 7.29 E/E' Med: 11.10 E' Laterial: 8.59 E/E' Lat: 9.40 Right Ventricle TAPSE (mm): 25.60 TVS' Jermaine: 19.00 Tricuspid Valve TR Pk Jermaine: 2.36 TR Pk Grad: 22.00 Great Vessels Aorta Sinus of Valsalva: 2.70 2.0-3.5 cm Ao Asc: 3.30 2.1-3.4 cm Ao Arch: 2.70 Pulmonary Valve PV Pk Jermaine: 0.92 Peak PV Grad: 3.00 Updated in Other Vendor System with Status of Final Basil Cortez MD electronically signed on 05/11/2025 3:24:00 PM with status of Final
--- NOTE | 2025-05-11 16:00 | MHC.SHP ---
Pre-Procedural Eval Section A - 24 Hr Update-Section A only Date of Service: 05/11/25 The patient is an INPATIENT: Yes The patient has been examined within 24 hours of the surgical procedure. The History & Physical has been completed within 30 days and I have reviewed it.: Yes Section B - Complete if H&P > 30 days Chief Complaint: ?UGIB Allergies: Allergies Allergy/AdvReac Type Severity Reaction Status Date / Time adalimumab (From Humira) Allergy Palpitation Verified 05/10/25 11:49 s etanercept (From Enbrel) Allergy Palpitation Verified 05/10/25 11:49 s Plan I have reviewed the history and physical and performed a pertinent physical examination on my patient. No changes have occurred unless specified. Time Spent With Patient Time: Total time managing care of this patient today ____ minutes.
--- NOTE | 2025-05-11 18:09 | P.BOP_ITS ---
Brief Operative Note Date of Service: 05/11/25 Pre-op diagnosis: UGI bleed Post-op diagnosis: other (Gastric ulcer, Hiatal hernia) Procedure: EGD with biopsies Surgeon: Barrett Payne MD Anesthesia: MAC Was an Child Welfare Caseworker used for this Procedure?: No Estimated blood loss (mL): 2.0 Pathology: other (A. Gastric ulcer B. Gastric antrum) Condition: stable Disposition: PACU
--- NOTE | 2025-05-11 18:10 | P.EN_ITS ---
Event Note Date of Service: 05/11/25 Event Note: GI-Full note dictated EGD with biopsies 1. Nonbleeding approximately 2cm x 5mm gastric antral ulcer above pylorus with a clean base. Grossly benign, but biopsied margins of the ulcer, and then obtained separate antral biopsies 2. Hiatal hernia, no esophageal stricture. Rec: Advance diet, change to po PPI BID tomorrow, and hold all blood thinners for at least 1 to 2 weeks---would try to hold aspirin as long as possible. Avoid all NSAIDs penitentiary. Repeat upper endoscopy in 2-3 months to assess for ulcer healing. I left a VM for her son Wilfrido in this regard as well. Thanks Time Spent With Patient Time: Total time managing care of this patient today ____ minutes.
[2025-05-12] VITALS (17 sets, daily range): BP systolic 80–118; BP diastolic 40–60; PULSE 77–108; RESP 16–20; TEMP 36.2–37.6; O2SAT 97–100
--- NOTE | 2025-05-12 02:46 | OP_ITS ---
DATE OF SERVICE: 05/11/2025 SURGEON: Barrett Payne MD INDICATIONS: The patient presents for evaluation of melena and anemia. Full consent has been obtained from her for this, including risks of bleeding and perforation. PREOPERATIVE DIAGNOSIS: POSTOPERATIVE DIAGNOSIS: PROCEDURE PERFORMED: Esophagogastroduodenoscopy with biopsies. ESTIMATED BLOOD LOSS: COMPLICATIONS: ANESTHESIA: Medication used, monitored anesthesia care. ASSISTANTS: SPECIMENS: PREOPERATIVE DIAGNOSES: Melena and anemia. POSTOPERATIVE DIAGNOSES: Melena and anemia, gastric ulcer, hiatal hernia. DESCRIPTION OF PROCEDURE: The patient was placed in the left lateral decubitus position. The Olympus video gastroscope was passed in the posterior oropharynx and upper esophagus under direct vision. The scope was passed slowly to the distal esophagus. The gastroesophageal junction was visualized at 30 cm and appeared minimally irregular consistent with reflux, but no evidence of any esophagitis nor any definitive Timmons mucosa. There was no stricture. The scope entered the stomach easily. There was a small to moderate-sized hiatal hernia. The scope was advanced to the pylorus, and the duodenum was cannulated to the descending portion. The duodenum including the bulb appeared normal without mass or ulceration. Scope was withdrawn back to the stomach. The gastric antrum and body were well visualized. There was good peristalsis. Just above the pylorus was an approximately 2 to 2.5 cm wide ulcer crater with a clean base and no sign of any active bleeding. It appeared to be grossly benign. Biopsies were obtained from the margins. I also obtained biopsies from the antrum itself to check for H pylori. Again, the base of the ulcer was clean, and there was no sign of any active bleeding. The remainder of the antrum and body appeared normal. The scope was retroflexed visualizing the proximal stomach carefully, which appeared normal, without any sign of mass or ulceration. The scope was straightened and withdrawn back to the esophagus. The esophageal mucosa appeared normal. There was no sign of any stricture nor mass. The scope was withdrawn from the patient. She tolerated the procedure well and was returned to the recovery area in stable condition. IMPRESSION: 1. Gastric antral ulcer, rule out Helicobacter pylori. 2. Hiatal hernia. PLAN: The results of the pathology will be checked. I would switch her IV PPI to an oral PPI tomorrow twice a day. She had been on her PPI once a day at home. Her diet can be advanced this evening, given no sign of any active bleeding. She should have followup blood count and chemistries tomorrow. She should avoid all aspirin and blood thinners for at least a week or two. Ideally, she should stay off the aspirin long-term, but I know she has a coronary artery stent and she may need to go back on that. I am not sure why she is on Eliquis, but maybe that can be held long-term instead of the aspirin. Again, she should stay on a PPI twice a day long-term given her bleed on the once a day dose. She should avoid all NSAIDs long-term. I would recommend a repeat upper endoscopy in 2 to 3 months to assess for ulcer healing. I did call her son Wilfrido and left him a detailed voicemail in this regard. MD ALEXA Hodges/ISRAEL / [phone] MTDD
[2025-05-12 07:04] LABS: Mean Corpuscular HGB Conc 32.8 g/dl (31.0-35.0); Mean Corpuscular Hemoglobin 30.8 pg (27.0-33.0); Mean Corpuscular Volume 93.9 fL (80.0-98.0); NRBC Abs Auto 0.000 X10*3/uL (0.0-0.012); NRBC Pct Auto 0.0 /100WBC (0.0-0.2); Platelet Count 126 X10*3/uL (160-400); Red Blood Count 2.14 X10*6/uL (4.20-5.50)
[2025-05-12 07:16] LABS: White Blood Count 6.0 X10*3/uL (4.8-10.8)
[2025-05-12 07:17] LABS: Hematocrit 20.1 % (37.0-47.0); Hemoglobin 6.6 g/dl (12.0-16.0)
--- NOTE | 2025-05-12 07:18 | HO.PM.IMPN ---
Subjective Subjective Date of Service: 05/12/25 Interval History: Patient's hemoglobin 6.6, received 2 units PRBC , KUB x-ray unremarkable for any perforation-patient asymptomatic without any hematemesis, hematochezia, melena, no bowel movement Thrombocytopenia slightly downtrending, without any overt signs of bleed Review of Systems Review of Systems: Yes all other systems are reviewed and are negative Physical Exam Exam: Exam: GENERAL: The patient is a pleasant, alert, somewhat pale female, in no distress. SKIN: Warm and dry. Anicteric sclerae. Moist mucous membranes. NECK: Supple. CARDIAC: Normal S1, S2. ABDOMEN: Soft, nondistended, normal bowel sounds and nontender. Vital Signs: Vital Signs: Last Vital Signs Temp 97.2 F 05/12/25 07:12 Pulse 79 05/12/25 07:12 Resp 20 05/12/25 07:12 BP 118/58 L 05/12/25 07:12 Pulse Ox 99 05/12/25 07:12 O2 Del Method Room Air 05/12/25 07:12 BMI result Body Mass Index 31.2 Objective Data Active Medications Acetaminophen (Acetaminophen 325 Mg Tablet) 650 mg PO Q6H PRN PRN Reason: Pain, Mild 1-3,fever,headache Albuterol/Ipratropium (Albuterol/Iprat 2.5/0.5mg 3 Ml Ampul.Neb) 3 ml INHALE RBID [facility] Last Admin: 05/11/25 19:58 Dose: 3 ml Documented By: DENY Calcium Carbonate (Calcium Carbonate 750 Mg Tab.Chew) 750 mg PO Q4H PRN PRN Reason: Heartburn Docusate Sodium (Docusate Sodium 100 Mg Capsule) 100 mg PO BID [facility] Last Admin: 05/11/25 22:13 Dose: 100 mg Documented By: HAKAN Fluticasone Propionate (Fluticasone Propionate Nasal 16 Gm [place]) 2 spray NOSTRIL-B DAILY [facility] Last Admin: 05/11/25 07:49 Dose: 2 spray Documented By: KELLE Fluticasone/Vilanterol (Fluticasone/Vilanterol 200/25 Blst.W.Dev) 1 puff INHALE RDAILY [facility] Last Admin: 05/11/25 07:39 Dose: 1 puff Documented By: HO.GUIDIB Guaifenesin (Guaifenesin 200 Mg/10 Ml 10 Ml Liquid) 10 ml PO DAILY PRN PRN Reason: Cough Hydroxyzine HCl (Hydroxyzine Hcl 10 Mg Tablet) 10 mg PO BID PRN PRN Reason: Anxiety Last Admin: 05/11/25 22:13 Dose: 10 mg Documented By: HAKAN Sodium Chloride (Ns) 1,000 mls @ 100 mls/hr IVCONT .Q10H [facility] Last Admin: 05/12/25 05:57 Dose: 100 mls/hr Documented By: HAKAN Magnesium Hydroxide (Milk Of Magnesia 30 Ml Oral.Susp) 30 ml PO DAILY PRN PRN Reason: Constipation Melatonin (Melatonin 3 Mg Tablet) 6 mg PO BEDTIME PRN PRN Reason: Insomnia Multivitamins/Vitamin C (Multivitamin Tablet) 1 tab PO DAILY [facility] Last Admin: 05/11/25 07:48 Dose: 1 tab Documented By: KELLE Naloxone HCl (Naloxone Hcl 0.4 Mg/Ml Vial) 0.04 mg IVPUSH Q5M PRN PRN Reason: Excessive sedation or RR < 8 Ondansetron HCl (Ondansetron Hcl 4 Mg/2 Ml Vial) 4 mg IVPUSH Q8H PRN PRN Reason: Nausea and Vomiting Pantoprazole Sodium (Pantoprazole Sodium 40 Mg/10 Ml Vial) 40 mg IVPUSH BID@0630,1630 [facility] Last Admin: 05/12/25 05:57 Dose: 40 mg Documented By: HAKAN Sertraline HCl (Sertraline Hcl 50 Mg Tablet) 50 mg PO DAILY [facility] Last Admin: 05/11/25 07:48 Dose: 50 mg Documented By: KELLE Sodium Chloride (0.9 % Sodium Chloride Flush 3 Ml Syringe) 3 ml IVFLUSH QSHIFT [facility] Last Admin: 05/11/25 23:03 Dose: 3 ml Documented By: HAKAN Labs 05/12/25 06:34 05/12/25 06:34 Labs: Laboratory Results - last 24 hr 05/11/25 05/12/25 06:46 06:34 MCV 93.9 MCH 30.8 MCHC 32.8 RDW 13.2 Plt Count 126 L MPV 10.6 Absolute Nucleated RBC 0.000 Nucleated RBC % (auto) 0.0 PT 18.4 H D INR 1.5 H Assessment and Plan (1) Diastolic CHF: Status: Acute Plan Pt is a 79-year-old female with a PMH significant for CHF, COPD, pulmonary hypertension, VIVIANA, asthma, RA, CAD with GA s/p stenting, and esophageal stenosis s/p dilations who presents to the ED with after reporting some black and dark bloody stools earlier this morning. Pt is admitted to the hospital for treatment and further evaluation of acute blood loss anemia concerning for upper GI bleed. Acute blood loss anemia-likely secondary to bleed from biopsy sites, asymptomatic overt GI bleed Hemoglobin 6.6 today, received 2 units PRBC , we went ahead patient's aspirin and Eliquis. Likely also secondary to acute distress Hemodynamically she tends to have low blood pressure with her normal being around 90s systolic to 100. We will check CBC tomorrow Fluids running Dark colored stools likely secondary to EGD proven Nonbleeding approximately 2cm x 5mm gastric antral ulcer above pylorus with a clean base Hiatal hernia without esophageal stricture Patient underwent EGD and was noted to have nonbleeding gastric antral ulcers, biopsies taken We will monitor H&H We will continue PPI b.i.d. Holding all blood thinners to 1-2 weeks high-risk as the patient needs aspirin and anticoagulation We will likely consult with Cardiology Her presyncopal episode on the day of admission was likely in the setting of vasovagal versus hypovolemic as she responded to fluids , we will check orthostatics in the a.m. Chronic hypotension-likely her baseline, however we will continue to hydrate her with NS at 75 cc GA s/p stenting-continue home meds, we will continue to hold aspirin and anticoagulation Acute lactic acidosis was likely in the setting of hypoperfusion as she responded to fluids , less likely secondary to sepsis. Hemodynamically stable afebrile without any further episodes of hypotension or lactic acidosis Patient less likely to have CHF-TTE done on 05/11/2025 suggestive of grade 1 mild diastolic dysfunction. Mood disorder- Continue home meds hx of AFib- currently after considering consult with Cardiology, patient can consider Watchman device in outpatient settings. Currently we will continue to hold aspirin and Eliquis. Given risks versus benefits, we will hold Eliquis and consult Cardiology if she really needs to be on Eliquis Risks versus benefits explained to the patient and her son by GI physician Full Code DVT Prophylaxis: SCD boots given UGI be Given significant decrease in her hemoglobin from 12-6, high-risk of hemorrhagic shock and decompensation and sudden , patient needs at least 1-2 more days for hospitalization to maintain that she is hemodynamically stable prior to discharge. This note is constructed using voice recognition software. While every effort has been made to ensure accuracy, dye penetrant testing technician errors may have been included. Quality Stroke Does the patient have a stroke diagnosis?: No VTE Prior VTE?: No VTE Risk Level:: Medical - moderate - high VTE Device Contraindication: N/A - Device Ordered VTE Drug Contraindication: Treatment Not Indicated
[2025-05-12 07:21] LABS: Anion Gap 11 (12-20); Blood Urea Nitrogen 29 mg/dL (9-16); Calcium 8.1 mg/dL (8.4-10.2); Carbon Dioxide 21 mmol/L (22-29); Chloride 114 mmol/L (96-108); Creatinine Clr Calc Pharmacy 50.1; Estimated Glomerular Filt Rate > 60; Potassium 3.4 mmol/L (3.3-5.1); Sodium 143 mmol/L (135-145)
[2025-05-12] MEDS: Fluticasone/Vilanterol 200/25 BLST.W.DEV 1 PUFF INHALE (07:33)
[2025-05-12] MEDS: Albuterol/Iprat 2.5/0.5MG 3 ML AMPUL.NEB INHALE ×2 (07:33→18:37)
--- NOTE | 2025-05-12 08:04 | HO.POSTANES ---
Post Anesthesia Evaluation Post Anesthesia Evaluation Date of Service: 05/12/25 Vital Signs: Vital Signs Temp Pulse Resp BP Pulse Ox O2 Del Method 05/12/25 07:36 89 18 05/12/25 07:12 97.2 F 79 20 118/58 L 99 Room Air 05/12/25 03:50 108 H 106/60 05/12/25 03:49 97.7 F 108 H 18 106/60 97 Room Air 05/11/25 23:04 99 20 100/54 L 100 Room Air Anesthesia: Monitored Mental Status: Awake Pain Control: Satisfactory Nausea/Vomiting: None Hydration: Adequate Anesthesia-Related Issues: No Anes. Related Issues
[2025-05-12] MEDS: 0.9 % Sodium Chloride Flush 3 ML SYRINGE IVFLUSH ×2 (09:47→22:16)
--- NOTE | 2025-05-12 14:46 | PM.CNCAR ---
History of Present Illness History of Present Illness Date of Service: 05/12/25 Requesting physician: Marian Holcomb Consult reason: other (Presyncope, chest pain) Chief complaint: ?UGIB Narrative: I was requested see Radha in cardiology consultation today for presyncopal episode that happened in the emergency room. Patient is 79 year female with prior history of CAD status post stenting for chest pain as per her. Patient has history of hypertension, pulmonary hypertension, COPD, diastolic heart failure, asthma, rheumatoid arthritis and esophageal stenosis. Patient says she came to the hospital with chest pain syndrome although had episodes of black and dog bloody stools in the morning. When she came to the emergency room initially EKGs and troponins were negative and she was initially going to be discharged her during out of bed to chair for a bathroom break she had developed significant lightheadedness and near syncopal episode with low blood pressure. She was then subsequently transferred to with the hospital bed and decided to be admitted. She did not syncopized and lose consciousness. Yudelka's given fluid bolus. Subsequent workup showed drop in his hematocrit consistent with GI bleed. She underwent after an echocardiogram because of his symptoms which showed normal LV EF with no wall motion abnormality with mild aortic stenosis upper endoscopy procedure which showed antral ulcers. She then underwent a biopsy. This morning repeat hemoglobin in his markedly low at 6.7. She is currently receiving blood transfusions. However she says she does not feel lightheaded or having any episodes of chest pain while she is laying in bed. Hemodynamically stable. Review of Systems Constitutional: Constitutional: Reports fatigue and Reports weakness Eyes: Eyes: Reports no additional eye complaints Cardiovascular: Cardiovascular: Reports chest pain at rest (On presentation which has resolved), Denies lightheadedness, Denies Loss of Consciousness, Denies dyspnea on exertion and Denies orthopnea Respiratory: Respiratory: Reports no additional respiratory complaints and Denies dyspnea on exertion Gastrointestinal: Gastrointestinal: Reports melena Genitourinary: Genitourinary: Reports no additional female genitourinary complaints Musculoskeletal: Musculoskeletal: Reports no additional musculoskeletal complaints Integumentary/Breasts: Skin/Breast: Reports system reviewed and no additional complaints, except as docu Neurologic: Reports system reviewed and no additional complaints, except as documented and Reports weakness Psychiatric: Psychiatric: Reports no additional psychiatric complaints Endocrine: Endocrine: Reports no additional endocrine complaints and Reports fatigue PMFSH Past Medical History Medical History Paroxysmal A-fib Lymphedema Rheumatoid arthritis Diastolic CHF Pulmonary HTN COPD (chronic obstructive pulmonary disease) HTN (hypertension) Surgical History Surgical History History of laparoscopic cholecystectomy (12/27/23) Social History Social History Household Members: None Housing: Assisted Living Facility Do you presently have visiting nurse or other home services: Yes Patient Tobacco Use Status: Never used Tobacco Smoked in Last 30 Days: No Second Hand Smoke Exposure: No Use of substances other than those prescribed or required for medical reasons: No Currently Displaying Signs/Symptoms of Drug Intoxication Withdrawal: No Have you been hit, kicked, punched, or otherwise hurt by someone within the past year? If so, by whom?: No Do you feel safe in your current relationship?: No Current Relationship Is there a partner from a previous relationship who is making you feel unsafe now?: No Are you made to feel afraid or neglected: No Advance Directives: Yes Advance Directives on File: Yes Advance Directives Date on File: 12/26/23 Do you have a plan to hurt others: No Plan Recently lost weight without trying: No Eating poorly because of decreased appetite: No Nutrition Risks: No Nutritional Risk Patient : No : No Poor oral hygiene: No service: No Meds Allergies Allergy/AdvReac Type Severity Reaction Status Date / Time adalimumab (From Humira) Allergy Palpitation Verified 05/10/25 11:49 s etanercept (From Enbrel) Allergy Palpitation Verified 05/10/25 11:49 s Active Medications: Current Medications Acetaminophen (Acetaminophen 325 Mg Tablet) 650 mg PO Q6H PRN PRN Reason: Pain, Mild 1-3,fever,headache Albuterol/Ipratropium (Albuterol/Iprat 2.5/0.5mg 3 Ml Ampul.Neb) 3 ml INHALE RBID [facility] Last Admin: 05/12/25 07:33 Dose: 3 ml Calcium Carbonate (Calcium Carbonate 750 Mg Tab.Chew) 750 mg PO Q4H PRN PRN Reason: Heartburn Docusate Sodium (Docusate Sodium 100 Mg Capsule) 100 mg PO BID [facility] Last Admin: 05/12/25 09:44 Dose: 100 mg Fluticasone Propionate (Fluticasone Propionate Nasal 16 Gm [place]) 2 spray NOSTRIL-B DAILY [facility] Last Admin: 05/12/25 09:44 Dose: 2 spray Fluticasone/Vilanterol (Fluticasone/Vilanterol 200/25 Blst.W.Dev) 1 puff INHALE RDAILY [facility] Last Admin: 05/12/25 07:33 Dose: 1 puff Guaifenesin (Guaifenesin 200 Mg/10 Ml 10 Ml Liquid) 10 ml PO DAILY PRN PRN Reason: Cough Hydroxyzine HCl (Hydroxyzine Hcl 10 Mg Tablet) 10 mg PO BID PRN PRN Reason: Anxiety Last Admin: 05/11/25 22:13 Dose: 10 mg Sodium Chloride (Ns) 1,000 mls @ 100 mls/hr IVCONT .Q10H [facility] Last Admin: 05/12/25 05:57 Dose: 100 mls/hr Magnesium Hydroxide (Milk Of Magnesia 30 Ml Oral.Susp) 30 ml PO DAILY PRN PRN Reason: Constipation Melatonin (Melatonin 3 Mg Tablet) 6 mg PO BEDTIME PRN PRN Reason: Insomnia Multivitamins/Vitamin C (Multivitamin Tablet) 1 tab PO DAILY [facility] Last Admin: 05/12/25 09:44 Dose: 1 tab Naloxone HCl (Naloxone Hcl 0.4 Mg/Ml Vial) 0.04 mg IVPUSH Q5M PRN PRN Reason: Excessive sedation or RR < 8 Ondansetron HCl (Ondansetron Hcl 4 Mg/2 Ml Vial) 4 mg IVPUSH Q8H PRN PRN Reason: Nausea and Vomiting Pantoprazole Sodium (Pantoprazole Sodium 40 Mg/10 Ml Vial) 40 mg IVPUSH BID@0630,1630 [facility] Last Admin: 05/12/25 05:57 Dose: 40 mg Sertraline HCl (Sertraline Hcl 50 Mg Tablet) 50 mg PO DAILY [facility] Last Admin: 05/12/25 09:44 Dose: 50 mg Sodium Chloride (0.9 % Sodium Chloride Flush 3 Ml Syringe) 3 ml IVFLUSH QSHIFT [facility] Last Admin: 05/12/25 09:47 Dose: 3 ml Home Medications ?Medication ?Instructions ?Recorded ?Confirmed ?Last Taken ?Type acetaminophen 500 mg tablet 1,000 mg PO Q6H PRN Pain 12/26/23 05/10/25 Unknown History albuterol sulfate 90 mcg/actuation 2 inh inhalation Q4H PRN cough or 12/26/23 05/10/25 Unknown History aerosol inhaler wheezing esomeprazole magnesium 40 mg 40 mg PO DAILY PRN Acid Reflux 12/26/23 05/10/25 Unknown History capsule,delayed release hydroxyzine HCl 10 mg tablet 10 mg PO BID PRN Anxiety 12/26/23 05/10/25 Unknown History ipratropium 0.5 mg-albuterol 3 mg 3 ml inhalation Q4H PRN SOB 12/26/23 05/10/25 Unknown History (2.5 mg base)/3 mL nebulization soln fluticasone propionate 50 2 spray intranasal DAILY 01/09/25 05/10/25 Unknown History mcg/actuation nasal spray,suspension guaifenesin 100 mg/5 mL oral liquid 200 mg PO DAILY PRN Cough 01/09/25 05/10/25 Unknown History ipratropium 0.5 mg-albuterol 3 mg 3 ml inhalation BID 01/09/25 05/10/25 Unknown History (2.5 mg base)/3 mL nebulization soln sertraline 50 mg tablet 50 mg PO DAILY 01/09/25 05/10/25 Unknown History spironolactone 50 mg tablet 50 mg PO DAILY 01/09/25 05/10/25 Unknown History torsemide 20 mg tablet 100 mg PO DAILY 01/09/25 05/10/25 Unknown History apixaban 5 mg tablet (Eliquis) 5 mg PO BID 05/10/25 05/10/25 Unknown History diltiazem HCl 180 mg 180 mg PO DAILY 05/10/25 05/10/25 Unknown History capsule,extended release 24 hr fluticasone 500 mcg-salmeterol 50 1 inh inhalation BID 05/10/25 05/10/25 Unknown History mcg/dose blistr powdr for inhalation (Wixela Inhub) multivitamin with folic acid 400 1 tab PO DAILY 05/10/25 05/10/25 Unknown History mcg tablet (Daily-Anitha (with folic acid)) naproxen 375 mg tablet 375 mg PO BID 05/10/25 05/10/25 Unknown History Physical Exam Vital Signs: Vital Signs: Last Vital Signs Temp 98.7 F 05/12/25 14:26 Pulse 94 05/12/25 14:26 Resp 16 05/12/25 14:26 BP 94/53 L 05/12/25 14:26 Pulse Ox 99 05/12/25 11:02 O2 Del Method Room Air 05/12/25 11:02 BMI result Body Mass Index 31.2 Const: General: cooperative, comfortable, no acute distress, alert, awake and other (Pale) Nutritional Appearance: obese Orientation/consciousness: patient oriented x3 Limitations: no limitations HEENT: Head: Yes normocephalic and Yes atraumatic Neck: Neck: Yes trachea midline, Yes supple and Yes no JVD Resp: Effort & Inspection: normal respiratory effort Auscultation: clear to auscultation bilaterally Cardio: Jugular venous distension: no JVD Rate: regular rate Rhythm: regular rhythm Heart sounds: S1 normal heart sound present, S2 normal heart sound present, no click, no gallops, no murmurs and no rubs GI: Auscultation: normal bowel sounds Skin: General skin exam: no rashes or lesions noted Neuro: General: patient oriented x3 and no focal motor deficits Extrem: General: Yes no clubbing, cyanosis or edema Objective Labs and Meds 05/12/25 06:34 05/12/25 06:34 Lab results: Laboratory Results - last 24 hr 05/10/25 05/12/25 12:16 06:34 WBC 6.0 RBC 2.14 L Hgb 6.6 L* Hct 20.1 L* MCV 93.9 MCH 30.8 MCHC 32.8 RDW 13.2 Plt Count 126 L MPV 10.6 Absolute Nucleated RBC 0.000 Nucleated RBC % (auto) 0.0 Smear Path Review SEE NOTE Sodium 143 Potassium 3.4 Chloride 114 H Carbon Dioxide 21 L Anion Gap 11 L BUN 29 H Creatinine 0.80 Estim Creat Clear Calc 50.1 Estimated GFR > 60 Random Glucose 110 Calcium 8.1 L Blood Type A Negative Antibody Screen NEGATIVE Crossmatch See Detail Imaging Radiologist's impression: Impressions Hip/Pelvis X-Ray 05/12/25 08:54 IMPRESSION: * Mild-moderate bilateral hip arthritis. No evidence of acute fracture or dislocation. * Additional findings as above. Electronically signed by: Brent Howell MD 05/12/2025 09:12 AM [facility] [place] Assessment and Plan (1) Pre-syncope: Status: Acute Presyncope in this elderly woman as well as chest pain syndrome appears to be related to GI bleed and severe anemia. Patient has had no recurrent or evidence of any acute coronary syndrome at this point time. Continue with blood transfusions to improve hematocrit over 30. Being followed by GI and hospitalist team closely. Continue watchful signs of fluid overload as she has prior history of diastolic heart failure although clinically appears to be no symptoms of heart failure at this point time. Continue her usual other medications except for blood thinners which can be then resumed as per GI recommendations given her life-threatening GI bleed. Future if she continues to have significant anemia may consider Watchman device. She will follow up with her director life insurance as outpatient. Will sign of the case. Thank you for allowing me to partake in her care Procedures Date of Service Date of Service: 05/12/25
--- NOTE | 2025-05-12 15:22 | MHC.CM.PN ---
Per rounds, pt. is not ready to DC, she required 2 units a blood today, anticipate DC in 1-2 days.
[2025-05-12] MEDS: Lactated Ringers 1,000 ML 999 ML IV (22:11)
[2025-05-12 22:21] LABS: Hematocrit 26.1 % (37.0-47.0); Hemoglobin 8.6 g/dl (12.0-16.0); Mean Corpuscular HGB Conc 33.0 g/dl (31.0-35.0); Mean Corpuscular Hemoglobin 29.4 pg (27.0-33.0); Mean Corpuscular Volume 89.1 fL (80.0-98.0); NRBC Abs Auto 0.000 X10*3/uL (0.0-0.012); NRBC Pct Auto 0.0 /100WBC (0.0-0.2); Platelet Count 120 X10*3/uL (160-400); Red Blood Count 2.93 X10*6/uL (4.20-5.50); White Blood Count 7.3 X10*3/uL (4.8-10.8)
[2025-05-13] VITALS (14 sets, daily range): BP systolic 100–131; BP diastolic 51–61; PULSE 60–97; RESP 16–20; TEMP 36.1–36.8; O2SAT 92–99
--- NOTE | 2025-05-13 06:02 | P.EN_ITS ---
Event Note Date of Service: 05/13/25 Event Note: 9:45 am - BP dropped to 80/40 manual in both hands. Other vital signs are normal including O2 sats 98% on room air. Two units of PRBCs ordered as well as LR one liter bolus. Low BP likely secondary to volume depletion due to bleeding/blood loss. 10:02 pm - CBC post transfusions 2 units PRBCs is 8.6. 3:49 am - BP improved to 110/53 (after bolus and extra 1 unit PRBCs - the other one is still on hold). Other vital signs remained stable including oxygen satu ration. Patient has been complaining of some shortness on breath. Lasix was ordered but on hold due to soft BP. Patient has been having a good urinary output. CXR stat is negative for overload. Time Spent With Patient Time: Total time managing care of this patient today ____ minutes.
[2025-05-13 07:08] LABS: MANUAL DIFF FLAG NO
--- NOTE | 2025-05-13 07:15 | HO.PM.IMPN ---
Subjective Subjective Date of Service: 05/13/25 Interval History: Patient had a brief hypotensive episode, however had a good optimal response to fluids and blood drawn future. Patient completely asymptomatic during the entire stay. We will check orthostatics today and if she remains hemodynamically stable, we will discharge her tomorrow to follow up with PCP and GI outpatient Review of Systems Review of Systems: Yes all other systems are reviewed and are negative Physical Exam Exam: Exam: GENERAL: The patient is a pleasant, alert, somewhat pale female, in no distress. SKIN: Warm and dry. Anicteric sclerae. Moist mucous membranes. NECK: Supple. CARDIAC: Normal S1, S2. ABDOMEN: Soft, nondistended, normal bowel sounds and nontender. Vital Signs: Vital Signs: Last Vital Signs Temp 97.8 F 05/13/25 07:13 Pulse 73 05/13/25 07:13 Resp 18 05/13/25 07:13 BP 100/56 L 05/13/25 07:13 Pulse Ox 97 05/13/25 07:13 O2 Del Method Room Air 05/13/25 07:13 BMI result Body Mass Index 31.2 Objective Data Active Medications Acetaminophen (Acetaminophen 325 Mg Tablet) 975 mg PO Q6H PRN PRN Reason: Pain, Mild 1-3,fever,headache Albuterol/Ipratropium (Albuterol/Iprat 2.5/0.5mg 3 Ml Ampul.Neb) 3 ml INHALE RBID [facility] Last Admin: 05/12/25 18:37 Dose: 3 ml Documented By: JASBIR Calcium Carbonate (Calcium Carbonate 750 Mg Tab.Chew) 750 mg PO Q4H PRN PRN Reason: Heartburn Docusate Sodium (Docusate Sodium 100 Mg Capsule) 100 mg PO BID [facility] Last Admin: 05/12/25 22:11 Dose: 100 mg Documented By: ADONIS Fluticasone Propionate (Fluticasone Propionate Nasal 16 Gm [place]) 2 spray NOSTRIL-B DAILY [facility] Last Admin: 05/12/25 09:44 Dose: 2 spray Documented By: CORRY Fluticasone/Vilanterol (Fluticasone/Vilanterol 200/25 Blst.W.Dev) 1 puff INHALE RDAILY [facility] Last Admin: 05/12/25 07:33 Dose: 1 puff Documented By: NAOMY Guaifenesin (Guaifenesin 200 Mg/10 Ml 10 Ml Liquid) 10 ml PO DAILY PRN PRN Reason: Cough Hydroxyzine HCl (Hydroxyzine Hcl 10 Mg Tablet) 10 mg PO BID PRN PRN Reason: Anxiety Last Admin: 05/11/25 22:13 Dose: 10 mg Documented By: HAKAN Magnesium Hydroxide (Milk Of Magnesia 30 Ml Oral.Susp) 30 ml PO DAILY PRN PRN Reason: Constipation Melatonin (Melatonin 3 Mg Tablet) 6 mg PO BEDTIME PRN PRN Reason: Insomnia Multivitamins/Vitamin C (Multivitamin Tablet) 1 tab PO DAILY [facility] Last Admin: 05/12/25 09:44 Dose: 1 tab Documented By: CORRY Naloxone HCl (Naloxone Hcl 0.4 Mg/Ml Vial) 0.04 mg IVPUSH Q5M PRN PRN Reason: Excessive sedation or RR < 8 Ondansetron HCl (Ondansetron Hcl 4 Mg/2 Ml Vial) 4 mg IVPUSH Q8H PRN PRN Reason: Nausea and Vomiting Pantoprazole Sodium (Pantoprazole Sodium 40 Mg/10 Ml Vial) 40 mg IVPUSH BID@0630,1630 [facility] Last Admin: 05/13/25 06:21 Dose: 40 mg Documented By: ADONIS Sertraline HCl (Sertraline Hcl 50 Mg Tablet) 50 mg PO DAILY [facility] Last Admin: 05/12/25 09:44 Dose: 50 mg Documented By: CORRY Sodium Chloride (0.9 % Sodium Chloride Flush 3 Ml Syringe) 3 ml IVFLUSH QSHIFT [facility] Last Admin: 05/12/25 22:16 Dose: 3 ml Documented By: ADONIS Labs 05/13/25 06:41 05/13/25 06:41 Labs: Laboratory Results - last 24 hr 05/10/25 05/12/25 05/12/25 12:16 06:34 22:02 MCV 93.9 89.1 MCH 30.8 29.4 MCHC 32.8 33.0 RDW 13.2 14.4 Plt Count 126 L 120 L MPV 10.6 10.2 Absolute Nucleated RBC 0.000 0.000 Nucleated RBC % (auto) 0.0 0.0 Smear Path Review SEE NOTE Anion Gap 11 L Estim Creat Clear Calc 50.1 Estimated GFR > 60 Random Glucose 110 Calcium 8.1 L Blood Type A Negative Antibody Screen NEGATIVE Crossmatch See Detail Assessment and Plan (1) Diastolic CHF: Status: Acute Plan Pt is a 79-year-old female with a PMH significant for CHF, COPD, pulmonary hypertension, VIVIANA, asthma, RA, CAD with OR s/p stenting, and esophageal stenosis s/p dilations who presents to the ED with after reporting some black and dark bloody stools earlier this morning. Pt is admitted to the hospital for treatment and further evaluation of acute blood loss anemia concerning for upper GI bleed. #Acute blood loss anemia-likely secondary to bleed from biopsy sites, asymptomatic overt GI bleed Hemoglobin 9.9 today with the appropriate response to 2 units PRBC yesterday, received 2 units PRBC on 05/12/2025, we are holding patient's aspirin and Eliquis. Likely also secondary to acute distress Hemodynamically she tends to have low blood pressure with her normal being around 90s systolic to 100. 05/13: Patient had a brief hypotensive episode, however had a good optimal response to fluids and blood drawn future. Patient completely asymptomatic during the entire stay. We will check orthostatics today and if she remains hemodynamically stable, we will discharge her tomorrow to follow up with PCP and GI outpatient #Dark colored stools likely secondary to EGD proven Nonbleeding approximately 2cm x 5mm gastric antral ulcer above pylorus with a clean base #Hiatal hernia without esophageal stricture #Patient underwent EGD and was noted to have nonbleeding gastric antral ulcers, biopsies taken We will continue PPI b.i.d. Holding all blood thinners to 1-2 weeks high-risk as the patient needs aspirin and anticoagulation will likely be outpatient Her presyncopal episode on the day of admission was likely in the setting of vasovagal versus hypovolemic as she responded to fluids , we will check orthostatics in the a.m. Per cardiology note: Presyncope in this elderly woman as well as chest pain syndrome appears to be related to GI bleed and severe anemia. Patient has had no recurrent or evidence of any acute coronary syndrome at this point time. Continue with blood transfusions to improve hematocrit over 30. Being followed by GI and hospitalist team closely. Continue watchful signs of fluid overload as she has prior history of diastolic heart failure although clinically appears to be no symptoms of heart failure at this point time. Continue her usual other medications except for blood thinners which can be then resumed as per GI recommendations given her life-threatening GI bleed. Future if she continues to have significant anemia may consider Watchman device. She will follow up with her algebraist as outpatient. #Chronic hypotension-likely her baseline, however we will continue to hydrate her with NS at 75 cc #OR s/p stenting-continue home meds, we will continue to hold aspirin and anticoagulation #Acute lactic acidosis was likely in the setting of hypoperfusion as she responded to fluids , less likely secondary to sepsis. Hemodynamically stable afebrile without any further episodes of hypotension or lactic acidosis #Patient less likely to have CHF-TTE done on 05/11/2025 suggestive of grade 1 mild diastolic dysfunction. #Mood disorder- Continue home meds #hx of AFib- currently after considering consult with Cardiology, patient can consider Watchman device in outpatient settings. Currently we will continue to hold aspirin and Eliquis. Given risks versus benefits, we will hold Eliquis and Continue her usual other medications except for blood thinners which can be then resumed as per GI recommendations given her life-threatening GI bleed. Future if she continues to have significant anemia may consider Watchman device. She will follow up with her algebraist as outpatient. Full Code DVT Prophylaxis: SCD boots given UGI be Disposition: Given significant decrease in her hemoglobin , high-risk of hemorrhagic shock and decompensation and sudden , patient needs at least 1 more days for hospitalization to maintain that she is hemodynamically stable prior to discharge. We will discharge her tomorrow if she is hemodynamically stable and nonorthostatic. This note is constructed using voice recognition software. While every effort has been made to ensure accuracy, wood floor layer errors may have been included. Quality Stroke Does the patient have a stroke diagnosis?: No VTE Prior VTE?: No VTE Risk Level:: Medical - moderate - high VTE Device Contraindication: N/A - Device Ordered VTE Drug Contraindication: Treatment Not Indicated
[2025-05-13 07:27] LABS: Hematocrit 30.4 % (37.0-47.0); Hemoglobin 9.9 g/dl (12.0-16.0); Imm Gran Abs Auto 0.04 X10*3/uL (0.00-0.03); Imm Gran Pct Auto 0.8 % (0.0-0.4); Lymphocytes Absolute Auto 1.5 X10*3/uL (1.2-4.9); Mean Corpuscular HGB Conc 32.6 g/dl (31.0-35.0); Mean Corpuscular Hemoglobin 28.9 pg (27.0-33.0); Mean Corpuscular Volume 88.9 fL (80.0-98.0); NRBC Abs Auto 0.000 X10*3/uL (0.0-0.012); NRBC Pct Auto 0.0 /100WBC (0.0-0.2); Platelet Count 116 X10*3/uL (160-400); Red Blood Count 3.42 X10*6/uL (4.20-5.50); White Blood Count 5.1 X10*3/uL (4.8-10.8)
[2025-05-13 07:55] LABS: Anion Gap 7 (12-20); Blood Urea Nitrogen 14 mg/dL (9-16); Calcium 8.0 mg/dL (8.4-10.2); Carbon Dioxide 20 mmol/L (22-29); Chloride 118 mmol/L (96-108); Creatinine Clr Calc Pharmacy 60.7; Estimated Glomerular Filt Rate > 60; Potassium 3.5 mmol/L (3.3-5.1); Sodium 141 mmol/L (135-145)
[2025-05-13] MEDS: Albuterol/Iprat 2.5/0.5MG 3 ML AMPUL.NEB INHALE ×2 (08:01→19:38)
[2025-05-13] MEDS: Fluticasone/Vilanterol 200/25 BLST.W.DEV 1 PUFF INHALE (08:01)
[2025-05-13] MEDS: 0.9 % Sodium Chloride Flush 3 ML SYRINGE IVFLUSH ×2 (08:26→17:44)
[2025-05-14] MEDS: 0.9 % Sodium Chloride Flush 3 ML SYRINGE IVFLUSH ×2 (00:15→08:58)
[2025-05-14 06:39] VITALS: RESP 16
--- NOTE | 2025-05-14 07:14 | HO.PM.IMPN ---
Subjective Subjective Date of Service: 05/14/25 Review of Systems Review of Systems: Yes all other systems are reviewed and are negative Physical Exam Vital Signs: Vital Signs: Last Vital Signs Temp 97.2 F 05/13/25 23:17 Pulse 86 05/13/25 23:17 Resp 16 05/14/25 06:39 BP 131/60 05/13/25 23:17 Pulse Ox 96 05/13/25 23:17 O2 Del Method Room Air 05/13/25 23:17 BMI result Body Mass Index 31.2 Objective Data Active Medications Acetaminophen (Acetaminophen 325 Mg Tablet) 975 mg PO Q6H PRN PRN Reason: Pain, Mild 1-3,fever,headache Last Admin: 05/14/25 05:59 Dose: 975 mg Documented By: ADONIS Comments: Pt requesting acetaminophen for 04/09 pain Albuterol/Ipratropium (Albuterol/Iprat 2.5/0.5mg 3 Ml Ampul.Neb) 3 ml INHALE RBID [facility] Last Admin: 05/13/25 19:38 Dose: 3 ml Documented By: CARMINA Calcium Carbonate (Calcium Carbonate 750 Mg Tab.Chew) 750 mg PO Q4H PRN PRN Reason: Heartburn Docusate Sodium (Docusate Sodium 100 Mg Capsule) 100 mg PO BID [facility] Last Admin: 05/13/25 22:09 Dose: Not Given Documented By: FAVIO Non-Admin Reason: Loose stools Fluticasone Propionate (Fluticasone Propionate Nasal 16 Gm [place]) 2 spray NOSTRIL-B DAILY [facility] Last Admin: 05/13/25 09:52 Dose: 2 spray Documented By: AVERY Fluticasone/Vilanterol (Fluticasone/Vilanterol 200/25 Blst.W.Dev) 1 puff INHALE RDAILY [facility] Last Admin: 05/13/25 08:01 Dose: 1 puff Documented By: DOUGIE Guaifenesin (Guaifenesin 200 Mg/10 Ml 10 Ml Liquid) 10 ml PO DAILY PRN PRN Reason: Cough Hydroxyzine HCl (Hydroxyzine Hcl 10 Mg Tablet) 10 mg PO BID PRN PRN Reason: Anxiety Last Admin: 05/11/25 22:13 Dose: 10 mg Documented By: HO.CONNERM Magnesium Hydroxide (Milk Of Magnesia 30 Ml Oral.Susp) 30 ml PO DAILY PRN PRN Reason: Constipation Melatonin (Melatonin 3 Mg Tablet) 6 mg PO BEDTIME PRN PRN Reason: Insomnia Multivitamins/Vitamin C (Multivitamin Tablet) 1 tab PO DAILY [facility] Last Admin: 05/13/25 08:27 Dose: 1 tab Documented By: AVERY Naloxone HCl (Naloxone Hcl 0.4 Mg/Ml Vial) 0.04 mg IVPUSH Q5M PRN PRN Reason: Excessive sedation or RR < 8 Ondansetron HCl (Ondansetron Hcl 4 Mg/2 Ml Vial) 4 mg IVPUSH Q8H PRN PRN Reason: Nausea and Vomiting Sertraline HCl (Sertraline Hcl 50 Mg Tablet) 50 mg PO DAILY [facility] Last Admin: 05/13/25 08:27 Dose: 50 mg Documented By: AVERY Sodium Chloride (0.9 % Sodium Chloride Flush 3 Ml Syringe) 3 ml IVFLUSH QSHIFT [facility] Last Admin: 05/14/25 00:15 Dose: 3 ml Documented By: ADONIS Labs 05/14/25 08:53 05/13/25 06:41 Labs: Laboratory Results - last 24 hr 05/13/25 06:41 MCV 88.9 MCH 28.9 MCHC 32.6 RDW 14.6 Plt Count 116 L MPV 10.6 Immature Gran % (Auto) 0.8 H Neut % (Auto) 55.9 Lymph % (Auto) 28.6 [place] % (Auto) 8.6 Eos % (Auto) 5.1 H Baso % (Auto) 1.0 Lymph # (Auto) 1.5 [place] # (Auto) 0.4 Eos # (Auto) 0.3 Baso # (Auto) 0.1 Abs Immat Gran (auto) 0.04 H Absolute Neuts (auto) 2.9 Absolute Nucleated RBC 0.000 Nucleated RBC % (auto) 0.0 Anion Gap 7 L Estim Creat Clear Calc 60.7 Estimated GFR > 60 Fasting Glucose 103 H Calcium 8.0 L Quality Stroke Does the patient have a stroke diagnosis?: No VTE Prior VTE?: No VTE Risk Level:: Medical - moderate - high VTE Device Contraindication: N/A - Device Ordered VTE Drug Contraindication: Treatment Not Indicated
[2025-05-14 07:48] VITALS: BP 104/51; PULSE 70; RESP 18; TEMP 36.6; O2SAT 97
[2025-05-14] MEDS: Albuterol/Iprat 2.5/0.5MG 3 ML AMPUL.NEB INHALE (07:58)
[2025-05-14 08:00] VITALS: PULSE 70; RESP 18
[2025-05-14 08:06] VITALS: PULSE 70; RESP 18
[2025-05-14] MEDS: Fluticasone/Vilanterol 200/25 BLST.W.DEV 1 PUFF INHALE (08:06)
[2025-05-14] MEDS: dilTIAZem HCL CD 180 MG CAP.ER.24H PO (08:52)
[2025-05-14 09:38] LABS: MANUAL DIFF FLAG NO
[2025-05-14 09:55] LABS: Hematocrit 32.5 % (37.0-47.0); Hemoglobin 10.9 g/dl (12.0-16.0); Imm Gran Abs Auto 0.07 X10*3/uL (0.00-0.03); Imm Gran Pct Auto 1.2 % (0.0-0.4); Lymphocytes Absolute Auto 1.6 X10*3/uL (1.2-4.9); Mean Corpuscular HGB Conc 33.5 g/dl (31.0-35.0); Mean Corpuscular Hemoglobin 29.5 pg (27.0-33.0); Mean Corpuscular Volume 87.8 fL (80.0-98.0); NRBC Abs Auto 0.000 X10*3/uL (0.0-0.012); NRBC Pct Auto 0.0 /100WBC (0.0-0.2); Platelet Count 139 X10*3/uL (160-400); Red Blood Count 3.70 X10*6/uL (4.20-5.50); White Blood Count 5.8 X10*3/uL (4.8-10.8)
--- NOTE | 2025-05-14 11:10 | P.DS_ITS ---
DS: Providers Provider Date of Service: 05/14/25 Date of admission: 05/10/25 13:18 Date of discharge: 05/14/25 Primary care physician: Joe Smith MD Consults: 05/10/25 16:41 Consult to Gastroenterology Routine Consulting Provider: Pioneer Aries Bob Reason for consultation: ?GIB 05/11/25 14:10 Consult to Cardiology Routine Consulting Provider: [facility] [place] Reason for consultation: GI wanted cardiology clearance b4 taking pt to EGD 05/11/25 14:11 Consult to Cardiology Routine Consulting Provider: [facility] [place] [facility] Reason for consultation: NSTEMI, not compliant with Warfarin and now has CP , elevated troponin DS: Diagnosis Discharge Diagnosis (1) Diastolic CHF: Status: Acute DS: Summary Hospital Course Hospital Course: # hemorrhagic shock- Acute blood loss anemia - melena -Nonbleeding approximately 2cm x 5mm gastric antral ulcer above pylorus with a clean base #Dark colored stools likely secondary to EGD proven Nonbleeding approximately 2cm x 5mm gastric antral ulcer above pylorus with a clean base #Hiatal hernia without esophageal stricture Pt is a 79-year-old female with a PMH significant for Grade I DD, COPD not on home O2, pulmonary hypertension, VIVIANA, asthma, RA, CAD with HI s/p stenting, and esophageal stenosis s/p dilations who presents to the ED with after reporting s ome black and dark bloody stools a couple of days prior to admission on 05/10/2025. GI was consulted. We had to hold her aspirin and Eliquis on admission given melena. Patient had a brief syncopal episode while waiting for a bed upstairs in the ED-deemed secondary to hypovolemic vasovagal syncope given her brisk response to IV fluids. She underwent EGD on 05/12/2025, and was noted to have nonbleeding 2 cm into 5 mm gastric antral ulcers above the pylorus with a clean base. However the very next day she had a drop in her hemoglobin necessitating 2 units PRBC on 05/12/2025. Patient was pale but remained asymptomatic. Subsequent workup revealed hemoglobin up trending and stabilized for atleast 2 days prior to DC. Extensive education has been made that she should hold her aspirin and Eliquis until she is seen by GI and PCP, which she verbalised. Have increased her PPI to b.i.d. scheduled (used to be daily p.r.n.) #Vasovagal syncope Patient had a brief self-limited episode of vasovagal syncope contributed by melena when she was being transferred from the bed to the chair with quick recovery and an WEIGHT LOSS SALES CONSULTANT had to be called for this. She was given a bolus of fluid with could optimal response. Orthostatics were checked daily and were negative. Patient also tends to run low with SBP in the 90s to 100s. Hemodynamically stable for a few days prior to and at the time of discharge. #Chronic hypotension-likely her baseline, however we will continue to hydrate her with NS at 75 cc #HI s/p stenting-continue home meds, we will continue to hold aspirin and anticoagulation until she is cleared by GI in outpatient settings #Acute lactic acidosis POA was likely in the setting of hypoperfusion as she responded to fluids , less likely secondary to sepsis. Hemodynamically stable afebrile without any further episodes of hypotension or lactic acidosis #Patient less likely to have CHF-TTE done on 05/11/2025 suggestive of grade 1 mild diastolic dysfunction. Outpatient follow-up #Mood disorder- Continue home meds #hx of AFib- currently after considering consult with Cardiology, patient can consider Watchman device in outpatient settings. Currently we will continue to hold aspirin and Eliquis. Given risks versus benefits, we will hold Eliquis and Continue her usual other medications except for blood thinners which can be then resumed as per GI recommendations given her life-threatening GI bleed. Future if she continues to have significant anemia may consider Watchman device. She will follow up with her reel cutter as outpatient. Full Code DVT Prophylaxis: SCD boots given UGIB while in pt This note is constructed using voice recognition software. While every effort has been made to ensure accuracy, assurance senior manager insurance errors may have been included. Time spent discussing smoking cessation with patient: more than 10 minutes Status at Discharge Functional status at discharge: uses cane/walker Overall status at discharge: patient is progressing back to baseline Time Attestation Discharge Coordination Time (in mins): 55 Quality: Safe Use of Opioids Does Pt have an Active Cancer Diagnosis on the Problem List?: No Quality: Stroke Does the patient have a stroke diagnosis?: No Physical Exam Vital Signs: Vital Signs: Last Vital Signs Temp 97.8 F 05/14/25 07:48 Pulse 70 05/14/25 08:06 Resp 18 05/14/25 08:06 BP 104/51 L 05/14/25 07:48 Pulse Ox 97 05/14/25 07:48 O2 Del Method Room Air 05/14/25 07:48 BMI result Body Mass Index 31.2 DS: Data Data Completed and Pending Completed studies during hospitalization [Text1]: Procedures Resection of Gallbladder, Percutaneous Endoscopic Approach (12/26/23) Pending studies at discharge: Pending at discharge 05/11/25 17:49 Surgical [PTH] Routine Labs on day of discharge: Laboratory Results - last 24 hr 05/14/25 08:53 WBC 5.8 RBC 3.70 L Hgb 10.9 L Hct 32.5 L MCV 87.8 MCH 29.5 MCHC 33.5 RDW 15.1 Plt Count 139 L MPV 10.6 Immature Gran % (Auto) 1.2 H Neut % (Auto) 59.6 Lymph % (Auto) 27.6 [place] % (Auto) 6.9 Eos % (Auto) 4.0 Baso % (Auto) 0.7 Lymph # (Auto) 1.6 [place] # (Auto) 0.4 Eos # (Auto) 0.2 Baso # (Auto) 0.0 Abs Immat Gran (auto) 0.07 H Absolute Neuts (auto) 3.4 Absolute Nucleated RBC 0.000 Nucleated RBC % (auto) 0.0 Discharge Plan Discharge Anticipated Discharge Date/Time: 05/14/25 10:57 Patient Disposition: Home, Self-Care Discharge Diagnosis: acute blood loss anemia concerning for upper GI bleed Referrals: Joe Smith MD [Primary Care Provider, Medical] - 1 Week Discharge Medications: New naloxone 0.4 mg/mL Solution 0.04 mg IVPUSH Q5M PRN (Reason: Excessive sedation or RR < 8) 30 Days Qty: 1 0RF Continued ipratropium-albuterol 0.5 mg-3 mg(2.5 mg base)/3 mL solution for nebulization 3 ml inhalation Q4H PRN (Reason: SOB) acetaminophen 500 mg Tablet 1,000 mg PO Q6H MDD 3 GRAM PRN (Reason: Pain) albuterol sulfate 90 mcg/actuation HFA aerosol inhaler 2 inh inhalation Q4H PRN (Reason: cough or wheezing) hydroxyzine HCl 10 mg tablet 10 mg PO BID PRN (Reason: Anxiety) docusate sodium [Colace] 100 mg capsule 100 mg PO BID Qty: 30 0RF guaifenesin 100 mg/5 mL Liquid 200 mg PO DAILY PRN (Reason: Cough) ipratropium-albuterol 0.5 mg-3 mg(2.5 mg base)/3 mL Solution For Nebulization 3 ml INHALATION BID spironolactone 50 mg Tablet 50 mg PO DAILY torsemide 20 mg Tablet 100 mg PO DAILY fluticasone propionate 50 mcg/actuation [place],Suspension 2 spray INTRANASAL DAILY Rx Instructions: administer into each nostril sertraline 50 mg Tablet 50 mg PO DAILY diltiazem HCl 180 mg capsule,extended release 24hr 180 mg PO DAILY fluticasone propion-salmeterol [Wixela Inhub] 500-50 mcg/dose blister with device 1 inh INHALATION BID multivitamin with folic acid [Daily-Anitha (with folic acid)] 400 mcg tablet 1 tab PO DAILY naproxen 375 mg Tablet 375 mg PO BID esomeprazole magnesium 40 mg capsule,delayed release(DR/EC) 40 mg PO DAILY PRN (Reason: Acid Reflux) 30 Days Qty: 60 0RF Held Eliquis 5 mg tablet 5 mg PO BID Hold Instructions: Resume on 05/19/25. hold until cleared by GI Discharge Orders: Discharge Order (Routine); Ordered 05/14/25 Ordered By: Marian Holcomb Diet: Low salt diet Activity on Discharge: As tolerated Stand Alone Forms: Patient Portal Discharge page Print Language: [place] Citizen Care Plan Goals: Please continue to hold aspirin and Eliquis until cleared by GI That put you at a higher risk of stroke Please come back to the ED if you have any weakness lightheadedness or another episode of GI bleed Continue other home meds I have increased your omeprazole to twice daily that you need to continue to take at least 4 5-6 weeks to ensure adequate healing Probably GI we will repeat an EGD in outpatient settings Health Concerns: See above Plan of Treatment: See above Assessment: See above
--- NOTE | 2025-05-14 11:23 | MHC.CM.PN ---
Second IMM, pt. has been medically cleared to DC, she will go back to [facility] today via [facility] shuttle.
[2025-05-14 11:47] VITALS: BP 108/53; PULSE 83; RESP 18; TEMP 36.4; O2SAT 99
--- NOTE | 2025-05-14 13:42 | PC.NURSE ---
Pt alert and oriented x4. She has been up to the chair today. Her normal blood pressure and diuretic meds have been restarted this morning. Pt maintaining her pressures. No dizziness or other complaints. No signs of blood in stool or urine today. Pt's IV DC'd. Meds will be filled by [facility]. Belongings returned to her. She was transported to main entrance via wheelchair to await the shuttle with [facility].
--- NOTE | 2025-05-15 17:21 | P.CDIM_ITS ---
PROVIDER RESPONSE TEXT: To clarify, the appropriate diagnosis supported by the clinical indicators: Hemorrhagic disorder due to anticoagulant (Eliquis): possible QUERY TEXT: PHYSICIAN'S DOCUMENTATION REQUEST Date of Query: 05/13/2025 10:42 AM EST Patient Name: Radha Johns Admit Date: 05/10/2025 Dear Marian Holcomb MD, A review of the medical record indicates additional documentation may be needed. Please review below and update the documentation accordingly. Clinical Indicators: LABS: H/H 6.6/20.1 Transfused 3 units PRBC BP 80/45 L Short of breath, syncope, weakness, dark stools, hypotension and pallor. EGD w biopsy - nonbleeding gastric ulcer. Hold anticoagulant and aspirin for at least a week per GI. Based on the above, could you clarify which of the following is the most likely type of anemia you are evaluating, treating, and/or monitoring? Hemorrhagic disorder due to anticoagulant (Eliquis) possible, suspected, cannot rule out etc. Acute blood loss anemia due to indicate if neoplastic disease, CKD, or other Chronic iron deficiency anemia due to blood loss Other (explain) Clinically unable to determine (explain) Thank you, Jeana Ogden, CCS, CDIS Use of terms such as suspected, likely, concern for, or probable (associated with a specific diagnosis that is being evaluated, monitored, or treated as if it exists) are acceptable and can be coded in the inpatient setting, when documented at the time of discharge. Please use your independent medical judgment in providing your response. THIS QUERY IS PART OF THE PERMANENT MEDICAL RECORD
== END 2025-05-14 14:00 | disposition home or self-care (01) | DRG 377 ==
LOC: HO.ED 13:17 → HO.EDOVER 13:18 → HO.IMC 16:37
PROVIDERS: Internal Medicine; Admitting Provider Student in an Organized Health Care Education/Training Program; Emergency Provider Emergency Medicine; PCP Internal Medicine; Visit Provider Student in an Organized Health Care Education/Training Program
PROC: 0DJ08ZZ Inspection of Upper Intestinal Tract, Via Natural or Artificial Opening Endoscopic (ICD-10-PCS; CPT 43235; principal; 2025-05-11 16:30)
DX: K25.4 Chronic or unspecified gastric ulcer with hemorrhage (principal); R57.8 Other shock; D68.32 Hemorrhagic disorder due to extrinsic circulating anticoagulants; D62 Acute posthemorrhagic anemia; E87.21 Acute metabolic acidosis; K44.9 Diaphragmatic hernia without obstruction or gangrene; I95.89 Other hypotension; I48.91 Unspecified atrial fibrillation; F39 Unspecified mood [affective] disorder; E86.1 Hypovolemia; I11.9 Hypertensive heart disease without heart failure; T45.515A Adverse effect of anticoagulants, initial encounter; Z79.01 Long term (current) use of anticoagulants; Z79.51 Long term (current) use of inhaled steroids; Z79.899 Other long term (current) drug therapy
CPT/HCPCS: 36415; 71045; 73502; 80048; 80076; 82947; 83605; 83690; 84484; 85025; 85027; 85610; 86850; 86900; 86901; 86923; 88305; 88313; 88342; 93005; 93306; 94640; 97161; 99285; J2003; J2270; J2470; J2704; J3430; J7120; P9016; Q9957

== ENCOUNTER → 2025-05-10 12:01 | Outpatient (BNV) | payer OTHER, SELFPAY | PROVIDERS: Admitting Provider Student in an Organized Health Care Education/Training Program; Emergency Provider Emergency Medicine; PCP Internal Medicine; Visit Provider Internal Medicine Cardiovascular Disease | DX: R94.31 Abnormal electrocardiogram [ECG] [EKG] (principal); R55 Syncope and collapse; R00.0 Tachycardia, unspecified; R06.02 Shortness of breath | CPT/HCPCS: 93010 ==

== ENCOUNTER → 2025-05-10 12:02 | Outpatient (BNV) | payer OTHER, SELFPAY | PROVIDERS: Emergency Provider Emergency Medicine; Visit Provider Radiology Diagnostic Radiology | DX: R06.02 Shortness of breath (principal) | CPT/HCPCS: 71045 ==

== ENCOUNTER 2025-05-10 13:18 | Outpatient (BNV) | payer OTHER, SELFPAY | END 2025-05-12 08:54 | PROVIDERS: Admitting Provider Student in an Organized Health Care Education/Training Program; Emergency Provider Emergency Medicine; PCP Internal Medicine; Visit Provider Radiology Diagnostic Ultrasound | DX: M16.0 Bilateral primary osteoarthritis of hip (principal) | CPT/HCPCS: 73502 ==

== ENCOUNTER 2025-05-10 13:18 | Outpatient (BNV) | payer OTHER, SELFPAY | END 2025-05-11 12:00 | PROVIDERS: Admitting Provider Student in an Organized Health Care Education/Training Program; Emergency Provider Emergency Medicine; PCP Internal Medicine; Visit Provider Internal Medicine Cardiovascular Disease | DX: I51.89 Other ill-defined heart diseases (principal); I35.0 Nonrheumatic aortic (valve) stenosis | CPT/HCPCS: 93306 ==

== ENCOUNTER 2025-05-10 13:18 | Outpatient (BNV) | payer OTHER, SELFPAY | END 2025-05-13 03:59 | PROVIDERS: Admitting Provider Student in an Organized Health Care Education/Training Program; Emergency Provider Emergency Medicine; PCP Internal Medicine; Visit Provider Radiology Vascular & Interventional Radiology | DX: R06.02 Shortness of breath (principal) | CPT/HCPCS: 71045 ==

== ENCOUNTER → 2025-05-10 13:18 | Outpatient (BNV) | payer OTHER, SELFPAY | PROVIDERS: Admitting Provider Student in an Organized Health Care Education/Training Program; Emergency Provider Emergency Medicine; PCP Internal Medicine; Visit Provider Student in an Organized Health Care Education/Training Program | DX: I50.30 Unspecified diastolic (congestive) heart failure (principal) | CPT/HCPCS: 99233; 99499 ==

== ENCOUNTER → 2025-05-10 13:18 | Outpatient (BNV) | payer OTHER, SELFPAY | PROVIDERS: Admitting Provider Student in an Organized Health Care Education/Training Program; Emergency Provider Emergency Medicine; PCP Internal Medicine; Visit Provider Internal Medicine Cardiovascular Disease | DX: R55 Syncope and collapse (principal) | CPT/HCPCS: 99222 ==

== ENCOUNTER 2025-05-31 13:07 | Outpatient (AMB) | payer OTHER, SELFPAY ==
--- OUTSIDE RECORDS SUMMARY | 2004-08-09 | XMS_ITS | Encounter Summary ---
Author Organization [facility] Address [address] [place] [address] Phone Care Team Providers Care Patient Scheduling Coordinator Name Role Phone Unavailable Primary Care Provider Unavailabl e Encounter Details Date Type Department Care Team (Late st Contact Info) Description 08/09/2004 Hospital Encounter [facility],Outside Imaging [address] [place] [address] System, Provider Not In, [facility] [address] [address] Social History Tobacco Use Types Packs/Day Years Used Date Smoking Tobacco: Never Smokeless Tobacco: Never Alcohol Use Standard Drinks/Week Comments No 0 (1 standard drink = 0.6 oz pur e alcohol) Education Answer Date Recorded Are you interested in more education? Not on emerson e 10/26/2022 Are you concerned about learning? Not on file 10/26/2022 No 10/26/2022 No 10/26/2022 Digital Access Answer Date Recorded No 11/22/2022 No 11/22/2022 Reliable internet access at home? Not on file 11/22/2022 Device with a working camera? Not on file Intimate Partner Violence Answer Date R ecorded Are you denied basic needs s uch as food, clothing, or medical care? No 01/26/2023 In the past 12 months have y ou been in a relationship with a person who hurts, threatens, or tries to control you? No 01/26/2023 Are you denied basic needs s uch as food, clothing, or medical care? No 01/26/2023 In the past 12 months have y ou been in a relationship with a person who hurts, threatens, or tries to control you? No 01/26/2023 Comments No Sex and Gender Information Value Date Recorded Sex Assigned at Female 02/28/2019 2:49 PM EDT Legal Sex Female 9:23 AM EST Gender Identity Female 02/28/2019 2:49 PM EDT Sexual Orientation Not on file documented as of this encounter Functional Status * Calculated C-SSRS Risk Score (Lifetime/Recent) Answer Date of Assessment Author No Risk Indicated 01/26/2023 3:41 AM EDT Sanchez Silva RN * [place] Suicide Severity Rating Scale (Screener/Recent Self-Report) Question Answer Date of Assessment Author 1. Wish to be (Past 1 Month) No 023 3:41 AM EDT Sanchez Silva RN 2. Non-Specific Active Suici areli Thoughts (Past 1 Month) No 01/26/2023 3:41 AM EDT Luis Silva RN 6. Suicidal Behavior (Lifetime) No 3:41 AM EDT Sanchez Silva RN documented as of this encounter Plan of Treatment Not on file documented as of this encounter Procedures Procedure Name Priority Date/Time Associated Diagnosis Comments BI MAMMOGRAM OUTSIDE (NO INTERPRETATION) Routine 08/09/2004 12:00 AM EST documented in this encounter Results * Mammogram Outside (No Interpretation) (08/09/2004 12:00 AM EST) Narrative SYSTEMGENERATED, DOCUMENTATION - 04/01/2019 2:32 PM EDT This study is for PACS storage only and not for interpretation. us Provider Not In System [facility] OUTSIDE IMAGING W /OUT INTERPRETATION Final Result documented in this encounter Visit Diagnoses Not on filedocumented in this encounter Additional Health Concerns Infection Onset Date Last Indicated Resolved Time CoV-Risk 07/07/2020 07/12/2020 07/22/2020 1:24 AM EST COVID-19 Comment:Added per Home Health documentation. 07/26/2020 07/26/2020 07/27/2020 9:[address] CoV-Presumed 10/31/2021 10/31/2021 11/21/2021 1:21 AM EDT COVID-19 06/11/2023 06/11/2023 07/02/2023 1:22 AM EST documented as of this encounter Additional Source Comments The information contained in this document represents components of the legal health record. It is not the complete legal health record.[facility]
--- OUTSIDE RECORDS SUMMARY | 2005-09-06 | XMS_ITS | Encounter Summary ---
Author Organization [facility] Address [address] [place] [address] Phone Care Team Providers Care Clinical Administrative Coordinator Name Role Phone Unavailable Primary Care Provider Unavailabl e Encounter Details Date Type Department Care Team (Late st Contact Info) Description 09/06/2005 Hospital Encounter [facility],Outside Imaging [address] [place] [address] System, Provider Not In, [facility] [address] [address] Social History Tobacco Use Types Packs/Day Years [...] 3:41 AM EDT Sanchez Silva RN * [place] Suicide Severity Rating Scale (Screener/Recent Self-Report) Question [...] Comments BI MAMMOGRAM OUTSIDE (NO INTERPRETATION) Routine 09/06/2005 12:00 AM EST documented in this encounter Results * Mammogram Outside (No Interpretation) (09/06/2005 12:00 AM EST) Narrative SYSTEMGENERATED, DOCUMENTATION - 04/01/2019 2:33 PM EDT This study is for PACS [...] It is not the complete legal health record.[facility]
--- OUTSIDE RECORDS SUMMARY | 2009-08-19 | XMS_ITS | Encounter Summary ---
Author Organization [facility] Address [address] [place] [address] Phone Care Team Providers Care Gore Inserter Name Role Phone Unavailable Primary Care Provider Unavailabl e Encounter Details Date Type Department Care Team (Late st Contact Info) Description 08/19/2009 Hospital Encounter [facility],Outside Imaging [address] [place] [address] System, Provider Not In, [facility] [address] [address] Social History Tobacco Use Types Packs/Day Years [...] 3:41 AM EDT Sanchez Silva RN * [place] Suicide Severity Rating Scale (Screener/Recent Self-Report) Question [...] Comments BI MAMMOGRAM OUTSIDE (NO INTERPRETATION) Routine 08/19/2009 12:00 AM EST documented in this encounter Results * Mammogram Outside (No Interpretation) (08/19/2009 12:00 AM EST) Narrative SYSTEMGENERATED, DOCUMENTATION - 04/01/2019 2:34 PM EDT This study is for PACS [...] It is not the complete legal health record.[facility]
--- OUTSIDE RECORDS SUMMARY | 2011-05-08 | XMS_ITS | Encounter Summary ---
Author Organization [facility] Address [address] [place] [address] Phone Care Team Providers Care Quality Review Specialist Name Role Phone Unavailable Primary Care Provider Unavailabl e Encounter Details Date Type Department Care Team (Late st Contact Info) Description 05/08/2011 Hospital Encounter [facility],Outside Imaging [address] [place] [address] System, Provider Not In, [facility] [address] [address] Social History Tobacco Use Types Packs/Day Years [...] 3:41 AM EDT Sanchez Silva RN * [place] Suicide Severity Rating Scale (Screener/Recent Self-Report) Question Answer Date of Assessment Author 1. Wish to be (Past 1 Month) No 023 3:41 AM EDT Sanchez Silva RN 2. Non-Specific Active Suici arlei Thoughts (Past 1 Month) No 01/26/2023 3:41 AM EDT Luis Silva RN 6. Suicidal Behavior (Lifetime) No 3:41 AM EDT Sanchez Silva RN documented as of this encounter Plan of Treatment Not on file documented as of this encounter Procedures Procedure Name Priority Date/Time Associated Diagnosis Comments BI MAMMOGRAM OUTSIDE (NO INTERPRETATION) Routine 05/08/2011 12:00 AM EST documented in this encounter Results * Mammogram Outside (No Interpretation) (05/08/2011 12:00 AM EST) Narrative SYSTEMGENERATED, DOCUMENTATION - [...] It is not the complete legal health record.[facility]
[2025-05-31 13:12] VITALS: BP 110/70; PULSE 74; BMI 30.7
--- NOTE | 2025-05-31 13:12 | MHC.OFFVIS ---
Vital Signs 05/31/25 13:12 Height 4 ft 11 in Weight 152 lb 1.903 oz BMI 30.7 BP 110/70 Blood Pressure Location Lt brachial Position Sitting Pulse 74 Intake Visit Reasons: HNA-WW-Yvlyos up (NS pt) Intake Note: [facility] DC ? regarding starting Eliquis has not seen GI since ED c/o some palpitations at that time but feeling good now Senior Supplier Quality Engineer Required: No Administration Manager: Administration Manager Present Accompanied by: SEPARATOR OPERATOR Allergies adalimumab (From Humira) Allergy (Verified 05/10/25 11:49) Palpitations etanercept (From Enbrel) Allergy (Verified 05/10/25 11:49) Palpitations Medication List - Last Reconciled 05/31/25 by Riaz Smith NP acetaminophen 1,000 mg PO Q6H PRN MDD 3 GRAM albuterol sulfate 90 mcg/actuation 2 inhalations inhalation Q4H PRN apixaban (Eliquis) 5 mg PO BID Held on 05/14/25. Instructions: Resume on 05/19/25. hold until cleared by GI diltiazem HCl CD 180 mg PO DAILY docusate sodium (Colace) 100 mg PO BID fluticasone propion-salmeterol 500-50 mcg/dose (Wixela Inhub) 1 inh inhalation BID fluticasone propionate 50 mcg/actuation 2 sprays intranasal DAILY guaifenesin 200 mg PO DAILY PRN hydroxyzine HCl 10 mg PO BID PRN ipratropium-albuterol 0.5 mg-3 mg(2.5 mg base)/3 mL 3 mL inhalation Q4H PRN ipratropium-albuterol 0.5 mg-3 mg(2.5 mg base)/3 mL 3 mL inhalation BID multivitamin with folic acid 400 mcg (Daily-Naitha (with folic acid)) 1 tab PO DAILY naloxone 4 mg/actuation (Narcan) 4 mg intranasal Q3M PRN 30 days naproxen 375 mg PO BID omeprazole 40 mg PO BID 30 days sertraline 50 mg PO DAILY spironolactone 50 mg PO DAILY torsemide 100 mg PO DAILY HPI Comments Details: This is a 80 year old female pt coming in for a hospital discharge follow up, accompanied by PIZZA CHEF from her group home center. Patient is a very poor historian and difficult to obtain true history and the PIZZA CHEF did not know any history either. Most of the history was obtained from old records scanned into the system. Patient with a history of paroxysmal AFib, diastolic heart failure, lymphedema, pulmonary hypertension and COPD. Patient states that she had a cardiac stent placed in about a year ago but looking at the records scanned in, patient had a cardiac catheterization at [facility] that showed no coronary artery disease. Patient was recently in the hospital for chest pain and blood in the stool. Patient was noted to have severe anemia and her Eliquis and aspirin was stopped. GI was consulted and underwent an EGD that showed nonbleeding gastric ulcer. Patient received 2 units of PRBC during the hospital stay. Patient states that since discharge from the hospital she has not followed with [facility] who she regularly follows. Patient also thinks that she is following a aws architect regularly at [facility] however upon checking the [facility] system patient is not a patient there. Patient states that she has been compliant with her medications is the nurse at the center is administering them for her. They have however been holding Eliquis and aspirin. Patient is denying any bleeding or blood in stool. Today, patient is reporting feeling well overall without any cardiac symptoms of exertional chest pain, shortness of breath, palpitations, dizziness, orthopnea, PND, presyncope or syncope. [facility] Medical History (Updated 06/01/25 @ 12:45 by Riaz Simth NP) CAD (coronary artery disease) Paroxysmal A-fib Lymphedema Rheumatoid arthritis Diastolic CHF Pulmonary HTN COPD (chronic obstructive pulmonary disease) HTN (hypertension) Surgical History History of laparoscopic cholecystectomy (12/27/23) Social History Household Members: None Housing: Assisted Living Facility Do you presently have visiting nurse or other home services: Yes Patient Tobacco Use Status: Never used Tobacco Second Hand Smoke Exposure: No Advance Directives Date on File: 12/26/23 service: No Review of Systems Const Denies chills, Denies fatigue, Denies fever(s), Denies frequent falls, Denies weakness, Denies weight gain and Denies weight loss ENT Denies dizziness Card Denies chest pain, Denies leg edema, Denies lightheadedness, Denies palpitations, Denies dyspnea, Denies dyspnea on exertion, Denies orthopnea and Denies other (loss of consciousness) Resp Denies cough, Denies dyspnea and Denies dyspnea on exertion GI Denies hematochezia and Denies change in stool character Musc Denies abnormal gait, Denies muscle weakness, Denies numbness, Denies radiating pain into limb and Denies tingling Neuro Denies abnormal gait, Denies dizziness, Denies frequent falls, Denies numbness, Denies tingling and Denies weakness Endo Denies fatigue and Denies palpitations Physical Exam Vital Signs: Last Vital Signs Pulse 74 05/31/25 13:12 BP 110/70 05/31/25 13:12 BMI result Body Mass Index 30.7 Const General: cooperative, healthy appearing, comfortable and no acute distress Orientation/consciousness: patient oriented x3 HEENT Head: Yes normal to inspection Neck Neck: Yes normal visual inspection, Yes trachea midline and Yes supple Chest Chest palpation & inspection: normal inspection of the chest Resp Effort & Inspection: normal respiratory effort Auscultation: clear to auscultation bilaterally, no crackles, no rales, no rhonchi and no wheezes Cardio Jugular venous distension: no JVD Palpation: normal PMI Rate: regular rate Rhythm: regular rhythm Heart sounds: S1 normal heart sound present, S2 normal heart sound present, no click, no gallops, no murmurs and no rubs Peripheral pulses: Peripheral pulses 2+ throughout GI Inspection: Yes normal to inspection Palpation (GI): Soft to palpation Auscultation: normal bowel sounds Skin General skin exam: no rashes or lesions noted Neuro General: patient oriented x3 Extrem General: Yes normal to inspection, No no pedal edema and No calf tenderness Psych Appearance: grossly normal Mental Status: mental status grossly normal Speech and movement: Normal speech and movement present Assessment & Plan Assessment & Plan (1) Paroxysmal A-fib: Code(s): I48.0 - Paroxysmal atrial fibrillation Category: Medical Plan: History of paroxysmal AFib previously on Eliquis therapy. This was stopped in the hospital due to severe anemia and melena. Patient underwent an EGD during hospital stay that showed nonbleeding GI ulcers. Patient has not followed up with her GI since discharge yet. At this time, patient is continuing to hold her Eliquis. No reported signs of bleeding or blood in the stool since discharge. Unsure why patient was on aspirin in the 1st place as cardiac catheterization from records show no coronary artery disease. Continue to hold aspirin as well. Given her unclear etiology for the GI bleed, patient recommended to follow up with her GI. Given her high Jeromy Vasc risk score of at least 4 and bleeding risks, we discussed in detail about Watchman device implantation. The procedure along with its indications, risks, and benefits was discussed in detail with the patient. Patient in agreement of the plan to be referred to EP for possible Watchman device. Patient also advised to follow up with GI. Continue diltiazem for rate control. Heart rate today was regular. (2) Diastolic CHF: Code(s): I50.30 - Unspecified diastolic (congestive) heart failure Category: Medical Plan: Chronic history of diastolic heart failure. Known pulmonary hypertension with a history of COPD and asthma. Also with a history of lymphedema. Clinically stable and euvolemic. Continue Aldactone and torsemide. Advised on low-salt diet, daily weight monitoring, and wearing compression socks. (3) Anemia: Code(s): D64.9 - Anemia, unspecified Plan: As above. (4) HTN (hypertension): Code(s): I10 - Essential (primary) hypertension Category: Medical Plan: Blood pressure today is well-controlled. Continue current regimen. Advised to monitor blood pressures at home with a goal less than 130/80. Advised on low-salt diet. (5) Hospital discharge follow-up: Code(s): Z51.89 - Encounter for other specified aftercare Plan: As above. Follow up after EP consultation. In the interim, patient will call the office with any concerns or change in symptoms. We will try to obtain records from PCP. This note was generated using voice recognition software. While every effort has been made to ensure accuracy and proper forest technician, there may be occasional errors that could affect the content or meaning of the described symptoms. Orders: Referrals Cardiac Electrophysiology Referral D64.9 - Anemia, unspecified, I48.0 - Paroxysmal atrial fibrillation Coding Level of Care Code Est Pt Level 4 (63769) Complex visit Add On G2211 Diagnoses Paroxysmal A-fib I48.0 Diastolic CHF I50.30 Anemia D64.9 HTN (hypertension) I10 Hospital discharge follow-up Z51.89 Time Spent (min) 38 Comment Time spent in reviewing the chart, test results, assessment, counseling and documentation.
--- OUTSIDE RECORDS SUMMARY | 2025-05-31 16:46 | XMS_ITS | Encounter Summary ---
Author Organization [facility] Address [address] [place] [address] Phone Care Team Providers Care Automobile Upholsterer Apprentice Name Role Phone Joe Smith MD Primary Care Provider [phone] Encounter Details Date Type Department Care Team (Late st Contact Info) Description 10/26/2020 Procedure Pass [facility] [address] [place] [address] Social History Tobacco Use Types Packs/Day Years Used Date Smoking Tobacco: Never Smokeless Tobacco: Never Alcohol Use Standard Drinks/Week Comments No 0 (1 standard drink = 0.6 oz pur e alcohol) Comments No Sex and Gender Information Value Date Recorded Sex Assigned at Female 02/28/2019 2:49 PM EDT Legal Sex Female 9:23 AM EST Gender Identity Female 02/28/2019 2:49 PM EDT Sexual Orientation Not on file documented as of this encounter Plan of Treatment Not on file documented as of this encounter Visit Diagnoses Not on filedocumented in this encounter Additional Health Concerns Infection Onset Date Last Indicated Resolved Time CoV-Presumed 10/31/2021 10/31/2021 11/21/2021 1:21 AM EDT COVID-19 06/11/2023 06/11/2023 07/02/2023 1:22 AM EST Assessment Noted Time PHQ-2 Depression Total Score: 0 08/08/19 9:39 AM EST documented as of this encounter Care Teams Automobile Upholsterer Apprentice Relationship Specialty Start Date End Date Joe Smith MD [address] [place] [address] [email or web address] PCP - General Internal Medicine 08/10/20 documented as of this encounter Additional Source Comments The information contained in this document represents components of the legal health record. It is not the complete legal health record.[facility]
--- OUTSIDE RECORDS SUMMARY | 2025-05-31 16:46 | XMS_ITS | Clinical Summary ---
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 accelerate her asthma treatment at this time as I do not think that the primary source of her shortness of breath. In addition, steroid therapy would make her edema worse Assessment & Plan (11/28/2018 4:39 PM EDT): Exam difficult to assess and thus cannot exclude the presence of active asthma. Recommend continue Symbicort but start use with a spacer device. Continue albuterol but given limited subjective benefit, would limit to no more than 4 times day in total. Allergic rhinitis 11/28/2018 Assessment & Plan (09/15/2021 10:42 AM EDT): Continue Flonase Assessment & Plan (06/16/2021 9:41 AM EST): Continue Flonase daily. Assessment & Plan (11/28/2018 4:40 PM EDT): Continue Flonase as needed. Restrictive lung disease 11/28/2018 Overview (11/14/2023): Followed by pulmonology, needs reassessment. Assessment & Plan (05/10/2022 11:34 AM EST): She is getting treated through a eco industrial development consultant for restrictive lung disease. She should continue that. This is oxygen on a as needed basis but she uses almost 3 L. Assessment & Plan (06/16/2021 9:40 AM EST): Continue encourage incentive spirometry 2-3 times daily. Assessment & Plan (11/23/2020 3:52 PM EDT): Reminded to use incentive spirometry regularly given clear chronic atelectasis from abdominal obesity. Assessment & Plan (07/21/2020 3:42 PM EST): Decreased lung excursion on exam. Encourage CPAP therapy but she remains reluctant. Assessment & Plan (05/10/2020 9:01 PM EST): Moderate restrictive lung disease, likely combination of obesity and kyphosis though cannot exclude progressive intrinsic parenchymal lung disease. Recommend follow closely with serial PFTs. No evidence for hypercapnia ABG from last year. Assessment & Plan (07/25/2019 3:37 PM EST): Severe restriction likely multifactorial. Strongly recommend undergo SNIF testing to evaluate diaphragmatic function, and will obtain repeat PFTs with respiratory muscle generation mechanic helper measurements as well. Assessment & Plan (03/22/2019 12:37 PM EDT): Completed multifactorial restriction. No significant interstitial disease seen on chest ct. Encourage use of incentive spirometry. Order sniff testing to evaluate diaphragmatic function. When more stable, would check neuromuscular studies with PFTs. Assessment & Plan (03/03/2019 2:35 PM EDT): T factorial restrictive lung disease on the basis of abdominal obesity, musculoskeletal restriction likely secondary to patient's rheumatoid arthritis, as well as possibly parenchymal lung disease though difficult to further assess. We will check room air ABG. If resting hypercapnia, would qualify for nocturnal noninvasive therapy. Otherwise can limit treatment of sleep apnea alone. Recommend use of incentive spirometry at home. Assessment & Plan (03/03/2019 10:09 AM EDT): Follows with Dr. Mustafa of pulmonology. I appreciate pulmonology's recommendations moving forward throughout this hospitalization. No changes to her current medication regimen. Respiratory saw patient and she endorsed that she did not use CPAP at home. So I do not think this was tried overnight. Patient will need to discuss with her PCP and Dr. Mustafa about initiating CPAP at home again after a sleep study is performed. From my perspective, patient is saturating well on room air and ok for discharge today. Assessment & Plan (11/28/2018 4:40 PM EDT): Plan follow-up pulmonary function studies once stable and returns for follow-up. Last available study from October 2015 for comparison. Localized edema 10/10/2018 Assessment & Plan (01/26/2023 12:39 PM EDT): - hx of diastolic heart failure and lymphedema - appears euvolemic now - cont home diuretics spironolactone and torsemide Assessment & Plan (10/27/2018 11:19 AM EDT): Venous disease was much worse on the right than the left which does correlate with the degree of edema. I have arranged for an ablation of the right venous system with Justin Yepez. She will return to see me once that is completed. I reduced to her potassium to twice a day and will renew the prescription Assessment & Plan (10/10/2018 9:39 AM EDT): Her edema is severe and is now becoming both uncomfortable and having areas of skin breakdown. She is presently taking 40 mg of furosemide 3 times a day with little in the way of weight loss. I have added 2.5 mg of Zaroxolyn to be taken with the morning dose every other day for a week and to call if her diuresis has not increased. Unclear whether some of this is due to diastolic heart failure although this could all be venous disease with her dyspnea secondary to her chronic lung issues. She will have a proBNP drawn today and I have attempted to remove up at the time of her echocardiogram. She will have a bilateral venous study done as well and a metabolic profile redrawn in about a week. Labs done several days ago were fine including renal function and potassium. Diastolic dysfunction 10/10/2018 Assessment & Plan (11/29/2023 2:37 PM EDT): Appears euvolemic on exam. Concur with current diuretic regimen. Assessment & Plan (01/19/2021 10:31 AM EDT): Continue aggressive diuresis. Resume lymphedema treatments Check labs including electrolytes and BNP today. If potassium low, may require increase in potassium or preferably spironolactone dose. Assessment & Plan (11/23/2020 3:53 PM EDT): Severe diastolic dysfunction as suspect catheterization may underestimate contribution to her dyspnea. Given stable weights and an adequate diuresis, have suggested increasing her torsemide up to 100 mg daily along with spironolactone 50 mg daily. She remains on 20 mEq of potassium replacement daily. She is scheduled for electrolytes to be checked in 2 days and I have ordered an additional recheck the following week. If she fails to respond to outpatient management, addition of thiazide could be considered versus short inpatient admission for IV diuresis. Assessment & Plan (08/12/2020 2:37 PM EST): Continue aggressive diuresis. Increase torsemide to 40 mg every morning. Continue spironolactone. If still an adequate diuresis, change torsemide to twice daily. Check electrolytes and 1 week. Assessment & Plan (07/25/2019 3:35 PM EST): Reports poor urine output with current Lasix dose. However, volume status appears relatively euvolemic. States recent electrolytes within normal limits. Recommend trial changing furosemide to Bumex with equivalent dosing of 2 mg in a.m. and 1 mg in p.m. Patient would likely benefit from follow-up electrolytes in 1 to 2 weeks. She will also call if no significant improvement in diuresis. Assessment & Plan (10/27/2018 11:18 AM EDT): No evidence for heart failure. Diastolic function was normal on her echocardiogram. Assessment & Plan (10/10/2018 9:40 AM EDT): Possible contributor to her edema. Echocardiogram pending. Her ECG has a tendency towards low voltage with a sinus rhythm at [address] or T wave changes. Closed fracture of radius 11/28/2017 Encounters Date Type Department Care Team Description 05/20/2025 Telephone [facility] [address] [place] [address] Joe Smith MD TCM Visit (Booked 05/25) 05/18/2025 Orders Only [facility] [address] [place] [address] ProviderVadim MD 05/17/[address] [place] [address] Kristina Kingsley MA Forms & Paperwork ([facility] ) 05/13/2025 Orders Only [facility] [address] [place] [address] ProviderVadim MD 05/12/2025 Orders Only [facility] [address] [place] [address] ProviderVadim MD from Last 3 Months Immunizations Immunization Administration Dates Next Due COVID-19 (Pre-04/22) Pfizer Vaccine, mRNA, PF 07/23/2020,07/02/2020 INFLUENZA, SPLIT VIRUS, TRIVALENT PF 04/24/2013 INFLUENZA, SPLIT VIRUS, TRIV ALENT W/ PRESERVATIVE IM 03/18/2012,03/13/2011,04/09/2010,03/01 Influenza High-Dose Trivalen t Preservative Free IM 05/08/2024,04/07/2019,03/26/2018,04/03,04/16/2016 Influenza Quadrivalent Adjuv anted Preservative Free IM 05/09/2021 Influenza Quadrivalent MDCK w/Preservative IM 04/15/2023 Influenza Quadrivalent Prese rvative Free IM 03/01/2015 Influenza, Unspecified Formulation 03/31,05/14/2008,03/31/2008,04/30,05/07/2006,04/18/2005 Novel [id number], Injectable 06/17/2009 Pneumococcal conjugate PCV13 03/03/2019,08/13/19 15 Pneumococcal polysaccharide PPSV23 04/24/2013 RSV Vaccine (monovalent, adjuvanted) 02/20/2023 Td (adult) 5 Lf Tetanus Toxo id, PF, Adsorbed 05/08/2024 Tdap 11/27/2006 Social History Tobacco Use Types Packs/Day Years Used Date Smoking Tobacco: Never Smokeless Tobacco: Never Tobacco Cessation:Counseling Given: Not Answered Alcohol Use Standard Drinks/Week Comments No 0 [...] PM EDT Sexual Orientation Not on file Last Filed Vital Signs Vital Sign Reading Time Taken Comments Blood Pressure 114/52 05/21/2024 9:43 AM EST Pulse 78 05/21/2024 9:43 AM EST Temperature 36.2 C (97.2 F) 05/21/2024 9:43 AM EST Respiratory Rate 18 05/21/2024 9:43 AM EST Oxygen Saturation 98% 05/21/2024 9:43 AM EST Inhaled Oxygen Concentration - - Weight 78.5 kg (173 lb) 06/01/2024 3:49 PM EST Height 144.8 cm (4' 9 ) 06/01/2024 3:49 PM EST Body Mass Index 37.44 06/01/2024 3:49 PM EST Plan of Treatment Health Maintenance Due Date Last Done Comments ZOSTER VACCINES (1 of 2) 1997 OSTEOPOROSIS SCREENING INITIAL (ONE-TIME) 2012 DEPRESSION SCREENING 11/21/2021 11/21/2020, 08/08/19 21 BLOOD PRESSURE 11/18/2024 05/21/2024 INFLUENZA VACCINE (#1) 2025 , 04/15/2023, 05/09/2021, Additional history exists COVID-19 VACCINE (2024- season) 2025 04/15/2023, 05/01/2022, 10/24/2021, Additional history exists LIPID PANEL 05/08/2025 05/08/2024, 03/01, 11/20/2019, Additional history exists POTASSIUM LEVEL 05/08/2025 05/08/2024, 10/29, 01/27/2023, Additional history exists Adult Td,Tdap Booster 05/08/2034 05/08/2024, 007 PNEUMOCOCCAL VACCINES (50+ years) Completed 03/03/2019, 08/13/2014, 04/24/2013 RSV VACCINE Completed 02/20/2023 HEPATITIS C SCREENING Completed 05/08/2024 SMOKING STATUS SCREENING (Once After 26 Yrs) Completed 06/01/2024 HEPATITIS A VACCINES Aged Out No long er eligible based on patient's age to complete this topic HIB VACCINES Aged Out No longer eligi ble based on patient's age to complete this topic MENINGOCOCCAL VACCINES (ACWY) Aged Out No longer eligible based on patient's age to complete this topic MENINGOCOCCAL VACCINES (B) Aged Out N o longer eligible based on patient's age to complete this topic Medical Devices Implanted Type Area Tallow Refiner Device Identifier Shelf Expiration Date Model / Serial / Lot Cervial Fushion Procedures Procedure Name Priority Date/Time Associated Diagnosis Comments OUTSIDE IMAGING Routine 05/13/2025 2:42 PM EST OUTSIDE IMAGING Routine 05/12/2025 3:53 PM EST OUTSIDE IMAGING Routine 05/11/2025 1:33 PM EST LIPID PANEL Routine 05/08/2024 11:28 AM EST Medicare annual wellness visit, subsequent HEPATITIS C ANTIBODY, QUALITATIVE Routine 05/08/2024 11:28 AM EST Need for hepatitis C screening test Medicare annual wellness visit, subsequent BASIC METABOLIC PANEL (BMP) Routine 05/08/2024 11:28 AM EST Medicare annual wellness visit, subsequent from Last 3 Months or Most Recently Relevant to Health Maintenance Results * Outside Imaging Report Only (05/13/2025 2:42 PM EST) Historical Provider IMG XR CHEST Final Res ult * Outside Imaging Report Only (05/12/2025 3:53 PM EST) Historical Provider IMG XR CHEST Final Res ult * Outside Imaging Report Only (05/11/2025 1:33 PM EST) Historical Provider IMJennifer XR CHEST Edited Re sult - Final * Hepatitis C antibody, qualitative (05/08/2024 11:28 AM EST) HCV NON-REACTIV E NON-REACTI VE [facility] Blood 05/08/2024 11:2 8 AM EST 05/08/2024 11:30 AM EST Joe Smith MD LAB BLOOD BKR ORDERABLES Final Result [address] [address] * (ABNORMAL) Lipid panel (05/08/2024 11:28 AM EST) HDL 83 mg/dL [facility] Comment: Interpretation <40 mg/dL: Low HDL cholesterol (major risk factor for CHD) Greater than or equal to 60 mg/dL: High HDL cholesterol ( negative risk factor for CHD) HDL - cholesterol is affected by a number of factors, e.g. smoking, excerise, hormones, sex and age. CHOLESTEROL 228 0 - 240 mg/dL [facility] TRIGLYCERIDES 126 30 - 160 mg/dL [facility] LDL 120 50 - 129 mg/dL [facility] Comment: LDL levels in terms of risk for coronary heart disease: <100 mg/dL: Optimal 100-129 mg/dL: Near or above optimal 130-159 mg/dL: Borderline high 160-189 mg/dL: High >190 mg/dL: Very High CARDIAC RISK RATIO 2.7(L) 3.3 - 4.4 C [facility] Blood 05/08/2024 11:2 8 AM EST 05/08/2024 11:30 AM EST us Joe Smith MD LAB BLOOD BKR ORDERABLES Final Result Performing Organization Address City/State/[facility] Co de Phone Number [address] [phone] * (ABNORMAL) Basic metabolic panel (05/08/2024 11:28 AM EST) SODIUM 138 133 - 146 mmol/L [facility] CHLORIDE 101 96 - 108 mmol/L [facility] POTASSIUM 3.6 3.3 - 5.1 mmol/L [facility] CO2 25 21 - 35 mmol/L [facility] BUN 21(H) 6 - 19 mg/dL [facility] CREATININE 1.00 0.5 - 1.5 mg/dL [facility] GLUCOSE 94 70 - 99 mg/dL [facility] CALCIUM 9.9 8.4 - 10.3 mg/dL [facility] EGFR 58(L) >59 mL/min/1.7 3m2 [facility] Comment:Estimated glomerular filtration rate calculated using the CKD-EPI refit equation. ANION GAP 16 10 - 20 mmol/L [facility] Blood 05/08/2024 11:2 8 AM EST 05/08/2024 11:30 AM EST us Joe Smith MD LAB BLOOD BKR ORDERABLES Final Result [facility] [address] [place], [place] [phone] from Last 3 Months or Most Recently Relevant to Health Maintenance Insurance [facility] [address] [place] [address] MEDICARE PART A & B [facility] [facility] REPLACEMENT [place] [id number] [employer] [address] [place] [address] MEDICARE PART A & B MEDICARE REPLACEMENT [employer] [facility] [address] [place] [address] MEDICARE PART A & B [facility] MEDICARE REPLACEMENT [facility] [address] [place] [address] MEDICARE PART A & B Member Subscriber Plan / Payer (Ef fective 2000-Present) Name:Radha Johns Member ID:[id number] Relation to Subscriber:Self Name:Radha Johns Subscriber ID:[id number] Payer ID:[id number] Group ID:Not on file Type:Medicare Address: [employer] [address] MEDICARE REPLACEMENT [facility] [facility] [facility] [address] [place] [address] MEDICARE PART A & B [facility] MEDICARE REPLACEMENT [employer] [facility] [address] [place] [address] MEDICARE PART A & B Member Subscriber Plan / Payer (Ef fective 2000-Present) Name:Radha Johns Member ID:[id number] Relation to Subscriber:Self Name:Radha Johns Subscriber ID:[id number] Payer ID:[id number] Group ID:Not on file Type:Medicare Address: [facility] [employer] [address] MEDICARE REPLACEMENT [place] [facility] MEDICARE PART A & B [facility] MEDICARE REPLACEMENT [place] B[place] [facility] [employer] [address] [place] [address] MEDICARE PART A & B MEDICARE REPLACEMENT [place] [id number] [facility] [address] [place] [address] MEDICARE PART A & B [facility] MEDICARE REPLACEMENT [place] [id number] Advance Directives For more information, please contact: [phone] (9AM - 5PM [facility], Saturday-Saturday) Documents on File Type Date Recorded Patient Lock Setter Expl anation Healthcare Proxy 01/29/2023 12:33 PM Healthcare Proxy 06/11/2019 2:20 PM MOLST 10/03/2021 MOLST 10/03/21 * Full Code (Latest Code Status on File) Date Activated Date Inactivated Comments 01/26/2023 12:19 PM Question Answer Comments Code Status Confirmed With: Other (specify below ) * Full Code Date Activated Date Inactivated Comments 10/26/2020 10:21 AM 01/26/2023 12:19 PM Question Answer Comments Code Status Confirmed With: Patient * Full Code (Confirmed) Date Activated Date Inactivated Comments 02/28/2019 7:57 PM 03/03/2019 9:08 PM Question Answer Comments Code Status Confirmed With: Patient Healthcare Agents on File Name Relationship Healthcare Agent [facility] p Communication Wilfrido Johns Son .Primary Health Care Agent (Proxy form on file) Care Teams Button Tufting Machine Operator Relationship Specialty Start Date End Date Joe Smith MD [address] [place] [address], [place] [phone] [email or web address] PCP - General Internal Medicine 08/10/20 Additional Source Comments The information contained in this document represents components of the legal health record. It is not the complete legal health record.[facility]
--- OUTSIDE RECORDS SUMMARY | 2025-05-31 16:46 | XMS_ITS | Encounter Summary ---
Author Organization [facility] Address [address] [place] [address] Phone Care Team Providers Care Tool Mechanic Name Role Phone Catrachito Doran MD Primary Care Provider Snehal Cardenas GLUE WHEEL OPERATOR Primary Care Provider Catrachito Doran MD Primary Care Provider [phone] Ruth Purcell GLUE WHEEL OPERATOR Primary Care Provider Joe Smith MD Primary Care Provider [phone] Encounter Details Date Type Department Care Team (Late st Contact Info) Description 10/18/2018 Transcribe Orders [facility] Phleb Main [address] [place] [address] Snehal Cardenas, GLUE WHEEL OPERATOR [address] [place], [place] [phone] [email or web address] Hypokalemia (Primary Dx) Social History Tobacco Use Types Packs/Day Years Used Date Smoking Tobacco: Never Smokeless Tobacco: Never Alcohol Use Standard Drinks/Week Comments No 0 (1 standard drink = 0.6 oz pur e alcohol) Comments Unknown Sex and Gender Information Value Date Recorded Sex Assigned at Female 02/28/2019 2:49 PM EDT Legal Sex Female 9:23 AM EST Gender Identity Female 02/28/2019 2:49 PM EDT Sexual Orientation Not on file documented as of this encounter Plan of Treatment Not on file documented as of this encounter Results * (ABNORMAL) Basic metabolic panel (10/18/2018 12:08 PM EDT) SODIUM 133 133 - 146 mmol/L [facility] CHLORIDE 84(L) 96 - 108 mmol/L [facility] POTASSIUM 2.3(LL) 3.3 - 5.1 mmol/L [facility] Comment: Critical Value. Results called to and read back by: Qiana [email or web address] 10/18/2018 [place] [facility] CO2 35 21 - 35 mmol/L [facility] BUN 15 6 - 19 mg/dL [facility] CREATININE 0.90 0.5 - 1.5 mg/dL [facility] GLUCOSE 115(H) 70 - 99 mg/dL [facility] CALCIUM 9.3 8.4 - 10.3 mg/dL [facility] EGFR 64 >59 mL/min/1.7 3m2 [facility] Comment:If patient is black, multiply result by 1.159. Estimated glomerular filtration rate calculated using the CKD-EPI equation. ANION GAP 16 10 - 20 mmol/L [facility] Blood 10/18/2018 12:0 8 PM EDT 10/18/2018 12:11 PM EDT us Snehal Cardenas GLUE WHEEL OPERATOR LAB BLOOD BKR ORDERABLE S Final Result [address] [address] documented in this encounter Visit Diagnoses Diagnosis Hypokalemia- Primary Hypopotassemia documented in this encounter Additional Health Concerns Infection Onset Date Last Indicated Resolved Time CoV-Risk 07/07/2020 07/12/2020 07/22/2020 1:24 AM EST COVID-19 Comment:Added per Home Health documentation. 07/26/2020 07/26/2020 07/27/2020 9:[address] CoV-Presumed 10/31/2021 10/31/2021 11/21/2021 1:21 AM EDT COVID-19 06/11/2023 06/11/2023 07/02/2023 1:22 AM EST documented as of this encounter Care Teams Tool Mechanic Relationship Specialty Start Date End Date Catrachito Doran MD [address] [place] [address] [email or web address] PCP - General 04/18/17 12/02/18 Snehal Cardenas NP [address] [place] [id number] [email or web address] PCP - General Family Medicine 12/03/18 02/16/19 Catrachito Doran MD [address] [place] [phone] [email or web address] PCP - General Family Medicine 02/17/19 09/09/19 Ruth Purcell NP [address] [place] [id number] PCP - General Family Medicine 09/10/19 08/09/20 Joe Smith MD [address] [place] [address], [address] [place] [address] [email or web address] PCP - General Internal Medicine 08/10/20 documented as of this encounter Additional Source Comments The information contained in this document represents components of the legal health record. It is not the complete legal health record.[facility]
--- OUTSIDE RECORDS SUMMARY | 2025-05-31 16:47 | XMS_ITS | Encounter Summary ---
Author Organization [facility] Address [address] [place] [address] Phone Care Team Providers Care Fitness And Wellness Instructor Name Role Phone Catrachito Doran MD Primary Care Provider [phone] Snehal Cardenas SIZE WORKER Primary Care Provider Catrachito Doran MD Primary Care Provider [phone] Ruth Purcell SIZE WORKER Primary Care Provider [phone] Joe Smith MD Primary Care Provider [phone] Encounter Details Date Type Department Care Team (Late st Contact Info) Description 10/03/2018 Transcribe Orders [facility] Specimen Processing [address] [place] [address] Maria Teresa Boothe, SIZE WORKER [address] [place], [place] [phone] Social History Tobacco Use Types Packs/Day Years [...] documented as of this encounter Care Teams Fitness And Wellness Instructor Relationship Specialty Start Date End Date Catrachito Doran MD [address] [place] [address] [email or web address] PCP - General 04/18/17 12/02/18 Snehal Cardenas NP [address] [place] [address] [email or web address] PCP - General Family Medicine 12/03/18 02/16/19 Catrachito Doran MD [address] [place] [address] [email or web address] PCP - General Family Medicine 02/17/19 09/09/19 Ruth Purcell NP [address] [place] [address] PCP - General Family Medicine 09/10/19 08/09/20 Joe Smith MD [address] [place] [address], [address] [place] [address] [email or web address] PCP - General Internal Medicine 08/10/20 documented as of this encounter Additional Source Comments The information contained in this document represents components of the legal health record. It is not the complete legal health record.[facility]
--- OUTSIDE RECORDS SUMMARY | 2025-05-31 16:47 | XMS_ITS | Encounter Summary ---
Author Organization [facility] Address [address] [place] [address] Phone Care Team Providers Care Microbiological Analyst Name Role Phone Joe Smith MD Primary Care Provider [phone] Encounter Details Date Type Department Care Team (Late st Contact Info) Description 09/01/2020 Ancillary Orders Non-Invasive Cardiology [address] [place] [address] Catrachito Mustafa MD [address] [place] [id number] [email or web address] SOB (shortness of breath) Social History Tobacco Use Types Packs/Day Years [...] documented as of this encounter Results * NC Stress Result for Nuclear Stress Test (09/01/2020 11:05 AM EST) Max BP Systolic 116 mmHg [facility] Max BP Diastolic 60 mmHg [facility] Max HR 120 BPM [facility] Resting HR 79 BPM [facility] Resting BP Systolic 106 mmHg [facility] Resting BP Diastolic 60 mmHg [facility] Peak METS 1.0 METS [facility] Peak HR 113 BPM [facility] Anatomical Region Laterality Modality Heart Other 09/01/2020 9:59 AM EST 09/01/2020 11:02 AM EST Narrative 09/01/2020 2:34 PM EST Response to Stress The patient exercised for minutes seconds, achieving 1.0 METS at peak exercise. Baseline blood pressure was 106/60 mmHg, and baseline heart rate was 79 bpm. The patient achieved a peak heart rate of 113 bpm, which is% of their maximum predicted heart rate. REPORT- Test was performed as a pharmaceutical test due not being able to ambulate without walker, cane, and shortness of breath. 0.4 mg Regadenoson (lexiscan) given IV push over 10 seconds as per protocol immediately followed by injection of Tc99m Sestamibi by [facility] nuclear powerplant mechanic helper. 1. EKG - Baseline EKG showed sinus rhythm, with non specific ST-T wave abnormalities, 78 bpm. There was an exaggeration on of baseline ST abnormalities after the injection of Lexiscan. 2. SYMPTOMS - After the injection of Lexiscan she reported 5/ chest tightness which continued in recovery, 75mg Aminophyline given for reversal which resolved chest pressure. 3. PHYSIOLOGY - Resting HR was 78bpm. After Lexiscan injection, HR 120bpm (81%MPHR) , BP 106/60 prior to Lexiscan, BP 116/60 after Lexiscan, BP 102/60 on discharge from stress lab. 4. ARRHYTHMIAS - None Conclusion - There were no EKG changes suggestive of ischemia, with symptoms concerning for angina. Nuclear images pending and will be reported separately. Codi Rodas, AIRCRAFT TOOL MAKER with Dr. Yepez . us Catrachito Mustafa MD CV NM CARDIAC Final Result documented in this encounter Visit Diagnoses Diagnosis SOB (shortness of breath) Shortness of breath SOB (shortness of breath) Shortness of breath documented in this encounter Additional Health Concerns Infection Onset Date Last Indicated Resolved Time CoV-Presumed 10/31/2021 10/31/2021 11/21/2021 1:21 AM EDT COVID-19 06/11/2023 06/11/2023 07/02/2023 1:22 AM EST Assessment Noted Time PHQ-2 Depression Total Score: 0 08/08/19 21 9:39 AM EST documented as of this encounter Care Teams Microbiological Analyst Relationship Specialty Start Date End Date Joe Smith MD [address] [place] [address], [address] [place] [phone] [email or web address] PCP - General Internal Medicine 08/10/20 documented as of this encounter Additional Source Comments The information contained in this document represents components of the legal health record. It is not the complete legal health record.[facility]
--- OUTSIDE RECORDS SUMMARY | 2025-05-31 16:47 | XMS_ITS | Encounter Summary ---
Author Organization [facility] Address [address] [place] [address] [place] [address] Phone Care Team Providers Care Braid Pattern Setter Name Role Phone Catrachito Doran MD Primary Care Provider [phone] Snehal Cardenas FIELD ARTILLERY RADAR OPERATOR Primary Care Provider Catrachito Doran MD Primary Care Provider [phone] Ruth Purcell FIELD ARTILLERY RADAR OPERATOR Primary Care Provider Joe Smith MD Primary Care Provider [phone] Encounter Details Date Type Department Care Team (Late st Contact Info) Description 01/07/2018 Ancillary Orders [address] [phone] Joelle Chau PA-C [address] [place] [address] Orthopedics & Sports Medicine, [place], [place] [phone] [email or web address] Wrist pain, left Social History Tobacco Use Types Packs/Day Years [...] documented as of this encounter Results * XR WRIST 2 VIEWS (LEFT) (01/09/2018 10:29 AM EDT) Narrative Elise Leggett - 01/09/2018 10:29 AM EDT This image report has been auto-finalized and has not been read by a Radiologist. Interpretation has been included in the provider encounter note for this date of service. us Abi Rodriguez MD IMG XR UPPER EXTREMITY Final Result documented in this encounter Visit Diagnoses Diagnosis Wrist pain, left Pain in joint, forearm Wrist pain, left Pain in joint, forearm documented in this encounter Additional Health Concerns Infection Onset Date Last Indicated Resolved Time CoV-Risk 07/07/2020 07/12/2020 07/22/2020 1:24 AM EST COVID-19 Comment:Added per Home Health documentation. 07/26/2020 07/26/2020 07/27/2020 9:[address] CoV-Presumed 10/31/2021 10/31/2021 11/21/2021 1:21 AM EDT COVID-19 06/11/2023 06/11/2023 07/02/2023 1:22 AM EST documented as of this encounter Care Teams Braid Pattern Setter Relationship Specialty Start Date End Date Catrachito Doran MD [address] [place] [address] [email or web address] PCP - General 04/18/17 12/02/18 Snehal Cardenas NP [address] [place] [address] [email or web address] PCP - General Family Medicine 12/03/18 02/16/19 Catrachito Doran MD [address] [place] [address] [email or web address] PCP - General Family Medicine 02/17/19 09/09/19 Ruth Purcell NP [address] [place] [phone] PCP - General Family Medicine 09/10/19 08/09/20 Joe Smith MD [address] [place] [address], [address] [place] [address] [email or web address] PCP - General Internal Medicine 08/10/20 documented as of this encounter Additional Source Comments The information contained in this document represents components of the legal health record. It is not the complete legal health record.[facility]
--- OUTSIDE RECORDS SUMMARY | 2025-05-31 16:47 | XMS_ITS | Encounter Summary ---
Author Organization [facility] Address [address] [place] [address] Phone Care Team Providers Care Carpenter Mine Name Role Phone Catrachito Doran MD Primary Care Provider [phone] Snehal Cardenas VIDEO MACHINES MECHANIC Primary Care Provider Catrachito Doran MD Primary Care Provider [phone] Ruth Purcell VIDEO MACHINES MECHANIC Primary Care Provider Joe Smith MD Primary Care Provider Encounter Details Date Type Department Care Team (Late st Contact Info) Description 05/21/2017 Ancillary Orders Virtual Department [address] [place] [address] Maria Teresa Boothe NP [address] [place], [place] [phone] Diastolic heart failure, unspecified heart failure chronicity Social History Tobacco Use Types Packs/Day Years Used Date Smoking Tobacco: Never Assessed Comments Unknown Sex and Gender Information Value Date Recorded Sex Assigned at Female 02/28/2019 2:49 PM EDT Legal Sex Female 9:23 AM EST Gender Identity Female 02/28/2019 2:49 PM EDT Sexual Orientation Not on file documented as of this encounter Plan of Treatment Not on file documented as of this encounter Visit Diagnoses Diagnosis Diastolic heart failure, unspecified heart failure chronicity documented in this encounter Additional Health Concerns Infection Onset Date Last Indicated Resolved Time CoV-Risk 07/07/2020 07/12/2020 07/22/2020 1:24 AM EST COVID-19 Comment:Added per Home Health documentation. 07/26/2020 07/26/2020 07/27/2020 9:[address] CoV-Presumed 10/31/2021 10/31/2021 11/21/2021 1:21 AM EDT COVID-19 06/11/2023 06/11/2023 07/02/2023 1:22 AM EST documented as of this encounter Care Teams Carpenter Mine Relationship Specialty Start Date End Date Catrachito Doran MD [address] [place] [address] [email or web address] PCP - General 04/18/17 12/02/18 Snehal Cardenas NP [address] [place] [address] [email or web address] PCP - General Family Medicine 12/03/18 02/16/19 Catrachito Doran MD [address] [place] [address] [email or web address] PCP - General Family Medicine 02/17/19 09/09/19 Ruth Purcell NP [address] [place] [address] PCP - General Family Medicine 09/10/19 08/09/20 Joe Smith MD [address] [place] [address], [address] [place] [address] [email or web address] PCP - General Internal Medicine 08/10/20 documented as of this encounter Additional Source Comments The information contained in this document represents components of the legal health record. It is not the complete legal health record.[facility]
--- OUTSIDE RECORDS SUMMARY | 2025-05-31 16:47 | XMS_ITS | Encounter Summary ---
Author Organization [facility] Address [address] [place] [address] Phone Care Team Providers Care Professor Of Criminal Justice Name Role Phone Joe Smith MD Primary Care Provider [phone] Encounter Details Date Type Department Care Team (Late st Contact Info) Description 05/18/2025 Orders Only [facility] [address] [place] [address] Provider, MD Vadim [address] [place], [place] [id number] Social History Tobacco Use Types Packs/Day Years [...] Date/Time Associated Diagnosis Comments OUTSIDE IMAGING Routine 05/11/2025 1:33 PM EST documented in this encounter Results * Outside Imaging Report Only (05/11/2025 1:33 PM EST) us Historical Provider MD ALMAZAN XR CHEST Edited Re sult - Final documented in this encounter Visit Diagnoses Not on filedocumented in this encounter Additional Health Concerns Assessment Noted Time PHQ-2 Depression Total Score: 0 08/08/19 21 9:39 AM EST documented as of this encounter Care Teams Professor Of Criminal Justice Relationship Specialty Start Date End Date Joe Smith MD [address] [place] [address], [address] [place] [address] [email or web address] PCP - General Internal Medicine 08/10/20 documented as of this encounter Additional Source Comments The information contained in this document represents components of the legal health record. It is not the complete legal health record.[facility]
--- OUTSIDE RECORDS SUMMARY | 2025-05-31 16:47 | XMS_ITS | Encounter Summary ---
Author Organization [facility] Address [address] [place] [address] Phone Care Team Providers Care Camp Attendant Name Role Phone Joe Smith MD Primary Care Provider [phone] Encounter Details Date Type Department Care Team (Late st Contact Info) Description 05/12/2025 Orders Only [facility] [address] [place] [address] Provider, MD Vadim [address] [place], [place] [phone] Social History Tobacco Use Types Packs/Day Years [...] Date/Time Associated Diagnosis Comments OUTSIDE IMAGING Routine 05/12/2025 3:53 PM EST documented in this encounter Results * Outside Imaging Report Only (05/12/2025 3:53 PM EST) us Historical Provider MD ALMAZAN XR CHEST Final Res ult documented in this encounter Visit Diagnoses Not on filedocumented in this encounter Additional Health Concerns Assessment Noted Time PHQ-2 Depression Total Score: 0 08/08/19 21 9:39 AM EST documented as of this encounter Care Teams Camp Attendant Relationship Specialty Start Date End Date Joe Smith MD [address] [place] [address], [address] [place] [address] [email or web address] PCP - General Internal Medicine 08/10/20 documented as of this encounter Additional Source Comments The information contained in this document represents components of the legal health record. It is not the complete legal health record.[facility]
--- OUTSIDE RECORDS SUMMARY | 2025-05-31 16:47 | XMS_ITS | Encounter Summary ---
Author Organization [facility] Address [address] [place] [address] Phone Care Team Providers Care Hand Alterations Tailor Name Role Phone Joe Smith MD Primary Care Provider [phone] Encounter Details Date Type Department Care Team (Latest Contact Info) Description 03/24/2021 Transcribe Orders Virtual Department [address] [place] [address] Akbar Tariq MD [address] [place] [address] [email or web address] Dysphagia, unspecified type (Primary Dx) Social History Tobacco Use Types [...] as of this encounter Visit Diagnoses Diagnosis Dysphagia, unspecified type- Primary documented in this encounter Additional Health Concerns Infection Onset Date Last Indicated Resolved Time CoV-Presumed 10/31/2021 10/31/2021 11/21/2021 1:21 AM EDT COVID-19 06/11/2023 06/11/2023 07/02/2023 1:22 AM EST Assessment Noted Time PHQ-2 Depression Total Score: 0 08/08/19 21 9:39 AM EST documented as of this encounter Care Teams Hand Alterations Tailor Relationship Specialty Start Date End Date Joe Smith MD [address] [place] [address], [address] [place] [phone] [email or web address] PCP - General Internal Medicine 08/10/20 documented as of this encounter Additional Source Comments The information contained in this document represents components of the legal health record. It is not the complete legal health record.[facility]
--- OUTSIDE RECORDS SUMMARY | 2025-05-31 16:47 | XMS_ITS | Encounter Summary ---
Author Organization [facility] Address [address] [place] [address] Phone Care Team Providers Care Sr Account Executive Name Role Phone oJe Smith MD Primary Care Provider [phone] Encounter Details Date Type Department Care Team (Late st Contact Info) Description 03/23/2021 Transcribe Orders Virtual Department [address] [place] [address] Akbar Tariq MD [address] [address] Social History Tobacco Use Types Packs/Day Years [...] Noted Time PHQ-2 Depression Total Score: 0 02/08/20 21 9:39 AM EST documented as of this encounter Care Teams Sr Account Executive Relationship Specialty Start Date End Date Joe Smith MD [address] [place] [address], [address] [place] [address] [email or web address] PCP - General Internal Medicine 08/10/20 documented as of this encounter Additional Source Comments The information contained in this document represents components of the legal health record. It is not the complete legal health record.[facility]
--- OUTSIDE RECORDS SUMMARY | 2025-05-31 16:47 | XMS_ITS | Encounter Summary ---
Author Organization [facility] Address [address] [place] [address] [place] [address] Phone Care Team Providers Care Lyric Writer Name Role Phone Catrachito Doran MD Primary Care Provider [phone] Snehal Cardenas SALESFORCE ADMINISTRATOR Primary Care Provider Catrachito Doran MD Primary Care Provider Ruth Purcell SALESFORCE ADMINISTRATOR Primary Care Provider Joe Smith MD Primary Care Provider [phone] Encounter Details Date Type Department Care Team (Late st Contact Info) Description 01/07/2018 Ancillary Orders [facility] Orthopedics & Sports Medicine [address] [place] [phone] Joelle Chau PA-C [address] [place] [address] Orthopedics & Sports Medicine, [facility] [place], [place] [phone] [email or web address] Social History Tobacco Use Types Packs/Day Years [...] Health documentation. 07/26/2020 07/26/2020 07/27/2020 9:26 AM EST CoV-Presumed 10/31/2021 10/31/2021 11/21/2021 1:21 AM EDT COVID-19 06/11/2023 06/11/2023 07/02/2023 1:22 AM EST documented as of this encounter Care Teams Lyric Writer Relationship Specialty Start Date End Date Catrachito Doran MD [address] [place] [address] [email or web address] PCP - General 04/18/17 12/02/18 Snehal Cardenas NP [address] [place] [address] [email or web address] PCP - General Family Medicine 12/03/18 02/16/19 Catrachito Doran MD [address] [place] [address] [email or web address] PCP - General Family Medicine 02/17/19 09/09/19 Ruth Purcell NP [address] [place] [address] PCP - General Family Medicine 09/10/19 08/09/20 Joe Smith MD [address] [place] [address], [address] [place] [address] [email or web address] PCP - General Internal Medicine 08/10/20 documented as of this encounter Additional Source Comments The information contained in this document represents components of the legal health record. It is not the complete legal health record.[facility]
--- OUTSIDE RECORDS SUMMARY | 2025-05-31 16:47 | XMS_ITS | Continuity of Care Document ---
Author Organization [facility] Address [address] [place] [address] [address] [place], [place] Phone [phone] Care Team Providers Care Receivable Manager Name Role Phone John Elizalde MD Care Team Information Lead Solutions Architect Unavailable Social History Type Date Description Comments Sex Female Sex Unknown
--- OUTSIDE RECORDS SUMMARY | 2025-05-31 16:47 | XMS_ITS | Encounter Summary ---
Author Organization [facility] Address [address] [place] [address] Phone Care Team Providers Care Public Health Outreach Worker Name Role Phone Joe Smith MD Primary Care Provider [phone] Reason for Visit * Reason Onset Date Comments oxygen concentrator 02/24/2025 Encounter Details Date Type Department Care Team (Late st Contact Info) Description 02/24/2025 Telephone [employer] [facility] [address] [place] [address] Emily Acosta, RN [address] [place] [address] [email or web address] oxygen concentrator Social History Tobacco Use Types Packs/Day Years [...] on file documented as of this encounter Progress Notes * Emily Acosta RN - 02/24/2025 2:00 PM EDT [facility]. Patient has a very old O2 concentrator, which has a [employer] label. She called the company to request that they come to service it, and they do not have the patient in their system. The O2 concentrator could be as much as 20 years old, and they are unable to provide service to it. Paz requests we write an order for a new O2 concentrator- uses 1-2 L PRN for shortness of breath- along with tubing and nasal cannula- and fax it to her at [phone]. She will then fax the order to [facility] and follow up to completion. Dr. Smith- I pended an order for a new oxygen concentrator [facility]- do we need separate orders for nasal cannula & tubing? documented in this encounter Plan of Treatment Not on file documented as of this encounter Visit Diagnoses Diagnosis Restrictive lung disease- Primary Other diseases of lung, not elsewhere classified Shortness of breath documented in this encounter Additional Health Concerns Assessment Noted Time PHQ-2 Depression Total Score: 0 08/08/19 21 9:39 AM EST documented as of this encounter Care Teams Public Health Outreach Worker Relationship Specialty Start Date End Date Joe Smith MD [address] [place] [address], [address] [place] [address] [email or web address] PCP - General Internal Medicine 08/10/20 documented as of this encounter Additional Source Comments The information contained in this document represents components of the legal health record. It is not the complete legal health record.[facility]
--- OUTSIDE RECORDS SUMMARY | 2025-05-31 16:47 | XMS_ITS | Encounter Summary ---
Author Organization [facility] Address [address] [place] [address] Phone Care Team Providers Care Pathology Transcriptionist Name Role Phone Joe Smith MD Primary Care Provider [phone] Encounter Details Date Type Department Care Team (Late st Contact Info) Description 05/13/2025 Orders Only [facility] [address] [place] [address] Provider, MD Vadim [address] [place], [place] [id number] Social History Tobacco Use Types Packs/Day Years [...] OUTSIDE IMAGING Routine 05/13/2025 2:42 PM EST documented in this encounter Results * Outside Imaging Report Only (05/13/2025 2:42 PM EST) us Historical Provider MD ALMAZAN XR CHEST Final Res ult documented in this encounter Visit Diagnoses Not on filedocumented in this encounter Additional Health Concerns Assessment Noted Time PHQ-2 Depression Total Score: 0 08/08/19 21 9:39 AM EST documented as of this encounter Care Teams Pathology Transcriptionist Relationship Specialty Start Date End Date Joe Smith MD [address] [place] [address], [address] [place] [address] [email or web address] PCP - General Internal Medicine 08/10/20 documented as of this encounter Additional Source Comments The information contained in this document represents components of the legal health record. It is not the complete legal health record.[facility]
--- OUTSIDE RECORDS SUMMARY | 2025-05-31 16:48 | XMS_ITS | Encounter Summary ---
Author Organization [facility] Address [address] [place] [address] Phone Care Team Providers Care Manager Creative Name Role Phone Catrachito Doran MD Primary Care Provider Snehal Cardenas LIAISON INSPECTION LABORATORY ASSISTANT Primary Care Provider Catrachito Doran MD Primary Care Provider [phone] Ruth Purcell LIAISON INSPECTION LABORATORY ASSISTANT Primary Care Provider Joe Smith MD Primary Care Provider Reason for Referral * Outpatient Procedure - Closed Specialty Diagnoses / Procedures Referred By Brooke jon Referred To Contact Diagnoses Diastolic congestive heart failure, unspecified HF chronicity Procedures Adult Echo TTE System, Provider Not In, PhD [address] [address] Referral ID Status Reason Start Date Expiration Date Visits Re quested Visits Authorized [id number] Closed 10/01/2018 11/29/2018 1 1 Encounter Details Date Type Department Care Team (Latest Contact Info) Description 10/01/2018 Transcribe Orders Virtual Department [address] [place], [place] [phone] Maria Teresa Boothe NP [address] [place], [place] [phone] Diastolic congestive heart failure, unspecified HF chronicity (Primary Dx) Social History Tobacco Use Types [...] documented as of this encounter Results * TTE COMPREHENSIVE (10/13/2018 10:08 AM EDT) Body Surface Area 1.8 m2 Height 145 cm Weight 95 kg Systolic BP 122 mmHg Diastolic BP 62 mmHg Interventricular Septum Thickness 9 mm Left Ventricle Internal Diameter End Diastole 41 37 - 52 mm Left Ventricle Internal Diameter End Systole 31 22 - 35 mm LVOT VTI REST 225 mm Left Ventricular Outflow Tract Velocity 1.1 m/s Left Ventricular Outflow Tract Gradient at Rest 5 mmHg Left Ventricular Posterior Wall Thickness 9 mm Ejection Fraction 64 50 - 75 Percent Left Atrium Dimension Anterior-Posterior 26 15 - 40 mm Aortic Valve Peak Velocity 140.0 cm/s Aortic Valve Peak Gradient 8 mmHg Aortic Sinus Diameter 28 mm Ascending Aorta Diameter 31 mm Inferior Vena Cava Diameter 19 0.0 - 21 mm Mitral Valve Deceleration Time 197 ms Mitral Valve A Wave Speed 78.1 cm/s Mitral Valve E Wave Speed 68.9 cm/s Right Ventricle Basal Diameter 22.6 25 - 41 mm Tricuspid Valve Peak Velocity 1.9 m/s Raw LV EF% 43 % Right Ventricle to Right Atrium Pressure Gradient 14 mmHg Aortic Valve Sinus Index 1 16 19 - 27 mm Ascending Aorta Diameter 17 mm Aortic Sinus Index 16 mm Ascending Aorta Index 17 mm Left Atrial Volume 41 mL Left Atrial Volume Index 22.78 mL/m2 Right Ventricle Peak Systolic Pressure 17 mmHg Right Atrium Pressure Estimated 3 mmHg Anatomical Region Laterality Modality Heart Ultrasound Narrative 10/13/2018 4:28 PM EDT The left ventricular cavity size and wall thickness are normal. Left ventricular systolic function is normal. There are no segmental left ventricular wall motion abnormalities noted. The estimated ejection fraction is 64% (Normal 50-75%). The left ventricular ejection fraction was measured by the bi-plane method of discs. Left ventricular diastolic function appears within normal limits for age. No significant valvular disease. Normal pulmonary pressure. The RV systolic pressure was estimated from the peak TV regurgitant velocity. The estimated RV systolic pressure is 17 mmHg assuming a right atrial pressure of 3 mmHg. Compared to a prior report from 01/29/2017, no important changes. Left Ventricle The left ventricular cavity size and wall thickness are normal. Left ventricular systolic function is normal. There are no segmental left ventricular wall motion abnormalities noted. The estimated ejection fraction is 64% (Normal 50-75%). The left ventricular ejection fraction was measured by the bi-plane method of discs. Left ventricular diastolic function appears within normal limits for age. Right Ventricle The right ventricular size is normal. No evidence of right ventricular hypertrophy. The right ventricular systolic function is normal. Left Atrium The left atrium is normal in size. The left atrial anterior-posterior dimension measures 26 mm (normal 15-40 mm). The LA volume is 41 mL. The LA volume index is 22.78 mL/m2 (normal indexed value is 16-34 mL/m2). The pulmonary venous flow profiles are normal. Pulmonary vein connections were not well seen. Right Atrium The right atrium is normal in size. The IVC is normal in size (2.1cm or less). The IVC measures 19 mm (normal <=21 mm). The IVC demonstrates normal collapse with inspiration which is consistent with normal RA pressure. Mitral Valve The mitral valve appears normal. The E/A ratio is 0.9. The Med E' Jermaine is 5.5 cm/s and the Lat E' Jermaine is 9.0 cm/s. The E/E' AVG is 9.5. There is no evidence of mitral stenosis. There is mild increased thickening of both mitral valve leaflets. There is trace mitral regurgitation detected by spectral and color Doppler. Tricuspid Valve The tricuspid valve appears normal. There is no evidence of tricuspid stenosis. There is evidence of trace tricuspid regurgitation by color and spectral Doppler. Normal pulmonary pressure. The RV systolic pressure was estimated from the peak TV regurgitant velocity. The estimated RV systolic pressure is 17 mmHg assuming a right atrial pressure of 3 mmHg. Aortic Valve The aortic valve appears normal. The aortic valve is tricuspid. There is no evidence of valvular aortic stenosis. The peak aortic valve gradient is 8 mmHg. There is no evidence of aortic regurgitation by color and spectral Doppler. The visualized portions of the thoracic aorta appear normal. Pulmonic Valve The pulmonary valve appears normal. There is no evidence of pulmonic stenosis. There is evidence of trace pulmonary regurgitation by color and spectral Doppler. Pericardium There is no evidence of pericardial effusion. There no evidence of a pleural effusion. Interatrial Septum The interatrial septum appears normal. Interventricular Septum Interventricular septal motion appears normal. General Findings The image quality was fair (3). Technique(s) used in the evaluation: Color flow Doppler and Spectral Doppler. The predominant rhythm during the study was sinus. Comparison Findings Compared to a prior report from 01/29/2017, no important changes. us Provider Not In System PhD CV ECHO ORDERABLES Fi nal Result documented in this encounter Visit Diagnoses Diagnosis Diastolic congestive heart failure, unspecified HF chronicity- Primary Diastolic congestive heart failure, unspecified HF chronicity documented in this encounter Additional Health Concerns Infection Onset Date Last Indicated Resolved Time CoV-Risk 07/07/2020 07/12/2020 07/22/2020 1:24 AM EST COVID-19 Comment:Added per Home Health documentation. 07/26/2020 07/26/2020 07/27/2020 9:[address] CoV-Presumed 10/31/2021 10/31/2021 11/21/2021 1:21 AM EDT COVID-19 06/11/2023 06/11/2023 07/02/2023 1:22 AM EST documented as of this encounter Care Teams Manager Creative Relationship Specialty Start Date End Date Catrachito Doran MD [address] [place] [phone] [email or web address] PCP - General 04/18/17 12/02/18 Snehal Cardenas NP [address] [place] [phone] [email or web address] PCP - General Family Medicine 12/03/18 02/16/19 Catrachito Doran MD [address] [place] [phone] [email or web address] PCP - General Family Medicine 02/17/19 09/09/19 Ruth Purcell NP [address] [place] [phone] PCP - General Family Medicine 09/10/19 08/09/20 Joe Smith MD [address] [place] [address], [address] [place] [address] [email or web address] PCP - General Internal Medicine 08/10/20 documented as of this encounter Additional Source Comments The information contained in this document represents components of the legal health record. It is not the complete legal health record.[facility]
--- OUTSIDE RECORDS SUMMARY | 2025-05-31 16:49 | XMS_ITS | Encounter Summary ---
Author Organization [facility] Address [address] [place] [address] Phone Care Team Providers Care Senior Scientist Name Role Phone Sneahl Cardenas COLLATOR HAND Primary Care Provider Catrachito Doran MD Primary Care Provider [phone] Ruth Purcell COLLATOR HAND Primary Care Provider Joe Smith MD Primary Care Provider Encounter Details Date Type Department Care Team (Latest Contact Info) Description 01/23/2019 Transcribe Orders [facility] Specimen Processing [address] [place] [address] Catrachito Doran MD [address] [place], [place] [phone] [email or web address] Edema, unspecified type (Primary Dx) Social History Tobacco [...] as of this encounter Results * (ABNORMAL) LFTs (hepatic panel) (01/23/2019 5:50 PM EDT) ALKALINE PHOSPHATASE 93 39 - 117 U/L [facility] TOTAL BILIRUBIN 0.2 0.0 - 1.2 mg/dL [facility] DIRECT BILIRUBIN <0.2 0 - 0.3 mg/dL [facility] Bilirubin (Indirect) NOT CALCULATED 0 - 1.5 mg/dL [facility] AST 22 0 - 37 U/L [facility] ALT 23 0 - 40 U/L [facility] TOTAL PROTEIN 7.1 6.5 - 8.0 g/dL [facility] ALBUMIN 3.6(L) 3.9 - 4.8 g/dL [facility] GLOBULIN 3.5 1 - 4.8 g/dL [facility] A/G Ratio 1.03 1.00 - 4.80 RATIO [facility] Blood 01/23/2019 5:50 PM EDT 01/23/2019 6:32 PM EDT Catrachito Doran MD LAB BLOOD BKR ORDERABLES Final Result Performing Organization Address City/State/[facility] Co de Phone Number [facility] [address] [place] [address] documented in this encounter Visit Diagnoses Diagnosis Edema, unspecified type- Primary documented in this encounter Additional Health Concerns Infection Onset Date Last Indicated Resolved Time CoV-Risk 07/07/2020 07/12/2020 07/22/2020 1:24 AM EST COVID-19 Comment:Added per Home Health documentation. 07/26/2020 07/26/2020 07/27/2020 9:[address] CoV-Presumed 10/31/2021 10/31/2021 11/21/2021 1:21 AM EDT COVID-19 06/11/2023 06/11/2023 07/02/2023 1:22 AM EST documented as of this encounter Care Teams Senior Scientist Relationship Specialty Start Date End Date Snehal Cardenas NP [address] [place] [phone] [email or web address] PCP - General Family Medicine 12/03/18 02/16/19 Catrachito Doran MD [address] [place] [address] [email or web address] PCP - General Family Medicine 02/17/19 09/09/19 Ruth Purcell NP [address] [place] [address] PCP - General Family Medicine 09/10/19 08/09/20 Joe Smith MD [address] [place] [address], [address] [place] [address] [email or web address] PCP - General Internal Medicine 08/10/20 documented as of this encounter Additional Source Comments The information contained in this document represents components of the legal health record. It is not the complete legal health record.[facility]
--- OUTSIDE RECORDS SUMMARY | 2025-05-31 16:49 | XMS_ITS | Encounter Summary ---
Author Organization [facility] Address [address] [place] [address] Phone Care Team Providers Care Masonry Contractor Administrator Name Role Phone Joe Smith MD Primary Care Provider [phone] Reason for Visit * Reason Onset Date Comments Urinary Tract Infection 01/30/2024 Encounter Details Date Type Department Care Team (Late st Contact Info) Description 01/30/2024 Nurse Triage [facility] [address] [place] [address] Joe Smith MD [address] [facility] [address] [place] [address] [email or web address] Urinary Tract Infection Social History Tobacco Use Types Packs/Day Years [...] as of this encounter Progress Notes * Cecille Grimm RN - 01/31/2024 12:08 PM EDT Spoke with Chika, made aware order was faxed for the UA. She states she just did a urine about 15 minutes ago. Advised antibiotic sent. Verbalized understanding. * Cecille Grimm RN - 01/31/2024 12:02 PM EDT Order faxed. * Cecille Grimm RN - 01/31/2024 11:38 AM EDT Spoke with Chika stating a UA with culture needs to be done prior to starting the antibiotics. She was able to find a nurse, she is at [facility] in [place]. Spoke with Fred and she asked and order be faxed and they can do a send out. Fax order to . If it doesn't go through, try . * Cecille Grimm RN - 01/31/2024 11:08 AM EDT Pat states her symptoms started a couple of days ago and they are getting worse. She has burning and pain with urination, frequency, hesitancy and the urine is dark colored and cloudy. She has no fever, no flank pain. She states she cannot come in, she has no way of getting here, she lives in an [place]. She is requesting antibiotics. She is in a lot of pain. Reason for Disposition Urinating more frequently than usual (i.e., frequency) Protocols used: Urinary Qhsuhzji-CZWPI-US Nurse Triage Encounter Note Reason for Triage Radha Johns Patricia Pat Williams, Patricia Pat contacted office for Urinary Tract Infection Call Disposition See Today In Office Disposition Comments: Patient/caregiver understands and will follow disposition: Initial Symptom Screening and Assessment Care Advice Patient/Caregiver understands and will follow care advice?: Yes, plans to follow advice Urinary Vgleapvp-GEOTB-HA Cecille Grimm RN SatJan 31, 2024 11:14 AM Urinary Hesitancy REASSURANCE AND EDUCATION - URINARY HESITANCY: * There are many different reasons why people develop problems getting urination going. It is more common in men than women. * In older men a common cause is a large prostate. This is also called benign prostatic hypertrophy(BPH). Another common symptom of this is decreased force of urination. * The best treatment for hesitancy depends on the cause. Possible treatments include medicines, a procedure, or surgery. * Your doctor (or DRUM DRIER/PA) can help you find out what is causing this problem. CALL BACK IF: * Fever occurs * Pain or burning with urination * Unable to urinate and bladder feels full * You become worse Other Symptoms CALL BACK IF: * Fever occurs * Pain or burning with urination * Unable to urinate and bladder feels full * You become worse Patient will call back with additional questions or if symptoms change or worsen Cecille Grimm RN Reason for Disposition and Assessment * Cecille Grimm RN - 01/30/2024 4:27 PM EDT Attempted to return call x 3, phone did not ring, just silence * Sierra Velasquez - 01/30/2024 3:49 PM EDT Patient is reporting that they have a UTI. Attempted to schedule patient for a appointment but theyrefused it. Stated the wanted medication sent to pharmacy. I informed patient that a RN will be in touch to advise further. Thank you. Central Support Day Habilitation Supervisor (Please do not reply to this user; this inbox is not monitored.) Thank you. documented in this encounter Plan of Treatment Not on file documented as of this encounter Visit Diagnoses Diagnosis Frequency of micturition- Primary Urinary frequency Urinary tract infection Urinary tract infection, site not specified documented in this encounter Additional Health Concerns Assessment Noted Time PHQ-2 Depression Total Score: 0 08/08/19 21 9:39 AM EST documented as of this encounter Care Teams Masonry Contractor Administrator Relationship Specialty Start Date End Date Joe Smith MD [address] [place] [address], [place] [address] [email or web address] PCP - General Internal Medicine 08/10/20 documented as of this encounter Additional Source Comments The information contained in this document represents components of the legal health record. It is not the complete legal health record.[facility]
--- OUTSIDE RECORDS SUMMARY | 2025-05-31 16:49 | XMS_ITS | Encounter Summary ---
Author Organization [facility] Address [address] [place] [address] Phone Care Team Providers Care Corrections Unit Supervisor Name Role Phone Ruth Purcell NP Primary Care Provider [phone] Joe Smith MD Primary Care Provider [phone] Encounter Details Date Type Department Care Team (Late st Contact Info) Description 07/19/2020 Procedure Pass [facility], Ct Scan - [address] [address] Social History Tobacco Use Types Packs/Day Years [...] documented as of this encounter Care Teams Corrections Unit Supervisor Relationship Specialty Start Date End Date Ruth Purcell NP PCP - General Family Medicine 09/10/19 08/09/20 Joe Smith MD [address] [place] [address], [address] [place] [address] [email or web address] PCP - General Internal Medicine 08/10/20 documented as of this encounter Additional Source Comments The information contained in this document represents components of the legal health record. It is not the complete legal health record.[facility]
--- OUTSIDE RECORDS SUMMARY | 2025-05-31 16:49 | XMS_ITS | Encounter Summary ---
Author Organization [facility] Address [address] [place] [address] Phone Care Team Providers Care Airplane Cover Maker Name Role Phone Joe Smith MD Primary Care Provider [phone] Encounter Details Date Type Department Care Team (Late st Contact Info) Description 08/11/2020 Procedure Pass [facility], Ct Scan - [facility] [address] [place], [place] [phone] Social History Tobacco Use Types Packs/Day Years [...] documented as of this encounter Care Teams Airplane Cover Maker Relationship Specialty Start Date End Date Joe Smith MD [address] [facility] [address] [facility] [place] [address] [email or web address] PCP - General Internal Medicine 08/10/20 documented as of this encounter Additional Source Comments The information contained in this document represents components of the legal health record. It is not the complete legal health record.[facility]
--- OUTSIDE RECORDS SUMMARY | 2025-05-31 16:49 | XMS_ITS | Encounter Summary ---
Author Organization [facility] Address [address] [place] [address] Phone Care Team Providers Care Asbestos Remover Name Role Phone Ruth Purcell NP Primary Care Provider [phone] Joe Smith MD Primary Care Provider [phone] Encounter Details Date Type Department Care Team (Late st Contact Info) Description 07/27/2020 Transcribe Orders Virtual Department [address] [place] [address] Ruth Purcell, HUY [address] [place], [place] [phone] Abdominal pain, unspecified abdominal location (Primary Dx) Social History Tobacco Use Types [...] as of this encounter Visit Diagnoses Diagnosis Abdominal pain, unspecified abdominal location- Primary documented in this encounter Additional Health Concerns Infection Onset Date Last Indicated Resolved Time COVID-19 Comment:Added per Home Health documentation. 07/26/2020 07/26/2020 07/27/2020 9:[address] CoV-Presumed 10/31/2021 10/31/2021 11/21/2021 1:21 AM EDT COVID-19 06/11/2023 06/11/2023 07/02/2023 1:22 AM EST documented as of this encounter Care Teams Asbestos Remover Relationship Specialty Start Date End Date uRth Purcell NP PCP - General Family Medicine 09/10/19 08/09/20 Joe Smith MD [address] [place] [address], [address] [place] [address] [email or web address] PCP - General Internal Medicine 08/10/20 documented as of this encounter Additional Source Comments The information contained in this document represents components of the legal health record. It is not the complete legal health record.[facility]
--- OUTSIDE RECORDS SUMMARY | 2025-05-31 16:49 | XMS_ITS | Encounter Summary ---
Author Organization [facility] Address [address] [place] [address] Phone Care Team Providers Care String Winding Machine Operator Name Role Phone Joe Smith MD Primary Care Provider [phone] Encounter Details Date Type Department Care Team (Late st Contact Info) Description 02/21/2021 Procedure Pass [facility] Endoscopy Admitting Dept Virtual Department [address] [place], [place] [phone] Social History Tobacco Use Types Packs/Day Years [...] documented as of this encounter Care Teams String Winding Machine Operator Relationship Specialty Start Date End Date Joe Smith MD [address] [place] [address], [address] [place] [address] [email or web address] PCP - General Internal Medicine 08/10/20 documented as of this encounter Additional Source Comments The information contained in this document represents components of the legal health record. It is not the complete legal health record.[facility]
--- OUTSIDE RECORDS SUMMARY | 2025-05-31 16:49 | XMS_ITS | Encounter Summary ---
Author Organization [facility] Address [address] [place] [address] Phone Care Team Providers Care Mat Inspector Name Role Phone Joe Smith MD Primary Care Provider [phone] Reason for Visit * Reason Comments Medication Refill Encounter Details Date Type Department Care Team ([facility] st Contact Info) Description 06/11/2022 Refill [facility] Pulmonary, Allergy and Critical Care Medicine [address] [place] [address] Clayton Louis MD [address] [address] Medication Refill Social History Tobacco Use Types Packs/Day Years [...] as of this encounter Progress Notes * Noemy Hendrix MA - 06/11/2022 9:51 AM EST ASTHMA MEDICATION REFILL Last office visit: 09/15/2021 Next office visit: Visit date not found Last refill: documented in this encounter Plan of Treatment Not on file documented as of this encounter Visit Diagnoses Not on filedocumented in this encounter Additional Health Concerns Infection Onset Date Last Indicated Resolved Time COVID-19 06/11/2023 06/11/2023 07/02/2023 1:22 AM EST Assessment Noted Time PHQ-2 Depression Total Score: 0 08/08/19 21 9:39 AM EST documented as of this encounter Care Teams Mat Inspector Relationship Specialty Start Date End Date Joe Smith MD [address] [place] [address], [place] [address] [email or web address] PCP - General Internal Medicine 08/10/20 documented as of this encounter Additional Source Comments The information contained in this document represents components of the legal health record. It is not the complete legal health record.[facility]
--- OUTSIDE RECORDS SUMMARY | 2025-05-31 16:49 | XMS_ITS | Encounter Summary ---
Author Organization [facility] Address [address] [place] [address] Phone Care Team Providers Care Basket Machine Operator Name Role Phone Ruth Purcell NP Primary Care Provider Joe Smith MD Primary Care Provider [phone] Encounter Details Date Type Department Care Team (Late st Contact Info) Description 12/17/2019 Procedure Pass [facility] Endoscopy Admitting Dept Virtual Department [address] [place] [address] Social History Tobacco Use Types Packs/Day Years [...] CoV-Presumed 10/31/2021 10/31/2021 11/21/2021 1:21 AM EDT COVID-06/11/2023 06/11/2023 07/02/2023 1:22 AM EST documented as of this encounter Care Teams Basket Machine Operator Relationship Specialty Start Date End Date Ruth Purcell NP PCP - General Family Medicine 09/10/19 08/09/20 Joe Smith MD [address] [place] [address], [address] [place] [address] [email or web address] PCP - General Internal Medicine 08/10/20 documented as of this encounter Additional Source Comments The information contained in this document represents components of the legal health record. It is not the complete legal health record.[facility]
--- OUTSIDE RECORDS SUMMARY | 2025-05-31 16:49 | XMS_ITS | Encounter Summary ---
Author Organization [facility] Address [address] [facility] [address] [place] [address] Phone Care Team Providers Care Egyptologist Name Role Phone Catrachito Doran MD Primary Care Provider [phone] Ruth Purcell NP Primary Care Provider Joe Smith MD Primary Care Provider [phone] Encounter Details Date Type Department Care Team (Late st Contact Info) Description 06/10/2019 Procedure Pass [facility] Endoscopy Admitting Dept Virtual Department [address] [place] [address] Social History Tobacco Use Types Packs/Day Years [...] documented as of this encounter Care Teams Egyptologist Relationship Specialty Start Date End Date Catrachito Doran MD [address] [place] [address] [email or web address] PCP - General Family Medicine 02/17/19 09/09/19 Ruth Purcell NP [address] [place] [address] PCP - General Family Medicine 09/10/19 08/09/20 Joe Smith MD [address] [place] [address], [address] [place] [address] [email or web address] PCP - General Internal Medicine 08/10/20 documented as of this encounter Additional Source Comments The information contained in this document represents components of the legal health record. It is not the complete legal health record.[facility]
--- OUTSIDE RECORDS SUMMARY | 2025-05-31 16:49 | XMS_ITS | Encounter Summary ---
Author Organization [facility] Address [address] [place] [address] [place] [address] Phone Care Team Providers Care Staffing Branch Manager Name Role Phone Catrachito Doran MD Primary Care Provider [phone] Ruth Purcell NP Primary Care Provider Joe Smith MD Primary Care Provider [phone] Encounter Details Date Type Department Care Team (Late st Contact Info) Description 03/30/2019 Ancillary Orders Virtual Department [address] [place] [address] Catrachito Doran MD [address] [place] [id number] [email or web address] Visit for screening mammogram Social History Tobacco Use Types Packs/Day Years [...] documented as of this encounter Results * BI MAMMOGRAM SCREENING WITH TOMOSYNTHESIS WITH CAD (BILATERAL) (04/15/2019 11:46 AM EDT) Anatomical Region Laterality Modality Breast Left, Breast Right, Breast Bilateral Bila teral Mammography 04/15/2019 12:0 6 PM EDT Impressions 04/15/2019 12:08 PM EDT Normal negative. Routine screening recommended. BI-RADS CATEGORY: 1 - Negative. DENSITY: The breast tissue is almost entirely fat. POS -[id number] Narrative 04/15/2019 12:08 PM EDT Bilateral full-field digital screening mammography is obtained and read in conjunction with computer-aided detection. Tomosynthesis as well as 2-D C view imaging of both breasts in two planes also obtained. Comparison dating back to 2014. Breast parenchyma is predominantly fatty replaced. No worrisome asymmetries or masses. No suspicious calcifications. No areas of architectural distortion are present. No skin or nipple finding of concern is appreciated. Procedure Note Carol Prado MD - 04/15/2019 Bilateral full-field digital screening mammography is obtained and read inconjunction with computer-aided detection. Tomosynthesis as well as 2-D Cview imaging of both breasts in two planes also obtained. Comparison dating back to 2014. Breast parenchyma is predominantly fatty replaced. No worrisomeasymmetries or masses. No suspicious calcifications. No areas ofarchitectural distortion are present. No skin or nipple finding of concernis appreciated. IMPRESSION: Normal negative. Routine screening recommended. BI-RADS CATEGORY: 1 - Negative. DENSITY: The breast tissue is almost entirely fat. POS -[id number] Catrachito Doran MD IM MG EXAMS Final Result documented in this encounter Visit Diagnoses Diagnosis Visit for screening mammogram Visit for screening mammogram documented in this encounter Additional Health Concerns Infection Onset Date Last Indicated Resolved Time CoV-Risk 07/07/2020 07/12/2020 07/22/2020 1:24 AM EST COVID-19 Comment:Added per Home Health documentation. 07/26/2020 07/26/2020 07/27/2020 9:[address] CoV-Presumed 10/31/2021 10/31/2021 11/21/2021 1:21 AM EDT COVID-19 06/11/2023 06/11/2023 07/02/2023 1:22 AM EST documented as of this encounter Care Teams Staffing Branch Manager Relationship Specialty Start Date End Date Catrachito Doran MD [address] [place] [address] [email or web address] PCP - General Family Medicine 02/17/19 09/09/19 Ruth Purcell NP [address] [place] [address] PCP - General Family Medicine 09/10/19 08/09/20 Joe Smith MD [address] [place] [address], [address] [place] [address] [email or web address] PCP - General Internal Medicine 08/10/20 documented as of this encounter Additional Source Comments The information contained in this document represents components of the legal health record. It is not the complete legal health record.[facility]
--- OUTSIDE RECORDS SUMMARY | 2025-05-31 16:49 | XMS_ITS | Encounter Summary ---
Author Organization [facility] Address [address] [place] [address] [place] [address] Phone Care Team Providers Care Three Dimensional Map Modeler Name Role Phone Catrachito Doran MD Primary Care Provider Snehal Cardenas FRAME EXPANDER Primary Care Provider Catrachito Doran MD Primary Care Provider [phone] Ruth Purcell FRAME EXPANDER Primary Care Provider Joe Smith MD Primary Care Provider [phone] Encounter Details Date Type Department Care Team (Late st Contact Info) Description 10/22/2018 Transcribe Orders [facility] Phleb Main [address] [place] [address] Catrachito Doran MD [address] [place], [place] [phone] [email or web address] Social History Tobacco Use Types Packs/Day Years [...] documented as of this encounter Care Teams Three Dimensional Map Modeler Relationship Specialty Start Date End Date Catrachito Doran MD [address] [place] [address] [email or web address] PCP - General 04/18/17 12/02/18 Snehal Cardenas NP [address] [place] [phone] [email or web address] PCP - General Family Medicine 12/03/18 02/16/19 Catrachito Doran MD [address] [place] [address] [email or web address] PCP - General Family Medicine 02/17/19 09/09/19 Ruth Purcell NP [address] [place] [address] PCP - General Family Medicine 09/10/19 08/09/20 Joe Smith MD [address] [place] [address], [address] [place] [address] [email or web address] PCP - General Internal Medicine 08/10/20 documented as of this encounter Additional Source Comments The information contained in this document represents components of the legal health record. It is not the complete legal health record.[facility]
--- OUTSIDE RECORDS SUMMARY | 2025-05-31 16:49 | XMS_ITS | Encounter Summary ---
Author Organization [facility] Address [address] [facility] [address] [place] [address] Phone Care Team Providers Care Plastic Finisher Name Role Phone Joe Smtih MD Primary Care Provider [phone] Encounter Details Date Type Department Care Team (Late st Contact Info) Description 08/15/2023 Procedure Pass [facility] Endoscopy Admitting Dept Virtual Department [address] [place] [address] Social History Tobacco Use Types Packs/Day Years [...] documented as of this encounter Care Teams Plastic Finisher Relationship Specialty Start Date End Date Joe Smith MD [address] [facility], [address] [place] [address] [email or web address] PCP - General Internal Medicine 08/10/20 documented as of this encounter Additional Source Comments The information contained in this document represents components of the legal health record. It is not the complete legal health record.[facility]
--- OUTSIDE RECORDS SUMMARY | 2025-05-31 16:49 | XMS_ITS | Encounter Summary ---
Author Organization [facility] Address [address] [facility] [address] [place] [address] Phone Care Team Providers Care Activity Coordinator Name Role Phone Joe Smith MD Primary Care Provider [phone] Encounter Details Date Type Department Care Team (Late st Contact Info) Description 02/07/2021 Procedure Pass [facility] Endoscopy Admitting Dept Virtual Department [address] [place], [place] [id number] Social History Tobacco Use Types Packs/Day Years [...] documented as of this encounter Care Teams Activity Coordinator Relationship Specialty Start Date End Date Joe Smith MD [address] [place] [address], [address] [place] [address] [email or web address] PCP - General Internal Medicine 08/10/20 documented as of this encounter Additional Source Comments The information contained in this document represents components of the legal health record. It is not the complete legal health record.[facility]
--- OUTSIDE RECORDS SUMMARY | 2025-05-31 16:49 | XMS_ITS | Encounter Summary ---
Author Organization [facility] Address [address] [facility] [address] [place] [address] Phone Care Team Providers Care Personal Care Attendant Name Role Phone Ruth Purcell NP Primary Care Provider Joe Smith MD Primary Care Provider [phone] Encounter Details Date Type Department Care Team (Late st Contact Info) Description 07/19/2020 Procedure Pass [facility] Echo Lab [address] [place] [address] Social History Tobacco Use Types Packs/Day Years [...] documented as of this encounter Care Teams Personal Care Attendant Relationship Specialty Start Date End Date Ruth Purcell NP PCP - General Family Medicine 09/10/19 08/09/20 Joe Smith MD [address] [place] [address], [address] [place] [address] [email or web address] PCP - General Internal Medicine 08/10/20 documented as of this encounter Additional Source Comments The information contained in this document represents components of the legal health record. It is not the complete legal health record.[facility]
--- OUTSIDE RECORDS SUMMARY | 2025-05-31 16:50 | XMS_ITS | Encounter Summary ---
Author Organization [facility] Address [address] [facility] [address] [place] [address] Phone Care Team Providers Care Foreign Diplomat Name Role Phone Joe Smith MD Primary Care Provider [phone] Encounter Details Date Type Department Care Team (Late st Contact Info) Description 08/17/2022 Procedure Pass [facility] Endoscopy Admitting Dept Virtual Department [address] [place] [address] Social History Tobacco Use Types Packs/Day Years [...] documented as of this encounter Care Teams Foreign Diplomat Relationship Specialty Start Date End Date Joe Smith MD [address] [facility] [place] [address] [email or web address] PCP - General Internal Medicine 08/10/20 documented as of this encounter Additional Source Comments The information contained in this document represents components of the legal health record. It is not the complete legal health record.[facility]
== END 2025-05-31 13:54 | disposition home or self-care (01) ==
LOC: HO.HCS 13:08
PROVIDERS: PCP Internal Medicine
DX: I48.0 Paroxysmal atrial fibrillation (principal); I50.30 Unspecified diastolic (congestive) heart failure; D64.9 Anemia, unspecified; I10 Essential (primary) hypertension; Z51.89 Encounter for other specified aftercare
CPT/HCPCS: 99214; G2211

== ENCOUNTER → 2025-05-31 13:07 | Outpatient (BNVA) | payer OTHER, SELFPAY | PROVIDERS: PCP Internal Medicine | DX: Z51.89 Encounter for other specified aftercare (principal); I48.0 Paroxysmal atrial fibrillation; I11.0 Hypertensive heart disease with heart failure; I50.30 Unspecified diastolic (congestive) heart failure; D64.9 Anemia, unspecified; K28.9 Gastrojejunal ulcer, unspecified as acute or chronic, without hemorrhage or perforation; Z79.82 Long term (current) use of aspirin; Z79.01 Long term (current) use of anticoagulants; Z79.899 Other long term (current) drug therapy | CPT/HCPCS: 99212 ==